=== PATIENT | female | born 1980 | race Two or more races ===

== ENCOUNTER 2017-04-23 13:00 | Outpatient (CLI) | payer MEDICAID | END 2017-04-23 13:01 | disposition critical access hospital (66) | LOC: EMS 13:00 | PROVIDERS: ATTEND Surgery | DX: M54.9 Dorsalgia, unspecified (principal); V43.92XA Unspecified car occupant injured in collision with other type car in traffic accident, initial encounter; Y92.413 State road as the place of occurrence of the external cause | CPT/HCPCS: A0425; A0429 ==

== ENCOUNTER 2017-04-23 13:22 | Emergency (ER) | payer MEDICAID ==
[2017-04-23] MEDS ORDERED: KETOROLAC 60 MG/2 ML VIAL IM STA (13:31)
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
[2017-04-23 14:58] VITALS: BP 131/80
--- NOTE | 2017-04-23 14:59 | CT Preliminary Report ---
Exam: CT CERVICAL SPINE W/O IMPRESSION: 1. No acute bony abnormality. 2. Widening of the C3-C4 interspinous distance of indeterminate significance. That is, whether this i s the patient's baseline appearance versus secondary to ligamentous injury is indeterminate. Therefor e, recommend lateral flexion and extension views. [facility] SITE ID: [id number]
[2017-04-23] MEDS ORDERED: traMADol 50 MG TABLET PO STA (15:01)
[2017-04-23] MEDS ORDERED: METHOCARBAMOL 500 MG TABLET PO STA (15:01)
--- NOTE | 2017-04-23 15:06 | CT Preliminary Report ---
Exam: CT THORACIC SPINE W/O IMPRESSION: 1. No acute bony abnormality. 2. Old mild wedging and degenerative changes throughout the mildly kyphoscoliotic spine. 3. Prior granulomatous process. [facility] SITE ID: [id number]
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
== END 2017-04-23 15:33 | disposition home or self-care (01) ==
LOC: ED 13:22
DX: S16.1XXA Strain of muscle, fascia and tendon at neck level, initial encounter (principal); V53.5XXA Driver of pick-up truck or van injured in collision with car, pick-up truck or van in traffic accident, initial encounter; Y92.481 Parking lot as the place of occurrence of the external cause
CPT/HCPCS: 72125; 72128; 96372; 99283; A9270

== ENCOUNTER 2017-09-05 10:24 | Emergency (ER) | payer MEDICAID ==
[2017-09-05 10:54] LABS: BILIRUBIN,URINE NEGATIVE (NEGATIVE); GLUCOSE, URINE (UA) NEGATIVE (NEGATIVE); KETONES,URINE (UA) NEGATIVE (NEGATIVE); LEUKOCYTE ESTERASE, URINE NEGATIVE (NEGATIVE); NITRITE,URINE NEGATIVE (NEGATIVE); OCCULT BLOOD,URINE LARGE (NEGATIVE); PROTEIN,URINE >=300 mg/dL (NEGATIVE); UROBILINOGEN,URINE 0.2 (NORMAL) E.U./dL (NORMAL)
[2017-09-05 11:10] LABS: CLARITY,URINE HAZY (CLEAR); HCG UR QUAL NEGATIVE
[2017-09-05 11:23] LABS: BACTERIA,URINE Few /HPF (None Seen); MUCUS,URINE Marked Strands; RBC,URINE TNTC /HPF (0-5); SQUAMOUS EPITHELIAL CELL,UR FEW Squamous (<= Few)
--- NOTE | 2017-09-05 12:29 | ED Physician Documentation ---
PD HPI ABD PAIN - Stated complaint Stated Complaint: LOWER BACK PX - Chief complaint Chief Complaint: General - History obtained from History obtained from: Patient - History of Present Illness Timing - onset: How many days ago (several days at this point but has had pain there intermittently for weeks. Hurts with certain ROM. The past few days has been steady pain, not improved even without moving it much.) Timing - duration: Days Timing - details: Gradual onset, Still present, Waxing and waning Quality: Aching, Sharp, Pain Location: RLQ Radiation: Right flank Improved by: No: Eating Worsened by: No: Eating Associated symptoms: No: Fever, Nausea, Vomiting Review of Systems Constitutional: denies: Fever, Chills, Myalgias Nose: denies: Rhinorrhea / runny nose, Congestion Throat: denies: Sore throat Cardiac: denies: Chest pain / pressure, Palpitations, Pedal edema, Calf pain Respiratory: denies: Dyspnea, Cough, Wheezing GI: reports: Nausea. denies: Abdominal Swelling, Vomiting, Constipation, Diarrhea : denies: Dysuria, Frequency, Incontinent, Hematuria, Discharge Skin: denies: Rash, Lesions Musculoskeletal: reports: Back pain. denies: Extremity pain Neurologic: denies: Generalized weakness, Focal weakness, Numbness, Near syncope PD PAST MEDICAL HISTORY - Past Medical History Past Medical History: Yes Cardiovascular: None Respiratory: None Musculoskeletal: None - Past Surgical History Past Surgical History: No - Present Medications Home Medications: Ambulatory Orders Medication Instructions Recorded Confirmed Dexamethasone [Decadron] 4 mg PO DAILY #5 tablet 09/05/17 Methocarbamol [Robaxin] 500 mg PO Q6H PRN #25 tablet 09/05/17 Naproxen 375 mg PO BID #20 tablet 09/05/17 Oxycodone HCl/Acetaminophen 1 each PO Q6H PRN #20 tablet 09/05/17 [Percocet 5-325 mg Tablet] - Allergies Allergies/Adverse Reactions: Allergies Allergy/AdvReac Type Severity Reaction Status Date / Time No Known Drug Allergies Allergy Verified 09/05/17 10:46 - Social History Does the pt smoke?: Yes Smoking Status: Current every day smoker Does the pt drink ETOH?: No Does the pt have substance abuse?: No - Immunizations Immunizations are current?: Yes PD ED PE NORMAL - Vitals Vital signs reviewed: Yes - General General: Alert and oriented X 3, No acute distress, Well developed/nourished - HEENT HEENT: Pharynx benign - Neck Neck: Supple, no meningeal sign, No adenopathy - Cardiac Cardiac: RRR, No murmur - Respiratory Respiratory: Clear bilaterally - Abdomen Abdomen: Normal bowel sounds, Soft, Non tender, Non distended, No organomegaly - Female Female : Deferred - Rectal Rectal: Deferred - Back Back: No spinal TTP, Other (right flank tenderness to palpation and percussion. ) - Derm Derm: Normal color, Warm and dry - Extremities Extremities: No tenderness to palpate, Normal ROM s pain, No edema, No calf tenderness / cord - Neuro Neuro: Alert and oriented X 3, No motor deficit, No sensory deficit, Normal speech Results - Vitals Vitals: Oxygen O2 Source Room air - Labs Labs: Laboratory Tests 09/05/17 10:45 Urine Color YELLOW Urine Clarity HAZY Urine pH 6.0 Ur Specific [place] >=1.030 H Urine Protein >=300 H Urine Glucose (UA) NEGATIVE Urine Ketones NEGATIVE Urine Occult Blood LARGE H Urine Nitrite NEGATIVE Urine Bilirubin NEGATIVE Urine Urobilinogen 0.2 (NORMAL) Ur Leukocyte Esterase NEGATIVE Urine RBC TNTC H Urine WBC 0-3 Ur Squamous Epith Cells FEW Squamous Urine Bacteria Few Urine Casts 0-2 Granular Casts Urine Mucus Marked Strands Ur Microscopic Review INDICATED Urine Culture Comments NOT INDICATED Urine HCG, Qual NEGATIVE - Rads (name of study) kub CT Radiology: Prelim report reviewed (no acute process described. ) PD MEDICAL DECISION MAKING - ED course Complexity details: considered differential (sounded likely kidney stone, but normal CT. Presume musculoskeletal. ), d/w patient - Sepsis Event Vital Signs: Oxygen O2 Source Room air Departure - Departure Disposition: Home, Self Care Clinical Impression: Right flank pain Condition: Stable Record reviewed to determine appropriate education?: Yes Instructions: ED Flank Pain Uncertain Cause Prescriptions: Dexamethasone [Decadron] 4 mg PO DAILY #5 tablet Methocarbamol [Robaxin] 500 mg PO Q6H PRN #25 tablet PRN Reason: Spasms Naproxen 375 mg PO BID #20 tablet Oxycodone HCl/Acetaminophen [Percocet 5-325 mg Tablet] 1 each PO Q6H PRN #20 tablet PRN Reason: Pain Comments: Your urine test appears normal without signs of infection. The CT scan did not show any obvious cause for the pain. There are no kidney stones, tumors, or other notable cause. Presume than this is musculoskeletal pain even though it still had character that sounds different. For now we will try some different anti-inflammatories as well as a muscle relaxant and pain medicine. Recheck if not improved over the next week or so with your primary care. Call to make an appointment with your primary care. Forms: Activity restrictions Discharge Date/Time: 09/05/17 14:09
[2017-09-05] MEDS ORDERED: KETOROLAC 60 MG/2 ML VIAL IM STA (12:49)
[2017-09-05 13:38] VITALS: BP 130/87
--- NOTE | 2017-09-05 13:51 | CT Report ---
Procedure Date: 09/05/2017 Accession Number: [id number] / [id number] Procedure: CT - KUB CPT Code: FULL RESULT: EXAM: CT ABDOMEN AND PELVIS (CT KUB) EXAM DATE: 09/05/2017 01:33 PM. CLINICAL HISTORY: Right flank to low abd pain for a week. COMPARISONS: None. TECHNIQUE: Routine axial helical CT imaging was performed through the abdomen and pelvis without IV contrast. Reconstructions: Coronal and sagittal. In accordance with CT protocol optimization, one or more of the following dose reduction techniques were utilized for this exam: automated exposure control, adjustment of mA and/or KV based on patient size, or use of iterative reconstructive technique. FINDINGS: Lung Bases: Unremarkable. Right Kidney/Ureter: No stones, hydronephrosis, or hydroureter. No perinephric fat stranding. Left Kidney/Ureter: No stones, hydronephrosis, or hydroureter. No perinephric fat stranding. Other Solid Organs: Noncontrast images of the solid organs are grossly unremarkable. Gallbladder/Bile Ducts: Unremarkable. Peritoneal Cavity: No free fluid, free air or wilmer adenopathy. Bowel is grossly unremarkable. Pelvic Organs: No bladder stones or wall thickening. Noncontrast images of the visualized pelvic organs are unremarkable. Vasculature: Unremarkable. Other: Normal appendix is seen. IMPRESSION: 1. No urolithiasis or hydronephrosis. 2. Normal appendix. 3. No other CT finding to explain clinical symptoms. [facility]
[2017-09-05] MEDS ORDERED: oxyCOD/ACETAMIN 5 MG/325 MG TABLET PO STA (14:03)
== END 2017-09-05 14:09 | disposition home or self-care (01) ==
LOC: ED 10:24
DX: R10.9 Unspecified abdominal pain (principal); F17.200 Nicotine dependence, unspecified, uncomplicated
CPT/HCPCS: 74176; 81001; 81003; 81025; 87086; 96372; 99283

== ENCOUNTER 2018-01-16 14:05 | Emergency (ER) | payer MEDICAID ==
[2018-01-16 14:23] VITALS: BP 122/73
--- NOTE | 2018-01-16 15:33 | XRAY Report ---
Reason: left wrist pain Procedure Date: 01/16/2018 Accession Number: [id number] / [id number] Procedure: XR - Wrist 3 View LT CPT Code: FULL RESULT: EXAM: LEFT WRIST RADIOGRAPHY EXAM DATE: 01/16/2018 03:25 PM. CLINICAL HISTORY: Left wrist pain. COMPARISON: None. TECHNIQUE: 3 views. FINDINGS: Bones: Normal. No fractures or bone lesions. Joints: Normal. No subluxations. Soft Tissues: Normal. No soft tissue swelling. IMPRESSION: Normal wrist radiography. [facility]
--- NOTE | 2018-01-16 15:40 | ED Physician Documentation ---
PD HPI UPPER EXT INJURY - Stated complaint Stated Complaint: LT WRIST PX - Chief complaint Chief Complaint: Ext Problem - History obtained from History obtained from: Patient - History of Present Illness Location: Left, Wrist Type of injury: Other (No known injury.) Timing - onset: Yesterday Timing - details: Still present Worsened by: Moving, Palpating Associated symptoms: Tingling Similar symptoms before: Has not had sx before - Additonal information Additional information: Patient is a 37-year-old right-hand dominant female who presents with pain in her left wrist. The pain started yesterday and continues today. She denies any traumatic injury. She has noticed tingling in her fingers. She reports intermittent numbness in her hand; denies weakness. She has no history of similar symptoms in the past. Review of Systems Constitutional: denies: Fever Nose: denies: Congestion Respiratory: denies: Cough GI: denies: Nausea, Vomiting Skin: denies: Rash Musculoskeletal: reports: Joint pain (Left wrist.). denies: Neck pain, Back pain Neurologic: reports: Numbness. denies: Focal weakness PD PAST MEDICAL HISTORY - Past Medical History Cardiovascular: None Respiratory: None Musculoskeletal: None - Past Surgical History Past Surgical History: No - Present Medications Home Medications: Ambulatory Orders Medication Instructions Recorded Confirmed Dexamethasone [Decadron] 4 mg PO DAILY #5 tablet 09/05/17 Methocarbamol [Robaxin] 500 mg PO Q6H PRN #25 tablet 09/05/17 Naproxen 375 mg PO BID #20 tablet 09/05/17 Oxycodone HCl/Acetaminophen 1 each PO Q6H PRN #20 tablet 09/05/17 [Percocet 5-325 mg Tablet] Naproxen [Naprosyn] 500 mg PO BID PRN #30 tablet 01/16/18 - Allergies Allergies/Adverse Reactions: Allergies Allergy/AdvReac Type Severity Reaction Status Date / Time No Known Drug Allergies Allergy Verified 09/05/17 10:46 - Social History Does the pt smoke?: Yes Smoking Status: Current every day smoker Does the pt drink ETOH?: No Does the pt have substance abuse?: No - Immunizations Immunizations are current?: Yes PD ED PE NORMAL - Vitals Vital signs reviewed: Yes (normal) - General General: Alert and oriented X 3, Well developed/nourished - HEENT HEENT: Atraumatic - Respiratory Respiratory: No respiratory distress - Derm Derm: No rash - Extremities Extremities: No deformity, Other (There is tenderness to palpation along the extensor aspect of the left wrist, without bony tenderness to palpation. There is slight tenderness to percussion at the volar aspect as well, over the median nerve. Distal neurovascular is intact. Her symptoms are exacerbated with extension and flexion of the wrist.) - Neuro Neuro: Alert and oriented X 3, No motor deficit, No sensory deficit Results - Vitals Vitals: Oxygen O2 Source Room air - Labs Labs: Laboratory Tests 01/16/18 15:35 TSH 2.34 - Rads (name of study) left wrist Radiology: Prelim report reviewed, EMP read contemporaneously, See rad report (Normal wrist radiography.) PD MEDICAL DECISION MAKING - ED course Complexity details: reviewed results, re-evaluated patient, considered differential, d/w patient ED course: The patient's presentation is most consistent with extensor tendinitis of the left wrist. There is no evidence of bony abnormality on x-ray examination. Her presentation does not suggest carpal tunnel syndrome, and her TSH is normal. Treatment in the emergency department included administration of a Velcro wrist splint. Naprosyn 500 mg is administered orally. I discussed with her the expected course of injury, symptomatic treatment and outpatient follow-up, as well as potentially worrisome signs or symptoms that should prompt reevaluation in the emergency department. She is being discharged with a prescription for Naprosyn. Departure - Departure Disposition: 01 Home, Self Care Clinical Impression: Tendonitis Condition: Stable Instructions: ED Sprain Wrist Follow-Up: [facility] [Provider Group] Prescriptions: Naproxen [Naprosyn] 500 mg PO BID PRN #30 tablet PRN Reason: Pain Comments: Wear the wrist splint if it provides comfort. You can use Naprosyn as prescribed if needed for pain. Let pain be your guide to activity level. Follow-up with your primary physician within 2 weeks. Call to schedule an appointment. Return to the emergency department if you develop increasing pain or swelling of your wrist, or otherwise worsening symptoms. Discharge Date/Time: 01/16/18 16:32
[2018-01-16] MEDS ORDERED: NAPROXEN 250 MG TABLET PO STA (15:41)
== END 2018-01-16 16:32 | disposition home or self-care (01) ==
LOC: ED 14:05
DX: M77.9 Enthesopathy, unspecified (principal); F17.200 Nicotine dependence, unspecified, uncomplicated
CPT/HCPCS: 36415; 73110; 84443; 99283; A9270

== ENCOUNTER 2018-04-18 11:43 | Emergency (ER) | payer MEDICAID ==
[2018-04-18 11:58] VITALS: BP 123/73
[2018-04-18] MEDS ORDERED: NAPROXEN 250 MG TABLET PO STA (12:34)
--- NOTE | 2018-04-18 12:37 | ED Physician Documentation ---
PD HPI BACK PAIN - Stated complaint Stated Complaint: BACK PX - Chief complaint Chief Complaint: Back Pain - History obtained from History obtained from: Patient - History of Present Illness Timing - onset: How many days ago (4) Timing - details: Gradual onset Location: Upper Quality: Pain, Spasm, Sharp. No: Tearing Associated symptoms: No: Fever, Weakness, Numbness, Incontinent of urine, Unable to urinate, Hematuria, Incontinent of stool Improves with: Rest Worsened by: Movement, Lifting, Twisting, Palpation Contributing factors: Lifting, Twisting. No: Trauma, Anticoagulated, Cancer, IVDA, Out of meds Similar symptoms before: Diagnosis Recently seen: Other (The patient has a history of similar pain in the past, in the past the patient seen a chiropractor which is helped with her symptoms. This is similar to prior episodes) Review of Systems Constitutional: denies: Fever, Chills Eyes: denies: Discharge Ears: denies: Ear pain Nose: denies: Congestion Throat: denies: Sore throat Cardiac: denies: Chest pain / pressure Respiratory: denies: Cough GI: denies: Abdominal Pain : denies: Dysuria, Unable to Void Musculoskeletal: reports: Back pain. denies: Neck pain, Joint pain, Extremity swelling Neurologic: denies: Generalized weakness, Focal weakness, Numbness, Difficulty speaking PD PAST MEDICAL HISTORY - Past Medical History Cardiovascular: None Respiratory: None Musculoskeletal: None - Past Surgical History Past Surgical History: No - Present Medications Home Medications: Ambulatory Orders Medication Instructions Recorded Confirmed Dexamethasone [Decadron] 4 mg PO DAILY #5 tablet 09/05/17 Methocarbamol [Robaxin] 500 mg PO Q6H PRN #25 tablet 09/05/17 Naproxen 375 mg PO BID #20 tablet 09/05/17 Oxycodone HCl/Acetaminophen 1 each PO Q6H PRN #20 tablet 09/05/17 [Percocet 5-325 mg Tablet] Naproxen [Naprosyn] 500 mg PO BID PRN #30 tablet 01/16/18 Naproxen 500 mg PO BID PRN #60 tablet 04/18/18 diazePAM [Valium] 5 mg PO TID PRN #15 tablet 04/18/18 - Allergies Allergies/Adverse Reactions: Allergies Allergy/AdvReac Type Severity Reaction Status Date / Time No Known Drug Allergies Allergy Verified 04/18/18 11:58 - Social History Does the pt smoke?: Yes Smoking Status: Current every day smoker Does the pt drink ETOH?: No Does the pt have substance abuse?: No - Immunizations Immunizations are current?: Yes PD ED PE NORMAL - General General: Alert and oriented X 3, No acute distress - HEENT HEENT: Atraumatic, PERRL, EOMI, Ears normal - Cardiac Cardiac: RRR, Strong equal pulses - Respiratory Respiratory: No respiratory distress, Clear bilaterally - Back Back: Other (The patient has paraspinal tenderness in the thoracic back, there is no crepitus, no swelling, no subcutaneous emphysema, no erythema or skin changes) - Derm Derm: Normal color - Extremities Extremities: No deformity - Neuro Neuro: Alert and oriented X 3, No motor deficit, Normal speech - Psych Psych: Normal mood Results - Vitals Vitals: Vital Signs - 24 hr 04/18/18 11:55 Temperature 36.1 C L Heart Rate 104 H Respiratory 14 Rate Blood Pressure 123/73 O2 Saturation 100 Oxygen O2 Source Room air PD MEDICAL DECISION MAKING - ED course ED course: The patient's pain is consistent with a musculoskeletal etiology, presently there is no findings on her physical exam or history to Suggest acute cauda equina or epidural abscess necessitating emergent MRI. There is no findings on her physical or history to suggest PE or aortic dissection. Presently the patient will be treated for muscular skeletal back pain as an outpatient and currently I do not think any further workup is needed in the emergency department. The patient appears appropriate for discharge and ongoing outpatient management. I discussed warning signs and recommended returning for any worsening or any concerns. Departure - Departure Disposition: 01 Home, Self Care Clinical Impression: Back pain Qualifiers: Back pain location: thoracic back pain Chronicity: acute Back pain laterality: unspecified Qualified Code(s): M54.6 - Pain in thoracic spine Condition: Good Instructions: Back Pain Relieve, Back Safety Lifting Follow-Up: [facility] [Provider Group] Prescriptions: diazePAM [Valium] 5 mg PO TID PRN #15 tablet PRN Reason: Spasms Naproxen 500 mg PO BID PRN #60 tablet PRN Reason: Pain Comments: Please follow-up with primary care. Please asked for them to arrange for outpatient physical therapy Please return to the emergency department for any worsening or any concerns
== END 2018-04-18 12:55 | disposition home or self-care (01) ==
LOC: ED 11:43
DX: M54.6 Pain in thoracic spine (principal)
CPT/HCPCS: 99283; A9270

== ENCOUNTER 2018-06-03 20:29 | Emergency (ER) | payer MEDICAID ==
[2018-06-03] MEDS ORDERED: ACETAMINOPHEN 500 MG TABLET PO STA (21:45)
[2018-06-03] MEDS ORDERED: IBUPROFEN 600 MG TABLET PO STA (21:45)
[2018-06-03] MEDS ORDERED: BENZONATATE 100 MG CAPSULE PO STA (21:59)
[2018-06-03] MEDS ORDERED: DEXAMETHASONE 10 MG/ML VIAL PO STA (21:59)
--- NOTE | 2018-06-03 22:00 | ED Physician Documentation ---
History of Present Illness - Stated complaint Stated Complaint: FLU LIKE SYMPTOMS - Chief complaint Chief Complaint: General - Additonal information Additional information: 37-year-old female presents the emergency department with 4 days of body aches, chills, sore throat, cough and general fatigue. The patient gets symptomatic relief with antipyretics. The patient does continue to smoke. No other associated symptoms. Symptoms are described as moderate. Review of Systems Constitutional: reports: Fever, Chills, Myalgias, Fatigue Eyes: denies: Discharge Ears: denies: Ear pain Nose: reports: Rhinorrhea / runny nose, Congestion Throat: reports: Sore throat Respiratory: reports: Cough. denies: Dyspnea, Wheezing GI: denies: Vomiting : denies: Dysuria Skin: denies: Lesions Musculoskeletal: denies: Neck pain Neurologic: denies: Generalized weakness PD PAST MEDICAL HISTORY - Past Medical History Cardiovascular: None Respiratory: None Musculoskeletal: None - Past Surgical History Past Surgical History: No - Present Medications Home Medications: Ambulatory Orders Medication Instructions Recorded Confirmed Dexamethasone [Decadron] 4 mg PO DAILY #5 tablet 09/05/17 Methocarbamol [Robaxin] 500 mg PO Q6H PRN #25 tablet 09/05/17 Naproxen 375 mg PO BID #20 tablet 09/05/17 Oxycodone HCl/Acetaminophen 1 each PO Q6H PRN #20 tablet 09/05/17 [Percocet 5-325 mg Tablet] Naproxen [Naprosyn] 500 mg PO BID PRN #30 tablet 01/16/18 Naproxen 500 mg PO BID PRN #60 tablet 04/18/18 diazePAM [Valium] 5 mg PO TID PRN #15 tablet 04/18/18 Benzonatate [Tessalon Perle] 100 - 200 mg PO TID PRN #30 capsule 06/03/18 - Allergies Allergies/Adverse Reactions: Allergies Allergy/AdvReac Type Severity Reaction Status Date / Time No Known Drug Allergies Allergy Verified 04/18/18 11:58 - Social History Does the pt smoke?: Yes Smoking Status: Current every day smoker Does the pt drink ETOH?: No Does the pt have substance abuse?: No - Immunizations Immunizations are current?: Yes PD ED PE NORMAL - General General: Alert and oriented X 3, No acute distress - HEENT HEENT: Atraumatic, PERRL, EOMI, Ears normal, Pharynx benign - Neck Neck: Supple, no meningeal sign - Cardiac Cardiac: RRR, Strong equal pulses - Respiratory Respiratory: No respiratory distress - Abdomen Abdomen: Soft, Non tender - Derm Derm: Normal color - Extremities Extremities: No deformity - Neuro Neuro: Alert and oriented X 3, Normal speech - Psych Psych: Normal mood Results - Vitals Vitals: Vital Signs - 24 hr 06/03/18 20:59 Temperature 37.7 C H Heart Rate 120 H Respiratory 18 Rate Blood Pressure 117/78 O2 Saturation 99 Oxygen O2 Source Room air - Labs Labs: Laboratory Tests 06/03/18 21:05 Influenza A (Rapid) POSITIVE H Influenza B (Rapid) Negative PD MEDICAL DECISION MAKING - ED course ED course: The patient is tested positive for influenza A, the patient falls outside the treatment time frame for treatment with Tamiflu. The patient has no other secondary signs of a bacterial etiology and has no evidence of clinical respiratory distress or clinical pneumonia. Presently the patient appears appropriate for ongoing outpatient management. I discussed warning signs and recommended returning for any worsening or any concerns Departure - Departure Disposition: 01 Home, Self Care Clinical Impression: Influenza Condition: Good Instructions: ED Flu Prescriptions: Benzonatate [Tessalon Perle] 100 - 200 mg PO TID PRN #30 capsule PRN Reason: Cough Comments: Please follow-up with primary care for recheck and reevaluation You fall outside the treatment timeframe for Tamiflu Please return to the emergency department for any worsening or any concerns
[2018-06-03 22:14] VITALS: BP 117/80
== END 2018-06-03 22:25 | disposition home or self-care (01) ==
LOC: ED 20:29
DX: J10.1 Influenza due to other identified influenza virus with other respiratory manifestations (principal); F17.200 Nicotine dependence, unspecified, uncomplicated
CPT/HCPCS: 87275; 87276; 99283; A9270

== ENCOUNTER 2018-06-09 15:34 | Emergency (ER) | payer MEDICAID ==
--- NOTE | 2018-06-09 18:16 | XRAY Report ---
Reason: cough Procedure Date: 06/09/2018 Accession Number: [id number] / [id number] Procedure: XR - Chest 2 View X-Ray CPT Code: 46255 FULL RESULT: EXAM: CHEST RADIOGRAPHY EXAM DATE: 06/09/2018 06:01 PM. CLINICAL HISTORY: Cough. COMPARISON: None. TECHNIQUE: 2 views. FINDINGS: Lungs/Pleura: No focal opacities evident. No pleural effusion. No pneumothorax. Normal volumes. Mediastinum: Heart and mediastinal contours are unremarkable. Other: None. IMPRESSION: Normal 2-view chest radiography. RADIA
--- NOTE | 2018-06-09 18:35 | ED Physician Documentation ---
PD HPI URI - Stated complaint Stated Complaint: COUGHING - Chief complaint Chief Complaint: Resp - History obtained from History obtained from: Patient - History of Present Illness Timing - onset: Other (37-year-old woman who smokes has had 2 weeks of nonproductive cough after having influenza. There is no fever. No phlegm production. No persistent URI symptoms. She is short of breath but only when she is coughing severely. She tried a friend's inhaler today which was helpful.) Review of Systems Constitutional: denies: Fever, Chills Throat: denies: Dental pain / toothache, Sore throat Cardiac: denies: Chest pain / pressure, Palpitations PD PAST MEDICAL HISTORY - Past Medical History Past Medical History: No Cardiovascular: None Respiratory: None Musculoskeletal: None - Past Surgical History Past Surgical History: No - Present Medications Home Medications: Ambulatory Orders Medication Instructions Recorded Confirmed Dexamethasone [Decadron] 4 mg PO DAILY #5 tablet 09/05/17 Methocarbamol [Robaxin] 500 mg PO Q6H PRN #25 tablet 09/05/17 Naproxen 375 mg PO BID #20 tablet 09/05/17 Oxycodone HCl/Acetaminophen 1 each PO Q6H PRN #20 tablet 09/05/17 [Percocet 5-325 mg Tablet] Naproxen [Naprosyn] 500 mg PO BID PRN #30 tablet 01/16/18 Naproxen 500 mg PO BID PRN #60 tablet 04/18/18 diazePAM [Valium] 5 mg PO TID PRN #15 tablet 04/18/18 Benzonatate [Tessalon Perle] 100 - 200 mg PO TID PRN #30 capsule 06/03/18 Albuterol Sulf [Ventolin Hfa 1 - 2 puffs INH Q4HR PRN #1 inhaler 06/09/18 Inhaler] Benzonatate [Tessalon Perle] 100 - 200 mg PO TID PRN #30 capsule 06/09/18 guaiFENesin/CODEINE [Robitussin AC] 5 - 10 ml PO Q6H PRN #120 ml 06/09/18 predniSONE [Deltasone] 60 mg PO DAILY 5 Days tablet 06/09/18 - Allergies Allergies/Adverse Reactions: Allergies Allergy/AdvReac Type Severity Reaction Status Date / Time No Known Drug Allergies Allergy Verified 06/09/18 15:53 - Social History Does the pt smoke?: Yes Smoking Status: Current every day smoker Does the pt drink ETOH?: No Does the pt have substance abuse?: No - Immunizations Immunizations are current?: Yes - POLST Patient has POLST: No PD ED PE NORMAL - Vitals Vital signs reviewed: Yes - General General: Alert and oriented X 3 (Frequent coughing) - HEENT HEENT: Pharynx benign - Cardiac Cardiac: RRR, No murmur - Respiratory Respiratory: No respiratory distress, Clear bilaterally - Abdomen Abdomen: Non tender, Non distended - Neuro Neuro: Alert and oriented X 3, Normal speech Results - Vitals Vitals: Vital Signs - 24 hr 06/09/18 06/09/18 15:51 17:49 Temperature 36.6 C 36.9 C Heart Rate 111 H 94 Respiratory 20 18 Rate Blood Pressure 126/46 L 129/69 O2 Saturation 99 99 Oxygen O2 Source Room air - Rads (name of study) 2 view chest Radiology: EMP read contemporaneously (normal) PD MEDICAL DECISION MAKING - ED course ED course: This is a 37-year-old woman with viral bronchitis which is treated symptomatically. I reassured her that there is no role for antibiotics and that she should quit smoking. Departure - Departure Disposition: 01 Home, Self Care Clinical Impression: Viral bronchitis Condition: Good Record reviewed to determine appropriate education?: Yes Instructions: ED Bronchitis Asthmatic, ED Smoking Cessation Prescriptions: Albuterol Sulf [Ventolin Hfa Inhaler] 1 - 2 puffs INH Q4HR PRN #1 inhaler PRN Reason: Shortness Of Air/Wheezing Benzonatate [Tessalon Perle] 100 - 200 mg PO TID PRN #30 capsule PRN Reason: Cough guaiFENesin/CODEINE [Robitussin AC] 5 - 10 ml PO Q6H PRN #120 ml PRN Reason: Cough predniSONE [Deltasone] 60 mg PO DAILY 5 Days tablet Comments: Call your doctor to arrange a follow-up appointment, make the next available appointment. In the interim, return anytime if worse or if new symptoms develop.
[2018-06-09 18:48] VITALS: BP 120/68
== END 2018-06-09 18:46 | disposition home or self-care (01) ==
LOC: ED 15:34
DX: J40 Bronchitis, not specified as acute or chronic (principal); B97.89 Other viral agents as the cause of diseases classified elsewhere; F17.200 Nicotine dependence, unspecified, uncomplicated
CPT/HCPCS: 71046; 99283

== ENCOUNTER 2019-02-23 10:29 | Outpatient (CLI) | payer MEDICAID ==
[2019-02-23 12:54] LABS: BASOPHILS # (AUTO) 0.1 10^3/uL (0.0-0.1); BASOPHILS % (AUTO) 0.7 %; EOSINOPHILS # (AUTO) 0.2 10^3/uL (0.0-0.7); HGB - HEMOGLOBIN 13.1 g/dL (12.0-16.0); LYMPHOCYTES # (AUTO) 2.7 10^3/uL (1.5-3.5); LYMPHOCYTES % (AUTO) 30.5 %; MEAN CORPUSCULAR HEMOGLOBIN 26.7 pg (27.0-31.0); MEAN CORPUSCULAR HGB CONC 30.9 g/dL (32.0-36.0); MEAN CORPUSCULAR VOLUME 86.5 fL (81.0-99.0); MEAN PLATELET VOLUME 11.4 fL (7.9-10.8); MONOCYTES # (AUTO) 0.9 10^3/uL (0.0-1.0); MONOCYTES % (AUTO) 9.9 %; NEUTROPHILS % (AUTO) 56.6 %; PLT - PLATELET COUNT 291 10^3/uL (130-450); RED CELL DISTRIBUTION WIDTH 14.6 % (12.0-15.0); WHITE BLOOD COUNT 8.8 x10^3/uL (4.8-10.8)
[2019-02-23 13:14] LABS: ALBUMIN 3.8 g/dL (3.2-5.5); ALBUMIN/GLOBULIN RATIO 1.1 (1.0-2.2); BILIRUBIN,TOTAL 0.6 mg/dL (0.2-1.0); CALCIUM 8.9 mg/dL (8.5-10.3); CREATININE 0.6 mg/dL (0.4-1.0); TOTAL PROTEIN 7.4 g/dL (6.7-8.2)
== END 2019-02-23 23:59 | disposition home or self-care (01) ==
LOC: LAB.N 10:29
PROVIDERS: ATTEND Physician Assistant Medical
DX: Z72.0 Tobacco use (principal); R03.0 Elevated blood-pressure reading, without diagnosis of hypertension
CPT/HCPCS: 36415; 80053; 84443; 85025

== ENCOUNTER 2019-09-08 08:38 | Emergency (ER) | payer MEDICAID ==
--- NOTE | 2019-09-08 08:56 | ED Physician Documentation ---
PD HPI BACK PAIN - Stated complaint Stated Complaint: LOWER BACK PX - Chief complaint Chief Complaint: Back Pain - History obtained from History obtained from: Patient - History of Present Illness Timing - onset: How many months ago (2-3 months of lower back pain with ROM and use. Noted worse the past 1-2 days and is markedly worse today.) Timing - duration: Days (worse in 1-2 days, with some stiffness of back for couple of months. Marked pain right flank to abd today.) Timing - details: Gradual onset, Waxing and waning Location: Mid, Lower, Right Quality: Pain, Spasm, Aching Associated symptoms: No: Fever, Weakness, Numbness, Incontinent of urine Worsened by: Movement Contributing factors: No: Lifting, Twisting, Anticoagulated Similar symptoms before: No diagnosis (low back pain without radicular symptoms, had not had Rx nor workup by PMD as yet.) Recently seen: Not recently seen Review of Systems Constitutional: denies: Fever, Chills Nose: denies: Rhinorrhea / runny nose, Congestion Throat: denies: Sore throat Respiratory: denies: Cough GI: reports: Abdominal Pain (right low back and feeling of it to right lower abd). denies: Nausea, Vomiting, Diarrhea, Bloody / black stool : denies: Dysuria, Frequency, Incontinent Skin: denies: Rash, Lesions Musculoskeletal: reports: Back pain. denies: Neck pain Neurologic: denies: Focal weakness, Numbness, Near syncope PD PAST MEDICAL HISTORY - Past Medical History Cardiovascular: None Respiratory: None Neuro: None : None Musculoskeletal: None - Past Surgical History Past Surgical History: No - Present Medications Home Medications: Ambulatory Orders Medication Instructions Recorded Confirmed Naproxen 375 mg PO BID #20 tablet 09/05/17 Oxycodone HCl/Acetaminophen 1 each PO Q6H PRN #20 tablet 09/05/17 [Percocet 5-325 mg Tablet] dexAMETHasone [Decadron] 4 mg PO DAILY #5 tablet 09/05/17 methocarbamoL [Robaxin] 500 mg PO Q6H PRN #25 tablet 09/05/17 Naproxen [Naprosyn] 500 mg PO BID PRN #30 tablet 01/16/18 Naproxen 500 mg PO BID PRN #60 tablet 04/18/18 diazePAM [Valium] 5 mg PO TID PRN #15 tablet 04/18/18 Benzonatate [Tessalon Perle] 100 - 200 mg PO TID PRN #30 capsule 06/03/18 Albuterol Sulf [Ventolin Hfa 1 - 2 puffs INH Q4HR PRN #1 inhaler 06/09/18 Inhaler] Benzonatate [Tessalon Perle] 100 - 200 mg PO TID PRN #30 capsule 06/09/18 guaiFENesin/CODEINE [Robitussin AC] 5 - 10 ml PO Q6H PRN #120 ml 06/09/18 predniSONE [Deltasone] 60 mg PO DAILY 5 Days tablet 06/09/18 Hydrocodone/Acetaminophen [[place] 1 each PO Q6H PRN #20 tablet 09/08/19 5-325 Tablet] Naproxen 500 mg PO BID #20 tablet 09/08/19 Tizanidine HCl 4 mg PO TID PRN #25 capsule 09/08/19 - Allergies Allergies/Adverse Reactions: Allergies Allergy/AdvReac Type Severity Reaction Status Date / Time No Known Drug Allergies Allergy Verified 09/08/19 08:48 - Social History Does the pt smoke?: Yes Smoking Status: Current every day smoker Does the pt drink ETOH?: No Does the pt have substance abuse?: No - Immunizations Immunizations are current?: Yes - POLST Patient has POLST: No PD ED PE NORMAL - Vitals Vital signs reviewed: Yes - General General: Alert and oriented X 3, Well developed/nourished, Other (appears in pain at flank and to side of abd. ) - HEENT HEENT: Moist mucous membranes, Pharynx benign - Cardiac Cardiac: RRR, No murmur - Respiratory Respiratory: Clear bilaterally - Abdomen Abdomen: Normal bowel sounds, Soft, Non tender - Derm Derm: Normal color, Warm and dry - Extremities Extremities: No deformity, No tenderness to palpate, No edema Results - Vitals Vitals: Vital Signs - 24 hr 09/08/19 09/08/19 08:49 10:21 Temperature 35.8 C L 36.9 C Heart Rate 94 99 Respiratory 18 16 Rate Blood Pressure 129/85 H 128/93 H O2 Saturation 98 98 Oxygen O2 Source Room air - Labs Labs: Laboratory Tests 09/08/19 09/08/19 09:03 09:03 Urine Color DARK YELLOW Urine Clarity CLEAR Urine pH 7.5 Ur Specific [place] 1.025 1.025 Urine Protein >=300 H Urine Glucose (UA) NEGATIVE Urine Ketones NEGATIVE Urine Occult Blood LARGE H Urine Nitrite NEGATIVE Urine Bilirubin NEGATIVE Urine Urobilinogen 0.2 (NORMAL) Ur Leukocyte Esterase NEGATIVE Urine RBC TNTC H Urine WBC 0-3 Ur Squamous Epith Cells FEW Squamous Urine Bacteria Few Urine Culture Comments NOT INDICATED Urine HCG, Qual NEGATIVE - Rads (name of study) KUB CT Radiology: Prelim report reviewed (normal), See rad report PD MEDICAL DECISION MAKING - ED course Complexity details: considered differential (muscular pain with spasm versus kidney pain since abrupt worse. Can get CT. No rash nor sores of skin but could consider early shingles. ), d/w patient Departure - Departure Disposition: 01 Home, Self Care Clinical Impression: Low back strain Qualifiers: Encounter type: initial encounter Qualified Code(s): S39.012A - Strain of muscle, fascia and tendon of lower back, initial encounter Condition: Stable Record reviewed to determine appropriate education?: Yes Instructions: ED Low Back Pain Injury Follow-Up: Marcellus Shore MD [Provider Admit Priv/Credential] - Prescriptions: Naproxen 500 mg PO BID #20 tablet Hydrocodone/Acetaminophen [[place] 5-325 Tablet] 1 each PO Q6H PRN #20 tablet PRN Reason: Pain Tizanidine HCl 4 mg PO TID PRN #25 capsule PRN Reason: Spasms Comments: No kidney stones nor signs of kidney infection. No other acute process is seen on the CT scan. Presume this is muscular low back pain. Likely some element of spasming. Physical treatments such as massage and chiropractic can be useful for the back. Heat and gentle stretching for the back. Off work for a day or 2 to help it relax. Anti-inflammatory such as naproxen 2-3 times daily with food. To that add tizanidine muscle relaxant for spasms and stiffness and then Tylenol or hydrocodone as needed for pains. Recheck if not improved well over the next several days to week or so. Forms: Activity restrictions Discharge Date/Time: 09/08/19 10:21
[2019-09-08 09:12] LABS: BILIRUBIN,URINE NEGATIVE (NEGATIVE); GLUCOSE, URINE (UA) NEGATIVE (NEGATIVE); KETONES,URINE (UA) NEGATIVE (NEGATIVE); LEUKOCYTE ESTERASE, URINE NEGATIVE (NEGATIVE); NITRITE,URINE NEGATIVE (NEGATIVE); OCCULT BLOOD,URINE LARGE (NEGATIVE); PH,URINE 7.5 PH (5.0-7.5); PROTEIN,URINE >=300 mg/dL (NEGATIVE); UROBILINOGEN,URINE 0.2 (NORMAL) E.U./dL (NORMAL)
[2019-09-08 09:16] LABS: CLARITY,URINE CLEAR (CLEAR)
[2019-09-08 09:18] LABS: HCG UR QUAL NEGATIVE
[2019-09-08 09:24] LABS: BACTERIA,URINE Few /HPF (None Seen); RBC,URINE TNTC /HPF (0-5); SQUAMOUS EPITHELIAL CELL,UR FEW Squamous (<= Few)
[2019-09-08] MEDS ORDERED: ACETAMINOPHEN 325 MG TABLET PO STA (09:26)
[2019-09-08] MEDS ORDERED: KETOROLAC 60 MG/2 ML VIAL IM STA (09:26)
--- NOTE | 2019-09-08 10:07 | CT Report ---
PROCEDURE: Abdomen/Pelvis WO INDICATIONS: right flank pain TECHNIQUE: Noncontrast 5 mm thick sections acquired from the diaphragms to the symphysis. 5 mm coronal and sagi ttal reformats were then performed. For radiation dose reduction, the following was used: automated exposure control, adjustment of mA and/or kV according to patient size. COMPARISON: 09/05/2017. FINDINGS: Image quality: Excellent. ABDOMEN: Lung bases: Lung bases are clear. Heart size is normal. Solid organs: Liver and spleen are normal in size. Gallbladder is within normal limits Pancreas is normal in contours. No adrenal nodules. Kidneys are normal in size, without hydronephrosis or neph rolithiasis. 7 mm cyst is seen in posterior lateral cortex of mid pole left kidney. Peritoneum and bowel: Unenhanced bowel loops demonstrate normal wall thickness and caliber. No free fluid or air. Appendix is visualized and is within normal limits. Nodes and vessels: No retroperitoneal or mesenteric adenopathy by size criteria. Aorta and inferior vena cava are normal in caliber. Miscellaneous: No ventral hernias. PELVIS: Genitourinary: Bladder wall thickness is normal. Uterus and bilateral ovaries are visualized and ar e within normal limits. Miscellaneous: No inguinal lymphadenopathy. Small left inguinal hernia containing fat is seen. Bones: No suspicious bony lesions. No vertebral body compression fractures. IMPRESSION: 1. No renal stone or hydronephrosis. Tiny left renal cyst. Normal-appearing visualized bilateral uret ers and urinary bladder. 2. Normal appendix. No bowel obstruction. No abnormal bowel wall thickening. No free fluid or free ai r. Reviewed by: Lion Kramer MD on 09/08/2019 10:06 AM PDT Approved by: Lion Kramer MD on 09/08/2019 10:06 AM PDT Station ID: [id number]
[2019-09-08 10:21] VITALS: BP 128/93
== END 2019-09-08 10:21 | disposition home or self-care (01) ==
LOC: ED 08:38
DX: S39.012A Strain of muscle, fascia and tendon of lower back, initial encounter (principal); X58.XXXA Exposure to other specified factors, initial encounter; F17.200 Nicotine dependence, unspecified, uncomplicated
CPT/HCPCS: 74176; 81001; 81025; 96372; 99284; A9270; 87086

== ENCOUNTER 2020-05-24 14:57 | Emergency (ER) | payer MEDICAID ==
[2020-05-24] MEDS ORDERED: KETOROLAC 60 MG/2 ML VIAL IM STA (15:15)
--- NOTE | 2020-05-24 15:18 | ED Physician Documentation ---
History of Present Illness - Stated complaint Stated Complaint: BACK PX - Additonal information Additional information: 39-year-old female presents the emergency department for evaluation of lower lumbar back pain. She reports that intermittently for about 1 year she has felt 3 discrete lumps/bumps in her lower lumbar spine. She has presented for similar in the past. She reports that she is always told that is musculoskeletal but she feels it is different this time. She has had no recent falls or trauma. No saddle anesthesia. No urinary symptoms or bowel or bladder incontinence. She has a normal gait. Reports taking Motrin without relief of pain. She reports that she has these bumps that she can always feel but sometimes they are more painful than other times. Patient reports having [place] and Percocet at home for pain but does not take it. She would like to know what the lumps that she feels in her lower back are. Review of Systems Constitutional: reports: Reviewed and negative Ears: reports: Reviewed and negative Nose: reports: Reviewed and negative Throat: reports: Reviewed and negative Cardiac: reports: Reviewed and negative Respiratory: reports: Reviewed and negative GI: reports: Reviewed and negative. denies: Abdominal Swelling, Nausea, Vomiting : denies: Dysuria, Frequency Skin: reports: Reviewed and negative Musculoskeletal: reports: Back pain Neurologic: reports: Reviewed and negative Psychiatric: reports: Reviewed and negative PD PAST MEDICAL HISTORY - Past Medical History Cardiovascular: None Respiratory: None Neuro: None : None Musculoskeletal: None - Past Surgical History Past Surgical History: No - Present Medications Home Medications: Ambulatory Orders Medication Instructions Recorded Confirmed predniSONE [Deltasone] 40 mg PO DAILY #10 tab 05/24/20 - Allergies Allergies/Adverse Reactions: Allergies Allergy/AdvReac Type Severity Reaction Status Date / Time No Known Drug Allergies Allergy Verified 05/24/20 15:17 - Social History Does the pt smoke?: Yes Smoking Status: Current every day smoker Does the pt drink ETOH?: No Does the pt have substance abuse?: No - Immunizations Immunizations are current?: Yes - POLST Patient has POLST: No PD ED PE EXPANDED - General General: Alert, No acute distress - Back Back: Soft tissue tenderness (tenderness lower lumbar/sacral spine without crepitus, swelling or erythema. Lower lumbar area assessed with ultrasound to feel over the area of lumps that poise patient elicits. No fluid collection was identified.). No: Normal ROM (normal gait; ), Vertebral tenderness, CVA TTP right, CVA TTP left - Derm Derm: Normal color, Warm and dry Results - Vitals Vitals: Oxygen O2 Source Room air - Rads (name of study) Lumbar XR Radiology: Final report received (L5-S1 pars interarticularis defect. Could be further assessed with MRI. No acute fracture no osseous lesion.) PD MEDICAL DECISION MAKING - ED course Complexity details: reviewed results, re-evaluated patient, considered differential, d/w patient ED course: 39-year-old female presents emergency department for evaluation of acute on chronic lower lumbar back pain. She is had this pain for more than a year with intermittent flares. When she has a flare of the pain she reports that there are 3 lumps or balls that she feels that she can move around with her hand and finger. On exam I did use ultrasound but did not identify any fluid collec tions. X-ray of the lumbar spine shows no acute fracture. She has no red flags and has a normal gait. The etiology of the lumps or bumps that she refers to are not clear on exam though I suspect she may have some component of spasm. I will write her for a 5-day course of steroids. Will defer any opiate narcotics given that she reports she has this at home. She will follow up with her primary care provider. I have advised that she should obtain referral for physical therapy and/or MRI imaging. Emergent return precautions discussed for worsening symptoms/red flags Departure - Departure Disposition: 01 Home, Self Care Clinical Impression: Low back pain Qualifiers: Chronicity: unspecified Back pain laterality: unspecified Sciatica presence: without sciatica Qualified Code(s): M54.5 - Low back pain Condition: Stable Record reviewed to determine appropriate education?: Yes Prescriptions: predniSONE [Deltasone] 40 mg PO DAILY #10 tab Comments: Hallie is important that you schedule an appointment with your primary care provider for long-term follow-up with your low back pain. They may want to consider referral for you to physical therapy and or an MRI of your lower lumbar spine. To help manage the pain over the next few days I have prescribed a short course of prednisone. While taking this medication do not take other NSAID medication such as Aleve, naproxen or ibuprofen. You may also benefit from using a warm compress on your lower back. I suspect that the balls that you feel may be tissue and spasm. If at any point you develop numbness or tingling between your legs, cannot control the flow of your bowel or bladder, have weakness then please return immediately to the ER for a second look.
[2020-05-24] MEDS ORDERED: oxyCODONE 5 MG TABLET PO STA (15:34)
--- NOTE | 2020-05-24 15:42 | XRAY Report ---
PROCEDURE: Lumbar Spine 2 View INDICATIONS: LOWER LUMBAR TECHNIQUE: 2 views of the lumbar spine were acquired. COMPARISON: None. FINDINGS: Bones: 5 [id number] vertebrae are present. There is normal bony alignment. No vertebral body compression fractures. No suspicious bony lesions. Possible L5-S1 pars interarticularis defects johnny aterally. Soft tissues: Overlying bowel gas pattern is normal. No suspicious soft tissue calcifications. IMPRESSION: 1. Possible L5-S1 pars interarticularis defects. This could be further assessed with MRI, if clinical ly indicated. 2. No acute fracture. No osseous lesion. If symptoms and/or clinical suspicion for pathology continue , further assessment with repeat plain films, or advanced imaging (e.g., CT, MRI, or bone scan) is re commended for further assessment. Reviewed by: Melina Live MD on 05/24/2020 3:[address] [facility] Approved by: Melina Live MD on 05/24/2020 3:[address] [facility] Station ID: [id number]
[2020-05-24 16:06] VITALS: BP 130/76
== END 2020-05-24 16:09 | disposition home or self-care (01) ==
LOC: ED 14:57
DX: M54.5 Low back pain (principal); G89.29 Other chronic pain; F17.200 Nicotine dependence, unspecified, uncomplicated
CPT/HCPCS: 96372; 99283

== ENCOUNTER 2020-10-07 08:00 | Outpatient (CLI) | payer MEDICAID ==
[2020-10-07 12:38] LABS: BASOPHILS # (AUTO) 0.1 10^3/uL (0.0-0.1); BASOPHILS % (AUTO) 0.9 %; EOSINOPHILS # (AUTO) 0.2 10^3/uL (0.0-0.7); EOSINOPHILS % (AUTO) 1.7 %; HCT - HEMATOCRIT 36.6 % (37.0-47.0); HGB - HEMOGLOBIN 11.4 g/dL (12.0-16.0); LYMPHOCYTES # (AUTO) 2.3 10^3/uL (1.5-3.5); LYMPHOCYTES % (AUTO) 26.6 %; MEAN CORPUSCULAR HGB CONC 31.1 g/dL (32.0-36.0); MEAN CORPUSCULAR VOLUME 83.6 fL (81.0-99.0); MEAN PLATELET VOLUME 11.4 fL (7.9-10.8); MONOCYTES # (AUTO) 0.7 10^3/uL (0.0-1.0); MONOCYTES % (AUTO) 7.8 %; NEUTROPHILS # (AUTO) 5.5 10^3/uL (1.5-6.6); NEUTROPHILS % (AUTO) 62.5 %; PLT - PLATELET COUNT 246 10^3/uL (130-450); RED BLOOD COUNT 4.38 10^6/uL (4.20-5.40); RED CELL DISTRIBUTION WIDTH 16.5 % (12.0-15.0); WHITE BLOOD COUNT 8.8 x10^3/uL (4.8-10.8)
[2020-10-07 12:45] LABS: ALBUMIN 3.5 g/dL (3.2-5.5); BILIRUBIN,TOTAL 1.1 mg/dL (0.2-1.0); CALCIUM 8.7 mg/dL (8.5-10.3); CREATININE 0.7 mg/dL (0.4-1.0); POTASSIUM 3.7 mmol/L (3.5-5.0)
[2020-10-07 12:58] LABS: ESTIMATED AVERAGE GLUCOSE 177 mg/dL (70-100); HEMOGLOBIN A1c% 7.8 % (4.27-6.07)
[2020-10-07 13:02] LABS: THYROID STIMULATING HORMONE 7.47 uIU/mL (0.34-5.60)
[2020-10-07 13:04] LABS: FREE T3 3.28 pg/mL (2.5-3.9)
[2020-10-07 13:07] LABS: FREE T4 (FREE THYROXINE) 0.73 ng/dL (0.58-1.64)
[2020-10-07 13:30] LABS: FOLLICLE STIMULATING HORMONE 10.22 mIU/mL
[2020-10-07 13:31] LABS: LUTEINIZING HORMONE 20.47 mIU/mL
== END 2020-10-07 23:59 | disposition home or self-care (01) ==
LOC: LAB.WCP 08:00
PROVIDERS: ATTEND Nurse Practitioner
DX: R53.83 Other fatigue (principal); N92.0 Excessive and frequent menstruation with regular cycle; R25.1 Tremor, unspecified
CPT/HCPCS: 36415; 80053; 83001; 83002; 83036; 84439; 84443; 84481; 85025

== ENCOUNTER 2020-10-28 10:05 | Outpatient (CLI) | payer MEDICAID ==
[2020-10-28 19:12] LABS: ALBUMIN 3.4 g/dL (3.2-5.5); ALBUMIN/GLOBULIN RATIO 1.1 (1.0-2.2); BILIRUBIN,TOTAL 0.9 mg/dL (0.2-1.0); CREATININE 0.6 mg/dL (0.4-1.0); POTASSIUM 3.8 mmol/L (3.5-5.0); TOTAL PROTEIN 6.5 g/dL (6.7-8.2)
[2020-10-28 20:39] LABS: ESTIMATED AVERAGE GLUCOSE 163 mg/dL (70-100); HEMOGLOBIN A1c% 7.3 % (4.27-6.07)
[2020-10-29 12:06] LABS: HEPATITIS B SURFACE ANTIGEN NON-REACTIVE (NON-REACTIVE); HEPATITIS C ANTIBODY NON-REACTIVE (NON-REACTIVE)
[2020-10-29 12:10] LABS: HEPATITIS A AB TOTAL(IMMUNITY) NON-REACTIVE (NON-REACTIVE); HEPATITIS B CORE AB TOTAL NON-REACTIVE (NON-REACTIVE)
== END 2020-10-28 23:59 | disposition home or self-care (01) ==
LOC: LAB.WCP 10:05
PROVIDERS: ATTEND Nurse Practitioner
DX: R53.83 Other fatigue (principal); R00.2 Palpitations
CPT/HCPCS: 36415; 80053; 83036; 86317; 86704; 86708; 86803; 87340

== ENCOUNTER 2020-12-16 19:29 | Emergency (ER) | payer MEDICAID ==
[2020-12-16 19:36] VITALS: BP 137/85
--- NOTE | 2020-12-16 20:17 | ED Physician Documentation ---
History of Present Illness - Stated complaint Stated Complaint: RIGHT HAND PX - Chief complaint Chief Complaint: Ext Problem - Additonal information Additional information: 32-year-old female presents emergency department for evaluation of 3 weeks right hand and middle finger pain. No associated trauma. No fevers no swelling. She states that the right finger sometimes feels numb and she feels that her hand is getting weak. No history of similar in the past. Review of Systems Constitutional: reports: Reviewed and negative Nose: reports: Reviewed and negative Throat: reports: Reviewed and negative Respiratory: reports: Reviewed and negative GI: reports: Reviewed and negative Musculoskeletal: reports: Extremity pain (Right hand) PD PAST MEDICAL HISTORY - Past Medical History Past Medical History: No Cardiovascular: None Respiratory: None Neuro: None Endocrine/Autoimmune: None GI: None EMERGENCY SERVICES PROFESSIONAL: None : None HEENT: None Psych: None Musculoskeletal: None Derm: None - Past Surgical History Past Surgical History: No - Present Medications Home Medications: Ambulatory Orders Medication Instructions Recorded Confirmed predniSONE [Deltasone] 40 mg PO DAILY #10 tab 05/24/20 - Allergies Allergies/Adverse Reactions: Allergies Allergy/AdvReac Type Severity Reaction Status Date / Time No Known Drug Allergies Allergy Verified 05/24/20 15:17 - Social History Does the pt smoke?: Yes Smoking Status: Current every day smoker Does the pt drink ETOH?: No Does the pt have substance abuse?: No - Immunizations Immunizations are current?: Yes - POLST Patient has POLST: No PD ED PE EXPANDED - General General: Alert, No acute distress - Extremities Extremities: Right hand (Tenderness with palpation of the right middle finger between MCP and PIP joint. No swelling or erythema. No deformity noted. 2+ radial pulse. Brisk cap refill. Positive Phalen's exam right hand.) Results - Vitals Vitals: Vital Signs - 24 hr 12/16/20 19:34 Temperature 36.2 C L Heart Rate 65 Respiratory 16 Rate Blood Pressure 137/85 H O2 Saturation 98 Oxygen O2 Source Room air - Rads (name of study) right hand xr Radiology: Final report received (No acute fracture or dislocation.) PD MEDICAL DECISION MAKING - ED course Complexity details: reviewed results, d/w patient ED course: 40-year-old female presents emergency department for evaluation of 3 weeks right middle finger pain with some associated numbness and tingling. X-ray is unremarkable. No findings suggest infection. She did have a positive Phalen's exam. I suspect she has mild early carpal tunnel. Patient was given a wrist splint. Encourage Motrin and Tylenol. Follow-up with PCP may benefit from referral to a hand therapist. Departure - Departure Disposition: 01 Home, Self Care Clinical Impression: Pain of right middle finger Condition: Stable Record reviewed to determine appropriate education?: Yes Instructions: ED Carpal Tunnel Comments: Hallie the x-ray of your hand is fairly normal. However one of the test that we did at the bedside is called the Phalen's test and it is a test to determine if the nerves that run through your wrist are inflamed. This can be very painful. I suspect that you may be developing early carpal tunnel syndrome. I would like you to wear the wrist splint provided at all times with the exception of showering. Please follow-up with your primary care provider. You may benefit from referral to a hand therapist. It is okay to take ibuprofen or Tylenol for discomfort.
--- NOTE | 2020-12-16 20:30 | XRAY Report ---
PROCEDURE: Hand 2 View RT INDICATIONS: middle finger pain TECHNIQUE: 2 views of the hand(s) acquired. COMPARISON: None FINDINGS: Bones: No fractures or dislocations. No suspicious bony lesions. Soft tissues: No suspicious soft tissue calcifications. IMPRESSION: No fracture. No osseous lesion. If there are persistent symptoms or continued clinical concern for pa thology, then repeat plain film radiographs (7-10 days) or advanced imaging (CT, MR, bone scan) shoul d be considered for further evaluation. Reviewed by: Lorrie Serna MD, PhD on 12/16/2020 8:28 PM PDT Approved by: Lorrie Serna MD, PhD on 12/16/2020 8:28 PM PDT Station ID: [id number]
== END 2020-12-16 20:30 | disposition home or self-care (01) ==
LOC: ED 19:29
DX: M79.644 Pain in right finger(s) (principal); M79.641 Pain in right hand; R20.0 Anesthesia of skin; F17.200 Nicotine dependence, unspecified, uncomplicated
CPT/HCPCS: 99283

== ENCOUNTER 2021-02-01 08:00 | Outpatient (CLI) | payer MEDICAID ==
[2021-02-01 18:27] LABS: BASOPHILS # (AUTO) 0.1 10^3/uL (0.0-0.1); BASOPHILS % (AUTO) 0.7 %; EOSINOPHILS # (AUTO) 0.1 10^3/uL (0.0-0.7); EOSINOPHILS % (AUTO) 1.3 %; HCT - HEMATOCRIT 34.9 % (37.0-47.0); HGB - HEMOGLOBIN 10.5 g/dL (12.0-16.0); LYMPHOCYTES % (AUTO) 36.8 %; MEAN CORPUSCULAR HEMOGLOBIN 24.8 pg (27.0-31.0); MEAN CORPUSCULAR HGB CONC 30.1 g/dL (32.0-36.0); MEAN CORPUSCULAR VOLUME 82.3 fL (81.0-99.0); MEAN PLATELET VOLUME 11.6 fL (7.9-10.8); MONOCYTES # (AUTO) 0.7 10^3/uL (0.0-1.0); MONOCYTES % (AUTO) 8.4 %; NEUTROPHILS # (AUTO) 4.3 10^3/uL (1.5-6.6); NEUTROPHILS % (AUTO) 52.4 %; PLT - PLATELET COUNT 311 10^3/uL (130-450); RED BLOOD COUNT 4.24 10^6/uL (4.20-5.40); RED CELL DISTRIBUTION WIDTH 16.2 % (12.0-15.0); WHITE BLOOD COUNT 8.3 x10^3/uL (4.8-10.8)
[2021-02-01 18:47] LABS: ALBUMIN 3.7 g/dL (3.2-5.5); ALBUMIN/GLOBULIN RATIO 1.1 (1.0-2.2); BILIRUBIN,TOTAL 0.6 mg/dL (0.2-1.0); CALCIUM 9.2 mg/dL (8.5-10.3); CREATININE 0.9 mg/dL (0.4-1.0); POTASSIUM 3.3 mmol/L (3.5-5.0); TOTAL PROTEIN 7.1 g/dL (6.7-8.2)
[2021-02-01 18:58] LABS: THYROID STIMULATING HORMONE 4.73 uIU/mL (0.34-5.60)
[2021-02-01 19:00] LABS: FREE T4 (FREE THYROXINE) 0.93 ng/dL (0.58-1.64)
[2021-02-01 21:17] LABS: ESTIMATED AVERAGE GLUCOSE 114 mg/dL (70-100); HEMOGLOBIN A1c% 5.6 % (4.27-6.07)
== END 2021-02-01 23:59 | disposition home or self-care (01) ==
LOC: LAB.WCP 08:00
PROVIDERS: ATTEND Nurse Practitioner
DX: E11.8 Type 2 diabetes mellitus with unspecified complications (principal); R74.8 Abnormal levels of other serum enzymes; E07.9 Disorder of thyroid, unspecified
CPT/HCPCS: 36415; 80053; 83036; 84439; 84443; 85025

== ENCOUNTER 2021-02-16 11:25 | Outpatient (CLI) | payer MEDICAID | END 2021-02-16 11:26 | disposition EMS.NT | LOC: EMS 11:25 | DX: R45.89 Other symptoms and signs involving emotional state (principal); M54.2 Cervicalgia; Y04.8XXA Assault by other bodily force, initial encounter; Y92.512 Supermarket, store or market as the place of occurrence of the external cause; Y99.0 Civilian activity done for income or pay ==

== ENCOUNTER 2021-02-16 13:18 | Emergency (ER) | payer OTHER, MEDICAID ==
[2021-02-16 13:31] VITALS: BP 141/76
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
[2021-02-16] MEDS ORDERED: KETOROLAC 60 MG/2 ML VIAL IM STA (13:48)
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
== END 2021-02-16 15:18 | disposition home or self-care (01) ==
LOC: ED 13:18
DX: M25.512 Pain in left shoulder (principal); M25.562 Pain in left knee; Y09 Assault by unspecified means; Y99.0 Civilian activity done for income or pay; E11.9 Type 2 diabetes mellitus without complications; I10 Essential (primary) hypertension; F17.200 Nicotine dependence, unspecified, uncomplicated
CPT/HCPCS: 96372; 99282; 99283

== ENCOUNTER 2021-03-26 15:16 | Emergency (ER) | payer MEDICAID ==
[2021-03-26 15:23] VITALS: BP 149/108
[2021-03-26] MEDS ORDERED: IBUPROFEN 600 MG TABLET PO STA (15:39)
[2021-03-26] MEDS ORDERED: HYDROcod/ACETAM 5/325 MG TABLET PO STA (15:39)
--- NOTE | 2021-03-26 15:41 | ED Physician Documentation ---
History of Present Illness - Stated complaint Stated Complaint: FEVER/BODY ACHES - Chief complaint Chief Complaint: General - History obtained from History obtained from: Patient - Additonal information Additional information: 40-year-old woman with type 2 diabetes was vaccinated against COVID with [employer] early after release of that vaccine, no booster. She saw her sister last Saturday, 4 days ago. Her sister subsequently tested positive for COVID. She has been sick now for 2 days with headache, body aches, cough, fevers. Also lost of taste and smell. Review of Systems Constitutional: reports: Fever, Chills, Myalgias Ears: denies: Ear pain Nose: reports: Rhinorrhea / runny nose Throat: denies: Sore throat Respiratory: denies: Dyspnea PD PAST MEDICAL HISTORY - Past Medical History Cardiovascular: None Respiratory: None Neuro: None Endocrine/Autoimmune: None GI: None HOT MAN: None : None HEENT: None Psych: None Musculoskeletal: None Derm: None - Past Surgical History Past Surgical History: No - Present Medications Home Medications: Ambulatory Orders Medication Instructions Recorded Confirmed Guaifenesin/Pseudoephedrne HCl 1 each PO BID PRN #20 ea 03/26/21 [Mucinex D ER 600-60 mg Tablet] HYDROcod/ACETAM 5/325 [Eccles 5/325] 1 - 2 tab PO Q6H PRN #15 tablet 03/26/21 Ibuprofen [Motrin] 800 mg PO Q8H PRN #20 tablet 03/26/21 metFORMIN [Glucophage] 1,000 mg PO DAILY 03/26/21 03/26/21 - Allergies Allergies/Adverse Reactions: Allergies Allergy/AdvReac Type Severity Reaction Status Date / Time No Known Drug Allergies Allergy Verified 03/26/21 15:20 - Social History Does the pt smoke?: Yes Smoking Status: Current every day smoker Does the pt drink ETOH?: No Does the pt have substance abuse?: No - Immunizations Immunizations are current?: Yes - POLST Patient has POLST: No PD ED PE NORMAL - Vitals Vital signs reviewed: Yes - General General: Alert and oriented X 3, No acute distress - HEENT HEENT: Pharynx benign - Cardiac Cardiac: RRR, No murmur - Respiratory Respiratory: No respiratory distress, Clear bilaterally - Abdomen Abdomen: Non tender - Back Back: No CVA TTP, No spinal TTP - Derm Derm: Normal color, Warm and dry - Extremities Extremities: No edema, No calf tenderness / cord - Neuro Neuro: Alert and oriented X 3, Normal speech Results - Vitals Vitals: Vital Signs - 24 hr 03/26/21 15:20 Temperature 37.8 C Heart Rate 126 H Respiratory 22 Rate Blood Pressure 149/108 H O2 Saturation 100 Oxygen O2 Source Room air PD MEDICAL DECISION MAKING - ED course ED course: Symptoms consistent with viral syndrome, likely COVID given her exposure and current pandemic. No effective antibody therapy at this point and paxlovid not available yet so conservative management advised. Departure - Departure Disposition: Home, Self Care Clinical Impression: Viral syndrome Condition: Good Record reviewed to determine appropriate education?: Yes Instructions: ED Viral Syndrome Prescriptions: Ibuprofen [Motrin] 800 mg PO Q8H PRN #20 tablet PRN Reason: PAIN &/OR FEVER Guaifenesin/Pseudoephedrne HCl [Mucinex D ER 600-60 mg Tablet] 1 each PO BID PRN #20 ea PRN Reason: congestion HYDROcod/ACETAM 5/325 [Eccles 5/325] 1 - 2 tab PO Q6H PRN #15 tablet PRN Reason: Pain Comments: Prescription sent electronically to [facility] in [place] You have a Covid test pending. You need to self quarantine until the result is done and negative. Do not leave your house. Do not get near anybody. The results should be done in 48 to 72 hours. We will call with a positive result, the fastest way to get a negative result for confirmation though is to go to the hospital website at [email or web address], click on the my [facility] tab and sign up for the patient portal. If any friends or family get sick and would like to have a Covid test done, but do not have signs or symptoms that would necessitate being hospitalized, there are multiple local options for Covid testing. [facility] keeps an updated list of testing and vaccination options at: [email or web address]. I am prescribing a short course of narcotic pain medication for you. These are potentially dangerous and addictive medications that should be used carefully. These medications may constipate you. Take an [id number]-akhyjin stool softener (docusate) twice daily with plenty of water while taking these medications. If you go 24 hours without a bowel movement, take [id number] miralax, per package instructions. Do not drink or drive while taking these medications. If you received narcotic or sedating medications while in the emergency department, do not drive for 24 hours. Store this medication in a safe, secure place and out of reach of children. It is a violation of federal law to give or sell this medication to another person or to use in a manner other than prescribed. The ED will not refill narcotic prescriptions, including prescriptions lost or stolen. To dispose of unwanted medications: 1. [facility] at [address] in [place] has a medication drop box. They accept prescription medications (in pill form) Saturday through Saturday 9:00 a.m. to 5:00 p.m. 2. The [facility] accepts prescription medications (in pill form only) for disposal year round. Call for more information. 3. Contact the [facility] for the next [facility] sponsored prescription drug collection event. , [phone], or [phone]; Note that many narcotic pain relievers also contain Tylenol/acetaminophen. Please ensure that your total dose of acetaminophen from all sources does not exceed 3 g (3000 mg) per day. Forms: Activity restrictions
== END 2021-03-26 16:14 | disposition home or self-care (01) ==
LOC: ED 15:16
DX: U07.1 COVID-19 (principal); F17.200 Nicotine dependence, unspecified, uncomplicated
CPT/HCPCS: 87635; 99283; A9270

== ENCOUNTER 2021-03-28 08:00 | Outpatient (CLI) | payer MEDICAID ==
--- NOTE | 2021-03-29 08:46 | XRAY Report ---
PROCEDURE: Chest 2 View X-Ray INDICATIONS: ACUTE COVID-19 TECHNIQUE: 2 view(s) of the chest. COMPARISON: June 09, 2018 FINDINGS: SUPPORT DEVICES: None. LUNGS/PLEURA: No focal consolidation, pleural effusion or space-occupying pneumothorax. MEDIASTINUM: The cardiomediastinal silhouette is within normal limits. BONES/SOFT TISSUES: No acute abnormality. IMPRESSION: 1.No acute cardiopulmonary abnormality. Reviewed by: Carroll Zamora MD on 03/29/2021 8:45 AM [facility] Approved by: Carroll Zamora MD on 03/29/2021 8:45 AM [facility] Station ID: [id number]
== END 2021-03-28 23:59 ==
LOC: DI.N 08:00
PROVIDERS: ATTEND Nurse Practitioner
DX: U07.1 COVID-19 (principal)

== ENCOUNTER 2021-06-29 10:31 | Outpatient (CLI) | payer MEDICAID ==
[2021-06-29 11:49] LABS: BASOPHILS # (AUTO) 0.1 10^3/uL (0.0-0.1); BASOPHILS % (AUTO) 0.8 %; EOSINOPHILS # (AUTO) 0.1 10^3/uL (0.0-0.7); EOSINOPHILS % (AUTO) 1.5 %; HGB - HEMOGLOBIN 9.6 g/dL (12.0-16.0); LYMPHOCYTES # (AUTO) 1.9 10^3/uL (1.5-3.5); LYMPHOCYTES % (AUTO) 26.4 %; MEAN CORPUSCULAR HEMOGLOBIN 21.7 pg (27.0-31.0); MEAN CORPUSCULAR HGB CONC 29.1 g/dL (32.0-36.0); MEAN CORPUSCULAR VOLUME 74.5 fL (81.0-99.0); MEAN PLATELET VOLUME 10.9 fL (7.9-10.8); MONOCYTES # (AUTO) 0.6 10^3/uL (0.0-1.0); MONOCYTES % (AUTO) 8.1 %; NEUTROPHILS # (AUTO) 4.5 10^3/uL (1.5-6.6); NEUTROPHILS % (AUTO) 62.9 %; PLT - PLATELET COUNT 307 10^3/uL (130-450); RED BLOOD COUNT 4.43 10^6/uL (4.20-5.40); RED CELL DISTRIBUTION WIDTH 16.5 % (12.0-15.0); WHITE BLOOD COUNT 7.2 x10^3/uL (4.8-10.8)
[2021-06-29 12:02] LABS: BILIRUBIN,URINE NEGATIVE (NEGATIVE); GLUCOSE, URINE (UA) NEGATIVE (NEGATIVE); KETONES,URINE (UA) NEGATIVE (NEGATIVE); LEUKOCYTE ESTERASE, URINE NEGATIVE (NEGATIVE); NITRITE,URINE NEGATIVE (NEGATIVE); OCCULT BLOOD,URINE MODERATE (NEGATIVE); PROTEIN,URINE 100 mg/dL (NEGATIVE); UROBILINOGEN,URINE 0.2 (NORMAL) E.U./dL (NORMAL)
[2021-06-29 12:10] LABS: ALBUMIN 3.6 g/dL (3.2-5.5); BILIRUBIN,TOTAL 0.7 mg/dL (0.2-1.0); CALCIUM 8.9 mg/dL (8.5-10.3); CREATININE 0.5 mg/dL (0.4-1.0); POTASSIUM 3.8 mmol/L (3.5-5.0); TOTAL PROTEIN 7.1 g/dL (6.7-8.2)
[2021-06-29 12:12] LABS: BACTERIA,URINE Few /HPF (None Seen); CLARITY,URINE CLEAR (CLEAR); SQUAMOUS EPITHELIAL CELL,UR FEW Squamous (<= Few); WBC,URINE 0-3 /HPF (0-5)
== END 2021-06-29 10:32 | disposition home or self-care (01) ==
LOC: LAB.N 10:31
PROVIDERS: ATTEND Nurse Practitioner
DX: N94.6 Dysmenorrhea, unspecified (principal); E11.8 Type 2 diabetes mellitus with unspecified complications; N92.0 Excessive and frequent menstruation with regular cycle; R35.89 Other polyuria
CPT/HCPCS: 36415; 80053; 81001; 81599; 82728; 83036; 83540; 84466; 85025; 87086

== ENCOUNTER 2021-07-14 15:50 | Outpatient (CLI) | payer MEDICAID ==
--- NOTE | 2021-07-14 21:00 | Ultrasound Report ---
PROCEDURE: Retroperitoneal INDICATIONS: POLYURIA, FLANK PAIN TECHNIQUE: Real-time scanning was performed of the retroperitoneal organs, with image documentation. COMPARISON: None. FINDINGS: Kidneys: Kidneys are normal in size. Right kidney measures 10.4 cm long; left kidney measures 11.9 cm long. Right renal cortical thickness is 1.8 cm; left renal cortical thickness is 1.9 cm. There is mild right hydronephrosis. No renal calcifications are identified. Simple left renal cyst is present measuring 14 x 13 x 12 mm. Pancreas: Visualized portions of the pancreas are sonographically normal . Bladder: Pre-void bladder volume is 316 mL. Post-void residual is 11 mL. Pre-void images demonstra te no intraluminal masses or stones. On pre-void images, bilateral ureteral jets are noted with colo r Doppler interrogation. (Of note, ureteral jets may not be detectable in up to 25% of cases due to insufficient differences in specific gravity between ureteral and bladder urine). Miscellaneous: No free abdominal fluid. IMPRESSION: Mild right hydronephrosis. No visualized stone. However, if concern persists, CT is recommended. Reviewed by: Maggie Mclain MD on 07/14/2021 8:59 PM PDT Approved by: Maggie Mclain MD on 07/14/2021 8:59 PM PDT Station ID: [id number]
== END 2021-07-14 15:51 | disposition home or self-care (01) ==
LOC: DI 15:50
PROVIDERS: ATTEND Nurse Practitioner
DX: N13.30 Unspecified hydronephrosis (principal)

== ENCOUNTER 2021-10-08 09:45 | Outpatient (CLI) | payer MEDICAID ==
--- NOTE | 2021-10-08 12:49 | CT Report ---
PROCEDURE: Abdomen/Pelvis WO INDICATIONS: HYDRONEPHROSIS TECHNIQUE: Noncontrast 5 mm thick sections acquired from the diaphragms to the symphysis. 5 mm coronal and sagi ttal reformats were then performed. For radiation dose reduction, the following was used: automated exposure control, adjustment of mA and/or kV according to patient size. COMPARISON: 09/08/2019 Correlation is made with prior retroperitoneal ultrasound, 07/14/2021. FINDINGS: Image quality: Excellent. ABDOMEN: Lung bases: Lung bases are clear. Heart size is normal. Solid organs: Liver and spleen are normal in size. Gallbladder wall does not appear thickened. P ancreas is normal in contours. No adrenal nodules. Kidneys are normal in size, without hydronephros is or nephrolithiasis. There is an 11 mm water density cyst exophytic from the posterior lateral asp ect of the left kidney. Peritoneum and bowel: Unenhanced bowel loops demonstrate normal wall thickness and caliber. No free fluid or air. A normal appendix is incidentally noted. Nodes and vessels: No retroperitoneal or mesenteric adenopathy by size criteria. Aorta and inferior vena cava are normal in caliber. Miscellaneous: No ventral hernias. PELVIS: Genitourinary: Bladder wall thickness is normal. The uterus demonstrates an unremarkable appearance for age. No adnexal masses are seen. Miscellaneous: No inguinal hernias or adenopathy. Bones: No suspicious bony lesions. No vertebral body compression fractures. IMPRESSION: No hydronephrosis is now seen. No stones are seen. Incidental note is made of: Simple appearing exophytic left renal cyst Normal appendix Reviewed by: Artie Song MD on 10/08/2021 11:47 AM [facility] Approved by: Artie Song MD on 10/08/2021 11:47 AM [facility] Station ID: [id number]
== END 2021-10-08 09:46 | disposition home or self-care (01) ==
LOC: DI 09:45
PROVIDERS: ATTEND Nurse Practitioner
DX: N13.30 Unspecified hydronephrosis (principal)

== ENCOUNTER 2021-10-10 08:00 | Outpatient (CLI) | payer MEDICAID ==
[2021-10-10 20:43] LABS: BASOPHILS # (AUTO) 0.1 10^3/uL (0.0-0.1); BASOPHILS % (AUTO) 0.8 %; EOSINOPHILS # (AUTO) 0.1 10^3/uL (0.0-0.7); EOSINOPHILS % (AUTO) 1.5 %; HCT - HEMATOCRIT 27.1 % (37.0-47.0); HGB - HEMOGLOBIN 7.7 g/dL (12.0-16.0); LYMPHOCYTES # (AUTO) 2.7 10^3/uL (1.5-3.5); LYMPHOCYTES % (AUTO) 36.2 %; MEAN CORPUSCULAR HEMOGLOBIN 19.6 pg (27.0-31.0); MEAN CORPUSCULAR HGB CONC 28.4 g/dL (32.0-36.0); MEAN CORPUSCULAR VOLUME 69.1 fL (81.0-99.0); MEAN PLATELET VOLUME 10.8 fL (7.9-10.8); MONOCYTES # (AUTO) 0.7 10^3/uL (0.0-1.0); NEUTROPHILS # (AUTO) 3.9 10^3/uL (1.5-6.6); NEUTROPHILS % (AUTO) 52.4 %; PLT - PLATELET COUNT 319 10^3/uL (130-450); RED BLOOD COUNT 3.92 10^6/uL (4.20-5.40); RED CELL DISTRIBUTION WIDTH 18.5 % (12.0-15.0); WHITE BLOOD COUNT 7.4 x10^3/uL (4.8-10.8)
[2021-10-10 20:56] LABS: ALBUMIN 3.6 g/dL (3.2-5.5); ALBUMIN/GLOBULIN RATIO 1.1 (1.0-2.2); BILIRUBIN,TOTAL 0.4 mg/dL (0.2-1.0); CALCIUM 9.1 mg/dL (8.5-10.3); CREATININE 0.6 mg/dL (0.4-1.0); POTASSIUM 3.7 mmol/L (3.5-5.0); TOTAL PROTEIN 6.9 g/dL (6.7-8.2)
[2021-10-10 21:08] LABS: PLATELET ESTIMATE, MANUAL NORMAL (130-450,000) (NORMAL); PLATELET MORPHOLOGY NORMAL APPEARANCE (NORMAL); SLIDE REVIEW? Indicated
== END 2021-10-10 23:59 | disposition home or self-care (01) ==
LOC: LAB.N 08:00
PROVIDERS: ATTEND Nurse Practitioner
DX: D64.9 Anemia, unspecified (principal)
CPT/HCPCS: 36415; 80053; 85025

== ENCOUNTER 2021-10-11 18:51 | Emergency (ER) | payer MEDICAID ==
[2021-10-11 19:05] VITALS: BP 134/97
[2021-10-11 19:18] LABS: BASOPHILS # (AUTO) 0.1 10^3/uL (0.0-0.1); BASOPHILS % (AUTO) 0.7 %; EOSINOPHILS # (AUTO) 0.2 10^3/uL (0.0-0.7); EOSINOPHILS % (AUTO) 1.6 %; HCT - HEMATOCRIT 27.4 % (37.0-47.0); LYMPHOCYTES # (AUTO) 2.7 10^3/uL (1.5-3.5); LYMPHOCYTES % (AUTO) 29.1 %; MEAN CORPUSCULAR HEMOGLOBIN 20.2 pg (27.0-31.0); MEAN CORPUSCULAR HGB CONC 29.2 g/dL (32.0-36.0); MEAN CORPUSCULAR VOLUME 69.2 fL (81.0-99.0); MEAN PLATELET VOLUME 9.8 fL (7.9-10.8); MONOCYTES # (AUTO) 0.8 10^3/uL (0.0-1.0); MONOCYTES % (AUTO) 9.1 %; NEUTROPHILS # (AUTO) 5.4 10^3/uL (1.5-6.6); NEUTROPHILS % (AUTO) 59.2 %; PLT - PLATELET COUNT 313 10^3/uL (130-450); RED BLOOD COUNT 3.96 10^6/uL (4.20-5.40); RED CELL DISTRIBUTION WIDTH 18.1 % (12.0-15.0); WHITE BLOOD COUNT 9.1 x10^3/uL (4.8-10.8)
[2021-10-11 19:33] LABS: ALBUMIN 3.6 g/dL (3.2-5.5); ALBUMIN/GLOBULIN RATIO 1.1 (1.0-2.2); BILIRUBIN,TOTAL 0.4 mg/dL (0.2-1.0); CALCIUM 9.1 mg/dL (8.5-10.3); CREATININE 0.7 mg/dL (0.4-1.0); POTASSIUM 3.2 mmol/L (3.5-5.0); TOTAL PROTEIN 6.8 g/dL (6.7-8.2)
[2021-10-11 20:10] LABS: SLIDE REVIEW? Indicated
[2021-10-11 20:11] LABS: PLATELET ESTIMATE, MANUAL NORMAL (130-450,000) (NORMAL); PLATELET MORPHOLOGY NORMAL APPEARANCE (NORMAL); WBC MORPHOLOGY (MULTIPLE) NORMAL APPEARANCE (NORMAL)
== END 2021-10-11 21:19 | disposition left against medical advice (07) ==
LOC: ED 18:51
DX: Z53.21 Procedure and treatment not carried out due to patient leaving prior to being seen by health care provider (principal)
CPT/HCPCS: 36415; 80053; 83690; 85025; 86850; 86900; 86901

== ENCOUNTER 2021-11-14 08:00 | Outpatient (CLI) | payer MEDICAID ==
[2021-11-14 18:07] LABS: BILIRUBIN,URINE NEGATIVE (NEGATIVE); GLUCOSE, URINE (UA) NEGATIVE (NEGATIVE); KETONES,URINE (UA) NEGATIVE (NEGATIVE); LEUKOCYTE ESTERASE, URINE TRACE (NEGATIVE); NITRITE,URINE NEGATIVE (NEGATIVE); OCCULT BLOOD,URINE LARGE (NEGATIVE); PROTEIN,URINE 30 mg/dL (NEGATIVE); UROBILINOGEN,URINE 0.2 (NORMAL) E.U./dL (NORMAL)
[2021-11-14 18:23] LABS: CLARITY,URINE HAZY (CLEAR); SQUAMOUS EPITHELIAL CELL,UR FEW Squamous (<= Few)
[2021-11-14 18:24] LABS: BACTERIA,URINE Moderate /HPF (None Seen)
== END 2021-11-14 23:59 | disposition home or self-care (01) ==
LOC: LAB.N 08:00
PROVIDERS: ATTEND Nurse Practitioner
DX: R35.89 Other polyuria (principal)
CPT/HCPCS: 81001; 87086; 87181

== ENCOUNTER 2021-11-15 14:26 | Outpatient (CLI) | payer MEDICAID | END 2021-11-15 14:27 | disposition home or self-care (01) | LOC: MAC.MOP 14:26 | PROVIDERS: ATTEND Nurse Practitioner | DX: R00.2 Palpitations (principal) | CPT/HCPCS: 93246 ==

== ENCOUNTER 2021-11-15 14:53 | Emergency (ER) | payer MEDICAID ==
--- NOTE | 2021-11-15 15:06 | ED Physician Documentation ---
PD HPI FEMALE - Stated complaint Stated Complaint: FEMALE /BLEEDING - Chief complaint Chief Complaint: Abd Pain - History obtained from History obtained from: Patient - History of Present Illness Timing - onset: How many days ago (5) Timing - duration: Days (5) Timing - details: Gradual onset (Initially so mild vaginal bleeding and clots and cramping. This increased significantly in the last 2 to 3 days and now has large clots about handful sized with lightheadedness and frequent need to change pads every couple of hours.), Still present Associated symptoms: Vaginal bleeding, Dysuria, Urinary frequency. No: Fever, Vaginal discharge, Genital sore/lesion Contributing factors: Other (had intercourse 6 days ago, the day prior to onset of vaginal bleeding.). No: , Exposed to STD Similar symptoms before: Has not had sx before Recently seen: Clinic (Seen 2 weeks ago with uterine biopsies due to heavy periods and regular frequent periods. Results are pending. Was doing okay after the biopsy for the ensuing week. Cramps bleeding and increase bleeding as noted above in the last 5 days.) Review of Systems Constitutional: denies: Fever, Chills Nose: denies: Rhinorrhea / runny nose, Congestion Throat: denies: Sore throat Respiratory: denies: Cough GI: reports: Abdominal Pain (lower abd cramping severe intermittent.), Nausea : reports: Dysuria (for 2 days), Frequency, Vaginal bleeding. denies: Discharge Neurologic: reports: Generalized weakness. 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 Menses type bleeding heavy and about every 2-3 weeks. ) : None HEENT: None Psych: None Musculoskeletal: None Derm: None (iron deficiency anemia) - Past Surgical History Past Surgical History: No - Present Medications Home Medications: Ambulatory Orders Medication Instructions Recorded Confirmed metFORMIN [Glucophage] 1,000 mg PO DAILY 03/26/21 11/15/21 Ferrous Sulfate 325 mg PO DAILY 10/24/21 11/15/21 Ibuprofen [Motrin] 1 tablet PO Q8H PRN #30 tablet 11/15/21 Tranexamic Acid 650 mg PO TID 7 Days #20 tablet 11/15/21 cephALEXin [Keflex] 500 mg PO TID #20 cap 11/15/21 - Allergies Allergies/Adverse Reactions: Allergies Allergy/AdvReac Type Severity Reaction Status Date / Time No Known Drug Allergies Allergy Verified 11/15/21 15:02 - Social History Does the pt smoke?: Yes Smoking Status: Unknown if ever smoked Does the pt drink ETOH?: Yes Does the pt have substance abuse?: No - Immunizations Immunizations are current?: Yes - POLST Patient has POLST: No PD ED PE NORMAL - Vitals Vital signs reviewed: Yes - General General: Alert and oriented X 3, No acute distress, Well developed/nourished - Cardiac Cardiac: RRR - Respiratory Respiratory: Clear bilaterally - Abdomen Abdomen: Normal bowel sounds, Soft, Non tender, Non distended - Female Female : Vision Mixer present, Other (The introitus appears normal. The vaginal rowan are without any redness irritation or signs of injury or bleeding. The cervical os appears swollen at the opening with a somewhat enlarged opening. There is some rawness with speckled bleeding near the cervical os. Endocervical bleeding is noted.) - Rectal Rectal: Deferred - Back Back: No CVA TTP - Derm Derm: Normal color, Warm and dry - Neuro Neuro: Alert and oriented X 3, No motor deficit, Normal speech Results - Vitals Vitals: Vital Signs - 24 hr 11/15/21 11/15/21 14:57 19:30 Temperature 36.1 C L Heart Rate 97 98 Respiratory 16 14 Rate Blood Pressure 118/81 H 118/84 H O2 Saturation 100 100 Oxygen O2 Source Room air - Labs Labs: Microbiology 11/15/21 16:57 Urine Culture - Preliminary Urine,Random Escherichia Coli Laboratory Tests 11/15/21 11/15/21 11/15/21 15:57 15:57 15:57 WBC 6.2 RBC 4.00 L Hgb 9.7 L Hct 32.3 L MCV 80.8 L MCH 24.3 L MCHC 30.0 L RDW 27.8 H Plt Count 289 MPV 10.3 Neut # (Auto) 3.6 Lymph # (Auto) 2.0 [place] # (Auto) 0.5 Eos # (Auto) 0.1 Baso # (Auto) 0.0 Absolute Nucleated RBC 0.00 Nucleated RBC % 0.0 Manual Slide Review Indicated WBC Morphology NORMAL APPEARANCE Platelet Estimate NORMAL (130-450,000) Platelet Morphology NORMAL APPEARANCE RBC Morph Micro Appear 1+ HYPOCHROMASIA Sodium 138 Potassium 3.8 Chloride 106 Carbon Dioxide 26 Anion Gap 6.0 BUN 12 Creatinine 0.6 Estimated GFR (MDRD) 111 Glucose 99 Calcium 9.2 Total Bilirubin < 0.2 L AST 17 ALT 13 Alkaline Phosphatase 48 Total Protein 6.5 L Albumin 3.6 Globulin 2.9 Albumin/Globulin Ratio 1.2 Lipase 36 Urine Color Urine Clarity Urine pH Ur Specific [place] Urine Protein Urine Glucose (UA) Urine Ketones Urine Occult Blood Urine Nitrite Urine Bilirubin Urine Urobilinogen Ur Leukocyte Esterase Urine RBC Urine WBC Ur Squamous Epith Cells Urine Bacteria Ur Microscopic Review Urine Culture Comments Blood Type O POSITIVE Antibody Screen NEGATIVE 11/15/21 16:57 WBC RBC Hgb Hct MCV MCH MCHC RDW Plt Count MPV Neut # (Auto) Lymph # (Auto) [place] # (Auto) Eos # (Auto) Baso # (Auto) Absolute Nucleated RBC Nucleated RBC % Manual Slide Review WBC Morphology Platelet Estimate Platelet Morphology RBC Morph Micro Appear Sodium Potassium Chloride Carbon Dioxide Anion Gap BUN Creatinine Estimated GFR (MDRD) Glucose Calcium Total Bilirubin AST ALT Alkaline Phosphatase Total Protein Albumin Globulin Albumin/Globulin Ratio Lipase Urine Color YELLOW Urine Clarity HAZY Urine pH 6.5 Ur Specific [place] >=1.030 H Urine Protein 100 H Urine Glucose (UA) NEGATIVE Urine Ketones NEGATIVE Urine Occult Blood LARGE H Urine Nitrite POSITIVE H Urine Bilirubin NEGATIVE Urine Urobilinogen 0.2 (NORMAL) Ur Leukocyte Esterase NEGATIVE Urine RBC 6-10 H Urine WBC 6-10 H Ur Squamous Epith Cells RARE Squamous Urine Bacteria Many H Ur Microscopic Review INDICATED Urine Culture Comments INDICATED Blood Type Antibody Screen - Rads (name of study) pelvic U/S Radiology: Prelim report reviewed (some nabothian cysts. Normal uterine wall. Ovaries appear normal. ), See rad report PD MEDICAL DECISION MAKING - ED course Complexity details: reviewed results (Hgb is similar to recent one with apparent iron def anemia. Had gotten iron infusion recently, so this is likely helping her compensate for blood loss. Will want to check CBC again in couple days though, given rate of vag bleeding. Dr. Lugo will be seeing pt in office in couple days. ), considered differential, d/w patient, d/w freight traffic consultant (Dr. Lugo - asked him to come see patient.) Departure - Departure Disposition: 01 Home, Self Care Clinical Impression: Uterine bleeding, dysfunctional, Status post biopsy of uterine cervix UTI (urinary tract infection) Qualifiers: Urinary tract infection type: acute cystitis Hematuria presence: without hematuria Qualified Code(s): N30.00 - Acute cystitis without hematuria Condition: Stable Record reviewed to determine appropriate education?: Yes Instructions: ED Bleed Irregular Vaginal, ED UTI Cystitis Female Prescriptions: cephALEXin [Keflex] 500 mg PO TID #20 cap Ibuprofen [Motrin] 1 tablet PO Q8H PRN #30 tablet PRN Reason: PAIN &/OR FEVER Tranexamic Acid 650 mg PO TID 7 Days #20 tablet Comments: Stay well-hydrated. You can use ibuprofen 800 mg 3 times daily for cramps and pains. Dr. Lugo did have administered for you dose of a hormone called Depo-Provera which will try to decrease the bleeding over the next several days to week or so. In the meantime we will try to decrease the bleeding usually well with a clot promoting medicine called tranexamic acid. This is in tablet version and is taken 3 times daily. I wrote a week supply. You do have a bladder infection as well. I wrote a prescription for cephalexin 3 times daily for a week for that. I transmitted your prescriptions to [facility] pharmacy. Return to the ER if continued significant bleeding that is worrisome to you and associated any lightheadedness general weakness etc. Your blood count today is actually similar to your last blood count so it has not really dropped in relation to the current bleeding. Discharge Date/Time: 11/15/21 19:30
[2021-11-15 16:04] LABS: BASOPHILS % (AUTO) 0.6 %; EOSINOPHILS # (AUTO) 0.1 10^3/uL (0.0-0.7); EOSINOPHILS % (AUTO) 1.6 %; HCT - HEMATOCRIT 32.3 % (37.0-47.0); HGB - HEMOGLOBIN 9.7 g/dL (12.0-16.0); LYMPHOCYTES % (AUTO) 31.8 %; MEAN CORPUSCULAR HEMOGLOBIN 24.3 pg (27.0-31.0); MEAN CORPUSCULAR VOLUME 80.8 fL (81.0-99.0); MEAN PLATELET VOLUME 10.3 fL (7.9-10.8); MONOCYTES # (AUTO) 0.5 10^3/uL (0.0-1.0); MONOCYTES % (AUTO) 7.7 %; NEUTROPHILS # (AUTO) 3.6 10^3/uL (1.5-6.6); PLT - PLATELET COUNT 289 10^3/uL (130-450); RED CELL DISTRIBUTION WIDTH 27.8 % (12.0-15.0); WHITE BLOOD COUNT 6.2 x10^3/uL (4.8-10.8)
[2021-11-15 16:18] LABS: ALBUMIN 3.6 g/dL (3.2-5.5); ALBUMIN/GLOBULIN RATIO 1.2 (1.0-2.2); ALKALINE PHOSPHATASE 48 IU/L (42-121); ALT ALANINE AMINOTRANSFERASE 13 IU/L (10-60); AST ASPARTATE AMINOTRANSFERASE 17 IU/L (10-42); BILIRUBIN,TOTAL < 0.2 mg/dL (0.2-1.0); BUN - BLOOD UREA NITROGEN 12 mg/dL (6-20); CALCIUM 9.2 mg/dL (8.5-10.3); CARBON DIOXIDE - CO2 26 mmol/L (21-32); CHLORIDE 106 mmol/L (101-111); CREATININE 0.6 mg/dL (0.4-1.0); GFR - MDRD 111 (>89); GLUCOSE 99 mg/dL (70-100); LIPASE 36 U/L (22-51); POTASSIUM 3.8 mmol/L (3.5-5.0); SODIUM 138 mmol/L (135-145); TOTAL PROTEIN 6.5 g/dL (6.7-8.2)
[2021-11-15 16:29] LABS: PLATELET ESTIMATE, MANUAL NORMAL (130-450,000) (NORMAL); PLATELET MORPHOLOGY NORMAL APPEARANCE (NORMAL); SLIDE REVIEW? Indicated; WBC MORPHOLOGY (MULTIPLE) NORMAL APPEARANCE (NORMAL)
[2021-11-15 17:05] LABS: BILIRUBIN,URINE NEGATIVE (NEGATIVE); GLUCOSE, URINE (UA) NEGATIVE (NEGATIVE); KETONES,URINE (UA) NEGATIVE (NEGATIVE); LEUKOCYTE ESTERASE, URINE NEGATIVE (NEGATIVE); NITRITE,URINE POSITIVE (NEGATIVE); OCCULT BLOOD,URINE LARGE (NEGATIVE); PH,URINE 6.5 PH (5.0-7.5); PROTEIN,URINE 100 mg/dL (NEGATIVE); UROBILINOGEN,URINE 0.2 (NORMAL) E.U./dL (NORMAL)
[2021-11-15 17:14] LABS: CLARITY,URINE HAZY (CLEAR)
[2021-11-15 17:15] LABS: BACTERIA,URINE Many /HPF (None Seen); SQUAMOUS EPITHELIAL CELL,UR RARE Squamous (<= Few)
--- NOTE | 2021-11-15 17:58 | Ultrasound Report ---
PROCEDURE: Pelvic w/Transvaginal INDICATIONS: excess vag bleeding post uterine biopsy TECHNIQUE: Real-time scanning was performed of the pelvic organs, with image documentation. Additional endovagi nal scanning was necessary due to incomplete visualization of the adnexal and endometrial structures by transabdominal scanning. COMPARISON: None. FINDINGS: Uterus: Uterus is anteverted and normal in size at 8.0 x 4.6 x 4.8 cm. The myometrium is heterogene ous. The endometrium measures 10 mm in combined thickness, and is heterogeneous with increased vascu larity. No focal uterine mass. Multiple nabothian cysts. Ovaries: The right ovary measures 2.2 x 1.9 x 2.5 cm, with a calculated ovarian volume of 5.3 cc. T he left ovary measures 2.4 x 2.2 x 2.4 cm, with a calculated ovarian volume of 6.5 cc. The ovaries h ave a normal sonographic appearance. Less than 12 follicles can be seen in each ovary. No adnexal m asses are seen. Other: No pathologic free abdominal or pelvic fluid. IMPRESSION: 1. Heterogeneous endometrium with increased vascularity, consistent with postsurgical sequelae. Super imposed infection or inflammation cannot be excluded. Reviewed by: Melina Live MD on 11/15/2021 5:57 PM PDT Approved by: Melina Live MD on 11/15/2021 5:57 PM PDT Station ID: [id number]
[2021-11-15] MEDS ORDERED: cefTRIAXone 1 GM VIAL IVP STA (18:09)
[2021-11-15] MEDS ORDERED: cefTRIAXone 1 GM VIAL IM STA (18:15)
[2021-11-15] MEDS ORDERED: LIDOCAINE 1% 2 ML VIAL MC ONE (18:15)
--- NOTE | 2021-11-15 18:30 | CONSULTATION NOTE ---
Surgery Consult - Consult Date Consult Date: 11/15/21 Requesting Provider: Cj Barrett MD - Chief Complaint Chief Complaint: Heavy vaginal bleeding - Home Meds/Allergies Home Medications: Patient History Medication Instructions Recorded Confirmed metFORMIN [Glucophage] 1,000 mg PO DAILY 03/26/21 11/15/21 Ferrous Sulfate 325 mg PO DAILY 10/24/21 11/15/21 Allergies/Adverse Reactions: Allergies Allergy/AdvReac Type Severity Reaction Status Date / Time No Known Drug Allergies Allergy Verified 11/15/21 15:02 - Vital Signs Vital Signs: Last Vital Signs Temp 97.0 F L 11/15/21 14:57 Pulse 97 11/15/21 14:57 Resp 16 11/15/21 14:57 BP 118/81 H 11/15/21 14:57 Pulse Ox 100 11/15/21 14:57 - Lab Results Result Diagrams: 11/15/21 15:57 11/15/21 15:57 - Consultation Note Consultation Note: Patient is a 41-year-old G 10 P7036 presenting to the ED for heavy vaginal bleeding. She was seen as an outpatient approximately 2 weeks ago for heavy bleeding. At that time her most recent hemoglobin of 9.6. She has been worked up by her PCP and is getting iron transfusions and referral to heme-onc. She had endometrial biopsy at her most recent visit which showed disordered proliferative endometrium without hyperplasia or atypia. Pap smear was normal at that time. Last Saturday, she had intercourse for the first time in a long time, and subsequently developed new episode of heavy bleeding as well as vaginal itching. She was unsure if this itching was normal as she often gets vaginal itching around time of her cycle, but she was confused as she has been bleeding for approximately 1 week. She does say she had increased clots and shows a picture of a large clot that she took. She was noted to have an E. coli UTI on recent UA, and received ceftriaxone in the ED. Past medical history Palpitations Type 2 diabetes mellitus Fatigue Chronic blood loss anemia Past surgical history Denies Family history Denies significant family history Social history Denies tobacco, alcohol, drugs. Former smoker Physical Constitutional: alert, no acute distress, well hydrated, well developed, well nourished, appropriate dress. Cardiovascular: Regular rate and rhythm. Respiratory: no respiratory distress. Abdomen: nondistended, nontender, no guarding. Psych: affect and mood appropriate, normal interaction, good eye contact. : Declines Assessment and plan 41-year-old G 10 P7036 with heavy vaginal bleeding. 1. Heavy vaginal bleeding -Declined second exam today. Dr. Barrett was concerned about a cervical laceration, while this is possible, her prolonged history of bleeding makes it less worrisome. She will follow-up as an outpatient, and if she has persistent bleeding despite treatment will reevaluate -Plan for Depo medroxyprogesterone acetate 150 mg IM. Discussed some patients have prolonged bleeding, but as she is already having this issue, will hopefully help her. Will need to follow-up in clinic every 3 months. Condoms for control in addition to this. -Plan to also try ibuprofen 600 mg 3 times daily for 5 days. -Can also use tranexamic acid 1.3 g 3 times daily for 5 days
[2021-11-15] MEDS ORDERED: IBUPROFEN 800 MG TABLET PO STA (19:00)
[2021-11-15 19:30] VITALS: BP 118/84
== END 2021-11-15 19:30 | disposition home or self-care (01) ==
LOC: ED 14:53
DX: N93.8 Other specified abnormal uterine and vaginal bleeding (principal); N30.00 Acute cystitis without hematuria; Z98.890 Other specified postprocedural states
CPT/HCPCS: 36415; 76830; 76856; 80053; 81001; 83690; 85025; 86850; 86900; 86901; 87086; 87181; 96372; 99284; A9270; J1050; 81003

== ENCOUNTER 2021-11-19 00:48 | Emergency (ER) | payer MEDICAID ==
--- NOTE | 2021-11-19 01:19 | ED Physician Documentation ---
PD HPI FEMALE - Stated complaint Stated Complaint: BLEEDING; CHRONIC ANEMIA - Chief complaint Chief Complaint: Abd Pain - History obtained from History obtained from: Patient - History of Present Illness Timing - onset: How many days ago (9) Timing - details: Abrupt onset, Intermittant Pain level max: 8 Associated symptoms: Pelvic pain (cramping), Vaginal bleeding. 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 She was evaluated in this ED 11/15 for same and w/u included blood tests and pelvic US. She says she was given a depot shot as well as rx for txa; she says she has been taking the txa without improvement. Review of Systems Constitutional: reports: Fatigue. denies: Fever, Chills, Sweats Cardiac: reports: Reviewed and negative Respiratory: reports: Reviewed and negative GI: reports: Reviewed and negative : reports: Vaginal bleeding. 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 Menses type bleeding heavy and about every 2-3 weeks. ) : None HEENT: None Psych: None Musculoskeletal: None Derm: None (iron deficiency anemia) - Past Surgical History Past Surgical History: No - Present Medications Home Medications: Ambulatory Orders Medication Instructions Recorded Confirmed metFORMIN [Glucophage] 1,000 mg PO DAILY 03/26/21 11/15/21 Ferrous Sulfate 325 mg PO DAILY 10/24/21 11/15/21 Ibuprofen [Motrin] 1 tablet PO Q8H PRN #30 tablet 11/15/21 Tranexamic Acid 650 mg PO TID 7 Days #20 tablet 11/15/21 cephALEXin [Keflex] 500 mg PO TID #20 cap 11/15/21 HYDROcod/ACETAM 5/325 [[place] 5/325] 1 - 2 tablet PO Q6H PRN #14 tablet 11/19/21 Norethindrone Acetate 5 mg PO DAILY #5 tablet 11/19/21 - Allergies Allergies/Adverse Reactions: Allergies Allergy/AdvReac Type Severity Reaction Status Date / Time No Known Drug Allergies Allergy Verified 11/19/21 00:57 - Social History Does the pt smoke?: Yes Smoking Status: Unknown if ever smoked Does the pt drink ETOH?: Yes Does the pt have substance abuse?: No - Immunizations Immunizations are current?: Yes - POLST Patient has POLST: No PD ED PE NORMAL - Vitals Vital signs reviewed: Yes - General General: Alert and oriented X 3, No acute distress, Well developed/nourished - Cardiac Cardiac: RRR, No murmur - Respiratory Respiratory: No respiratory distress, Clear bilaterally - Abdomen Abdomen: Normal bowel sounds, Soft, Non tender, Non distended - Back Back: No CVA TTP - Derm Derm: Normal color, Warm and dry Results - Vitals Vitals: Oxygen O2 Source Room air - Labs Labs: Laboratory Tests 11/19/21 01:27 WBC 7.4 RBC 3.66 L Hgb 8.8 L Hct 29.6 L MCV 80.9 L MCH 24.0 L MCHC 29.7 L Plt Count 259 MPV 9.7 Neut # (Auto) 3.6 Lymph # (Auto) 3.0 [place] # (Auto) 0.6 Eos # (Auto) 0.1 Baso # (Auto) 0.1 Absolute Nucleated RBC 0.00 Nucleated RBC % 0.0 Manual Slide Review Indicated Platelet Estimate NORMAL (130-450,000) RBC Morph Micro Appear 1+ TEARDROP CELLS PD MEDICAL DECISION MAKING - ED course Complexity details: reviewed old records, reviewed results, re-evaluated patient, considered differential, d/w patient ED course: today's hgb is 8.8. Recent hemoglobin results were 9.7 (11/15), 8.6 (10/24), 8.2 (10/20), 8.0 (09/16), and 7.7 (10/05). She is in NAD and has unremarkable exam. She repeatedly tells me she "just wants it to stop". Given the testing performed on recent [facility] ED visit (11/15) that included pelvic US, no testing beyond blood tests performed at this time. I contacted quantitative consultant tungsten refiner (Dr. Mathis), recommends 5 days of 5mg aygestin PO QD and will f/u this coming Saturday (patient told to expect a call from the office to discuss follow up). Departure - Departure Disposition: 01 Home, Self Care Clinical Impression: Vaginal bleeding Condition: Good Instructions: ED Bleed Irregular Vaginal, ED Pelvic Pain [facility] Follow-Up: Hilda Mathis DO [Provider Admit Priv/Credential] - Prescriptions: HYDROcod/ACETAM 5/325 [[place] 5/325] 1 - 2 tablet PO Q6H PRN #14 tablet PRN Reason: Pain Norethindrone Acetate 5 mg PO DAILY #5 tablet Comments: Prescriptions for vicodin (opiate pain medication) and norethindrone have been electronically submitted to [facility] pharmacy in [place]. The norethindrone is to help slow/stop the vaginal bleeding and cramping. You should receive a call from the tungsten refiner office of Dr. Lugo / Dr. Mathis on Saturday (morning) to discuss follow up. Discharge Date/Time: 11/19/21 03:11
[2021-11-19 01:33] LABS: BASOPHILS # (AUTO) 0.1 10^3/uL (0.0-0.1); BASOPHILS % (AUTO) 0.8 %; EOSINOPHILS # (AUTO) 0.1 10^3/uL (0.0-0.7); EOSINOPHILS % (AUTO) 1.9 %; HCT - HEMATOCRIT 29.6 % (37.0-47.0); HGB - HEMOGLOBIN 8.8 g/dL (12.0-16.0); LYMPHOCYTES % (AUTO) 41.1 %; MEAN CORPUSCULAR HGB CONC 29.7 g/dL (32.0-36.0); MEAN CORPUSCULAR VOLUME 80.9 fL (81.0-99.0); MEAN PLATELET VOLUME 9.7 fL (7.9-10.8); MONOCYTES # (AUTO) 0.6 10^3/uL (0.0-1.0); MONOCYTES % (AUTO) 7.5 %; NEUTROPHILS # (AUTO) 3.6 10^3/uL (1.5-6.6); NEUTROPHILS % (AUTO) 48.6 %; PLT - PLATELET COUNT 259 10^3/uL (130-450); RED BLOOD COUNT 3.66 10^6/uL (4.20-5.40); WHITE BLOOD COUNT 7.4 x10^3/uL (4.8-10.8)
[2021-11-19 01:59] LABS: SLIDE REVIEW? Indicated
[2021-11-19 02:07] LABS: PLATELET ESTIMATE, MANUAL NORMAL (130-450,000) (NORMAL)
[2021-11-19] MEDS ORDERED: HYDROcod/ACET 5/325 Prepack 4 PO STA (03:00)
[2021-11-19 03:02] VITALS: BP 129/82
== END 2021-11-19 03:11 | disposition home or self-care (01) ==
LOC: ED 00:48
DX: N93.9 Abnormal uterine and vaginal bleeding, unspecified (principal); E11.9 Type 2 diabetes mellitus without complications; Z79.84 Long term (current) use of oral hypoglycemic drugs
CPT/HCPCS: 36415; 85025; 99283; 99284

== ENCOUNTER 2021-11-28 16:15 | Outpatient (CLI) | payer MEDICAID | END 2021-11-28 16:16 | disposition home or self-care (01) | LOC: LAB 16:15 | PROVIDERS: ATTEND Nurse Practitioner | DX: Z53.9 Procedure and treatment not carried out, unspecified reason (principal) ==

== ENCOUNTER 2022-01-23 20:31 | Outpatient (CLI) | payer MEDICAID ==
--- NOTE | 2022-01-24 20:09 | Ultrasound Report ---
PROCEDURE: Pelvic w/Transvaginal INDICATIONS: ABN UTERINE BLEEDING TECHNIQUE: Real-time scanning was performed of the pelvic organs, with image documentation. Additional endovagi nal scanning was necessary due to incomplete visualization of the adnexal and endometrial structures by transabdominal scanning. COMPARISON: 11/15/2021. FINDINGS: Uterus: Uterus is anteverted and normal in size at 8.5 x 4.5 x 4.6 cm. The myometrium is heterogene ous. No discrete uterine fibroid is seen. The endometrium measures 12.6 mm in combined thickness. A gain noted is heterogeneous and endometrial echotexture with increased vascularity, no discrete solid mass or fluid is seen. Multiple large nabothian cysts are again seen along the endocervical canal un changed from prior study. Ovaries: The right ovary measures 4.5 x 2.8 x 3.3 cm, with a calculated ovarian volume of 21.6 cc. The left ovary measures 2.4 x 2.2 x 1.9 cm, with a calculated ovarian volume of 5.2 cc. The ovaries have a normal sonographic appearance. Less than 12 follicles can be seen in each ovary. Dominant fol licle is seen in right ovary measures. 1.5 cm in size and containing internal septation. No adnexal m asses are seen. Other: No pathologic free abdominal or pelvic fluid. IMPRESSION: 1. Heterogeneous endometrial echotexture with increased vascularity not significantly changed from pr ior study. Underlying endometrial mass/infection/inflammation cannot be excluded. No discrete endomet rial mass or fluid is seen. 2. Bilateral ovarian follicles as above. No gross solid-appearing ovarian lesion. No evidence of ovar mi torsion. Reviewed by: Lion Smith MD on 01/24/2022 8:07 PM PST Approved by: Lion Smith MD on 01/24/2022 8:07 PM PST Station ID: [id number]
== END 2022-01-23 20:32 | disposition home or self-care (01) ==
LOC: DI 20:31
PROVIDERS: ATTEND Obstetrics & Gynecology
DX: N93.9 Abnormal uterine and vaginal bleeding, unspecified (principal)

== ENCOUNTER 2022-02-26 12:19 | Emergency (ER) | payer MEDICAID ==
[2022-02-26 12:59] LABS: BASOPHILS # (AUTO) 0.1 10^3/uL (0.0-0.1); BASOPHILS % (AUTO) 0.7 %; EOSINOPHILS # (AUTO) 0.1 10^3/uL (0.0-0.7); EOSINOPHILS % (AUTO) 0.7 %; HCT - HEMATOCRIT 42.5 % (37.0-47.0); HGB - HEMOGLOBIN 13.3 g/dL (12.0-16.0); LYMPHOCYTES # (AUTO) 2.1 10^3/uL (1.5-3.5); LYMPHOCYTES % (AUTO) 24.5 %; MEAN CORPUSCULAR HEMOGLOBIN 27.5 pg (27.0-31.0); MEAN CORPUSCULAR HGB CONC 31.3 g/dL (32.0-36.0); MEAN PLATELET VOLUME 10.1 fL (7.9-10.8); MONOCYTES # (AUTO) 0.6 10^3/uL (0.0-1.0); MONOCYTES % (AUTO) 7.4 %; NEUTROPHILS # (AUTO) 5.7 10^3/uL (1.5-6.6); NEUTROPHILS % (AUTO) 66.5 %; PLT - PLATELET COUNT 304 10^3/uL (130-450); RED BLOOD COUNT 4.83 10^6/uL (4.20-5.40); RED CELL DISTRIBUTION WIDTH 15.2 % (12.0-15.0); WHITE BLOOD COUNT 8.5 x10^3/uL (4.8-10.8)
[2022-02-26 13:21] LABS: ALBUMIN 3.9 g/dL (3.2-5.5); ALBUMIN/GLOBULIN RATIO 1.1 (1.0-2.2); BILIRUBIN,TOTAL 0.9 mg/dL (0.2-1.0); CALCIUM 9.3 mg/dL (8.5-10.3); CREATININE 0.7 mg/dL (0.4-1.0); POTASSIUM 3.2 mmol/L (3.5-5.0); TOTAL PROTEIN 7.5 g/dL (6.7-8.2)
--- NOTE | 2022-02-26 14:57 | Ultrasound Report ---
PROCEDURE: Pelvic Complete INDICATIONS: pelvic pain, +preg TECHNIQUE: Real-time transabdominal scanning was performed of the pelvic organs, with image documentation. Julieta ent declined transvaginal examination. COMPARISON: Pelvic ultrasound 01/23/2022. FINDINGS: Uterus: Uterus is anteverted and normal in size at 7.5 x 4.8 x 4.1 cm. Endometrium measures 3 mm in combined thickness. No intrauterine gestational sac is identified. Ovaries: Within normal limits. No mass or suspicious cyst. Right ovary measures 2.3 x 2.1 x 1.2 cm, volume of 3 cc. Left ovary measures 2.3 x 2 x 1.9 cm, volume of 5 cc. Other: No free pelvic fluid. IMPRESSION: Transvaginal examination was not performed. No intrauterine gestational sac demonstrated. No significant ovarian cyst. Consider trending beta hCG and short-term follow-up pelvic ultrasound. Reviewed by: Duc Apple MD on 02/26/2022 2:56 PM PST Approved by: Duc Apple MD on 02/26/2022 2:56 PM PST Station ID: [id number]
[2022-02-26 16:20] VITALS: BP 144/99
[2022-02-26 16:29] LABS: BILIRUBIN,URINE NEGATIVE (NEGATIVE); GLUCOSE, URINE (UA) NEGATIVE (NEGATIVE); KETONES,URINE (UA) NEGATIVE (NEGATIVE); LEUKOCYTE ESTERASE, URINE NEGATIVE (NEGATIVE); NITRITE,URINE NEGATIVE (NEGATIVE); OCCULT BLOOD,URINE LARGE (NEGATIVE); PROTEIN,URINE 100 mg/dL (NEGATIVE); UROBILINOGEN,URINE 0.2 (NORMAL) E.U./dL (NORMAL)
[2022-02-26 16:30] LABS: CLARITY,URINE HAZY (CLEAR); HCG UR QUAL NEGATIVE
[2022-02-26 16:39] LABS: BACTERIA,URINE Few /HPF (None Seen); CRYSTALS,URINE 3-5 Calcium Oxalate /LPF; MUCUS,URINE Marked Strands; RBC,URINE TNTC /HPF (0-5); SQUAMOUS EPITHELIAL CELL,UR FEW Squamous (<= Few)
== END 2022-02-26 17:20 | disposition left against medical advice (07) ==
LOC: ED 12:19
DX: R10.2 Pelvic and perineal pain (principal); Z53.21 Procedure and treatment not carried out due to patient leaving prior to being seen by health care provider
CPT/HCPCS: 36415; 80053; 81001; 81003; 81025; 83690; 84702; 85025; 87086

== ENCOUNTER 2022-04-30 10:40 | Emergency (ER) | payer MEDICAID ==
--- NOTE | 2022-04-30 11:13 | XRAY Report ---
PROCEDURE: Chest 1 View X-Ray INDICATIONS: Chest pain TECHNIQUE: One view of the chest was acquired. COMPARISON: None. FINDINGS: Surgical changes and devices: None. Lungs and pleura: No pleural effusions or pneumothorax. Lungs are clear. Mediastinum: Mediastinal contours appear normal. Heart size is normal. Bones and chest wall: No suspicious bony lesions. Overlying soft tissues appear unremarkable. IMPRESSION: No acute cardiopulmonary process demonstrated radiographically. Reviewed by: Santiago Coleman MD on 04/30/2022 11:11 AM [facility] Approved by: Santiago Coleman MD on 04/30/2022 11:11 AM [facility] Station ID: [id number]
[2022-04-30 11:23] LABS: BASOPHILS % (AUTO) 0.5 %; EOSINOPHILS # (AUTO) 0.1 10^3/uL (0.0-0.7); HCT - HEMATOCRIT 44.2 % (37.0-47.0); HGB - HEMOGLOBIN 13.7 g/dL (12.0-16.0); LYMPHOCYTES # (AUTO) 2.2 10^3/uL (1.5-3.5); LYMPHOCYTES % (AUTO) 27.1 %; MEAN CORPUSCULAR HEMOGLOBIN 27.6 pg (27.0-31.0); MEAN CORPUSCULAR VOLUME 89.1 fL (81.0-99.0); MEAN PLATELET VOLUME 10.5 fL (7.9-10.8); MONOCYTES # (AUTO) 0.6 10^3/uL (0.0-1.0); MONOCYTES % (AUTO) 6.9 %; NEUTROPHILS # (AUTO) 5.1 10^3/uL (1.5-6.6); NEUTROPHILS % (AUTO) 64.1 %; PLT - PLATELET COUNT 281 10^3/uL (130-450); RED BLOOD COUNT 4.96 10^6/uL (4.20-5.40); RED CELL DISTRIBUTION WIDTH 13.4 % (12.0-15.0); WHITE BLOOD COUNT 7.9 x10^3/uL (4.8-10.8)
[2022-04-30 11:36] LABS: ALBUMIN 3.9 g/dL (3.2-5.5); ALBUMIN/GLOBULIN RATIO 1.1 (1.0-2.2); BILIRUBIN,TOTAL 0.8 mg/dL (0.2-1.0); CALCIUM 9.4 mg/dL (8.5-10.3); CREATININE 0.7 mg/dL (0.4-1.0); POTASSIUM 3.3 mmol/L (3.5-5.0); TOTAL PROTEIN 7.4 g/dL (6.7-8.2)
[2022-04-30] MEDS ORDERED: diltiaZEM CD 120 MG CAPSULE PO STA (11:46)
[2022-04-30] MEDS ORDERED: MELOXICAM 7.5 MG TABLET PO STA (11:46)
[2022-04-30] MEDS ORDERED: FAMOTIDINE 20 MG TABLET PO STA (11:49)
[2022-04-30] MEDS ORDERED: MAG HYDROX/AL HYDROX/SIMETH 30 ML UDC PO STA (11:49)
[2022-04-30] MEDS ORDERED: SUCRALFATE 1 GM/10 ML UDC PO STA (11:49)
[2022-04-30] MEDS ORDERED: LIDOCAINE VISCOUS 2% 15 ML ORAL SYRINGE MM STA (11:49)
[2022-04-30] MEDS ORDERED: LIDOCAINE VISCOUS 2% 15 ML UDC MM STA (11:53)
[2022-04-30 12:34] VITALS: BP 159/106
--- NOTE | 2022-04-30 12:54 | ED Physician Documentation ---
History of Present Illness - Stated complaint Stated Complaint: CHEST PX - Chief complaint Chief Complaint: Cardiac - History obtained from History obtained from: Patient - History of Present Illness Timing: Today Pain level max: 0 Pain level now: 0 - Additonal information Additional information: 41-year-old female presents to the emergency department with chest pain. She states that this is in the center of her chest, nonradiating. She states that it lasts for a few seconds to a few minutes at a time. Nothing really seems to make it better or worse. Currently is not having any symptoms. No fevers. No chills. No rhinorrhea. No congestion. No history of cardiac issues. No change with eating or drinking. No recent travel. No difficulty breathing. No wheezing. Patient does state that she is on diltiazem at home but has not been taking it. She is supposed to take it to control her "tachycardia". 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: Other : None HEENT: None Psych: None Musculoskeletal: None Derm: None (iron deficiency anemia) - Past Surgical History Past Surgical History: No - Present Medications Home Medications: Ambulatory Orders Medication Instructions Recorded Confirmed metFORMIN [Glucophage] 1,000 mg PO DAILY 03/26/21 01/29/22 Ferrous Sulfate 325 mg PO DAILY 10/24/21 01/29/22 Ibuprofen [Motrin] 1 tablet PO Q8H PRN #30 tablet 11/15/21 01/29/22 Tranexamic Acid 650 mg PO TID 7 Days #20 tablet 11/15/21 01/29/22 cephALEXin [Keflex] 500 mg PO TID #20 cap 11/15/21 01/29/22 HYDROcod/ACETAM 5/325 [[place] 5/325] 1 - 2 tablet PO Q6H PRN #14 tablet 11/19/21 01/29/22 Norethindrone Acetate 5 mg PO DAILY #5 tablet 11/19/21 01/29/22 - Allergies Allergies/Adverse Reactions: Allergies Allergy/AdvReac Type Severity Reaction Status Date / Time No Known Drug Allergies Allergy Verified 04/30/22 10:53 - Social History Does the pt smoke?: Yes Smoking Status: Unknown if ever smoked Does the pt drink ETOH?: Yes Does the pt have substance abuse?: No - Immunizations Immunizations are current?: Yes - POLST Patient has POLST: No PD ED PE NORMAL - Vitals Vital signs reviewed: Yes - General General: Alert and oriented X 3, No acute distress - HEENT HEENT: PERRL, Moist mucous membranes - Neck Neck: Supple, no meningeal sign - Cardiac Cardiac: RRR, Strong equal pulses - Respiratory Respiratory: No respiratory distress, Clear bilaterally - Abdomen Abdomen: Normal bowel sounds, Soft, Non tender, Non distended - Derm Derm: Warm and dry - Extremities Extremities: No deformity - Neuro Neuro: Alert and oriented X 3 - Psych Psych: Normal mood, Normal affect Results - Vitals Vitals: Vital Signs - 24 hr 04/30/22 04/30/22 04/30/22 10:45 11:30 12:00 Temperature 36.9 C Heart Rate 101 H 97 89 Respiratory 18 18 18 Rate Blood Pressure 142/103 H 133/100 H 139/106 H O2 Saturation 100 99 100 04/30/22 12:33 Temperature Heart Rate 87 Respiratory 18 Rate Blood Pressure 159/106 H O2 Saturation 98 Oxygen O2 Source Room air - EKG (time done) 1049 Rate: Rate (enter#) (103) Rhythm: Other (PVC) [place]: Normal Intervals: Normal [place] QRS: Normal Ischemia: Normal ST segments - Labs Labs: Laboratory Tests 04/30/22 04/30/22 04/30/22 11:16 11:16 11:16 WBC 7.9 RBC 4.96 Hgb 13.7 Hct 44.2 MCV 89.1 MCH 27.6 MCHC 31.0 L RDW 13.4 Plt Count 281 MPV 10.5 Neut # (Auto) 5.1 Lymph # (Auto) 2.2 [place] # (Auto) 0.6 Eos # (Auto) 0.1 Baso # (Auto) 0.0 Absolute Nucleated RBC 0.00 Nucleated RBC % 0.0 Sodium 141 Potassium 3.3 L Chloride 108 Carbon Dioxide 25 Anion Gap 8.0 BUN 13 Creatinine 0.7 Estimated GFR (MDRD) 93 Glucose 96 Calcium 9.4 Total Bilirubin 0.8 AST 21 ALT 16 Alkaline Phosphatase 53 Troponin I High Sens < 2.3 L Total Protein 7.4 Albumin 3.9 Globulin 3.5 Albumin/Globulin Ratio 1.1 Lipase 45 - Rads (name of study) Chest x-ray Radiology: Final report received, See rad report PD Medical Decision Making - ED course Complexity details: reviewed results, re-evaluated patient, considered differential (No ST elevation [place], no aortic dissection, no PE, no tension pneumothorax, no aortic aneurysm), d/w patient ED course: 41-year-old female presents to the emergency department with atypical chest pain. She has not been taking her diltiazem for tachycardia. She was given her usual dosage here, heart rate decreased and symptoms resolved. No difficulty breathing. No calf tenderness or cord. No recent long travel. No history of blood clots. No hypoxia. No respiratory distress. Patient refuses GI cocktail. She states that her pain has nearly resolved with the diltiazem. We will have her follow-up with her doctor for further care. Negative high- sensitivity troponin. Patient counseled regarding signs and symptoms for which I believe and urgent re-evaluation would be necessary. Patient with good understanding of and agreement to plan and is comfortable going home at this time This document was made in part using voice recognition software. While efforts are made to proofread this document, sound alike and grammatical errors may occur. Departure - Departure Disposition: 01 Home, Self Care Clinical Impression: Chest pain Qualifiers: Chest pain type: unspecified Qualified Code(s): R07.9 - Chest pain, unspecified Condition: Good Instructions: ED Chest Pain Atypical Unkn Cause Follow-Up: Rea Garcia ARNP [Primary Care Provider] - Within 1 week Comments: The cause of your symptoms is unclear today. Your chest x-ray, EKG and laboratory testing did not show any acute abnormalities. I would continue Mot rin and Tylenol as needed for pain and follow-up with your doctor for further care. Please return if you worsen. Discharge Date/Time: 04/30/22 12:59
== END 2022-04-30 12:59 | disposition home or self-care (01) ==
LOC: ED 10:40
DX: R07.9 Chest pain, unspecified (principal); T46.1X6A Underdosing of calcium-channel blockers, initial encounter
CPT/HCPCS: 36415; 71045; 80053; 83690; 84484; 85025; 93005; 99283; 99284; A9270

== ENCOUNTER 2022-05-21 16:24 | Outpatient (CLI) | payer MEDICAID ==
[2022-05-21 21:02] LABS: BASOPHILS # (AUTO) 0.1 10^3/uL (0.0-0.1); BASOPHILS % (AUTO) 0.6 %; EOSINOPHILS # (AUTO) 0.1 10^3/uL (0.0-0.7); EOSINOPHILS % (AUTO) 1.8 %; HCT - HEMATOCRIT 42.9 % (37.0-47.0); HGB - HEMOGLOBIN 13.6 g/dL (12.0-16.0); LYMPHOCYTES # (AUTO) 2.7 10^3/uL (1.5-3.5); LYMPHOCYTES % (AUTO) 34.7 %; MEAN CORPUSCULAR HEMOGLOBIN 27.9 pg (27.0-31.0); MEAN CORPUSCULAR HGB CONC 31.7 g/dL (32.0-36.0); MEAN CORPUSCULAR VOLUME 88.1 fL (81.0-99.0); MEAN PLATELET VOLUME 11.3 fL (7.9-10.8); MONOCYTES # (AUTO) 0.7 10^3/uL (0.0-1.0); MONOCYTES % (AUTO) 9.2 %; NEUTROPHILS # (AUTO) 4.2 10^3/uL (1.5-6.6); NEUTROPHILS % (AUTO) 53.6 %; PLT - PLATELET COUNT 307 10^3/uL (130-450); RED BLOOD COUNT 4.87 10^6/uL (4.20-5.40); RED CELL DISTRIBUTION WIDTH 14.1 % (12.0-15.0); WHITE BLOOD COUNT 7.8 x10^3/uL (4.8-10.8)
[2022-05-21 21:17] LABS: % IRON SATURATION 16 % (20-50); IRON 57 ug/dL (28-170); TOTAL IRON BINDING CAPACITY 350 ug/dL (250-450); TRANSFERRIN 250 mg/dL (192-382)
[2022-05-21 21:59] LABS: ESTIMATED AVERAGE GLUCOSE 114 mg/dL (70-100); HEMOGLOBIN A1c% 5.6 % (4.27-6.07)
== END 2022-05-21 16:25 | disposition home or self-care (01) ==
LOC: LAB.N 16:24
PROVIDERS: ATTEND Nurse Practitioner
DX: D64.9 Anemia, unspecified (principal); E11.8 Type 2 diabetes mellitus with unspecified complications
CPT/HCPCS: 36415; 82728; 83036; 83540; 84466; 85025

== ENCOUNTER 2022-07-03 06:49 | Day surgery (SDC) | payer MEDICAID ==
[2022-07-03] MEDS ORDERED: LACTATED RINGERS 1,000 ML IV ONE ×2 (07:03→09:57)
[2022-07-03 07:10] LABS: HCG UR QUAL NEGATIVE
[2022-07-03] MEDS ORDERED: GABAPENTIN 400 MG CAPSULE ONE (07:20)
[2022-07-03] MEDS ORDERED: CELECOXIB 100 MG CAPSULE PO ONE (07:21)
[2022-07-03] MEDS ORDERED: ACETAMINOPHEN 500 MG TABLET PO ONE (07:21)
[2022-07-03] MEDS ORDERED: SILVER NITRATE APPLICATOR TOP ONE (07:57)
[2022-07-03] MEDS ORDERED: LIDOCAINE MPF 2%-EPI 1:200000 20 ML VIAL ONE (07:57)
[2022-07-03] MEDS ORDERED: BUPIVACAINE 0.25% PF 10 ML VIAL ONE (08:02)
[2022-07-03] MEDS ORDERED: LIDOCAINE-MPF 1% 30 ML VIAL ONE (08:02)
--- NOTE | 2022-07-03 08:03 | ANESTHESIA ---
Pre-Anesthesia VS, & Labs - Diagnosis dysfunctional uterine bleeding, desires sterilization - Procedure lap johnny. salpingectomy, hysterscopy, endometrial ablation Vital Signs: Temp Pulse Resp BP Pulse Ox O2 Flow Rate 36.2 C L 99 16 121/89 H 98 0 07/03/22 07:14 07/03/22 07:14 07/03/22 07:14 07/03/22 07:14 07/03/22 07:14 07/03/22 07:14 Height: 4 ft 11 in Weight (kg): 72 kg Body Mass Index: 32.0 BMI Classification: Obese - NPO >8 hours - Is Patient ?: No - Lab Results Current Lab Results: Laboratory Tests 07/03/22 07:46: POC Whole Bld Glucose 84 Lab results reviewed: Yes Home Medications and Allergies Home Medications: Ambulatory Orders Diltiazem HCl [Cardizem LA] 120 mg PO DAILY 06/29/22 Liraglutide [Victoza 2-Bebeto] 1.2 mg SQ DAILY 06/29/22 Medroxyprogesterone Acetate [Provera] 10 mg PO DAILY 06/29/22 lisinopriL [Zestril] 5 mg PO DAILY 06/29/22 methocarbamoL [Methocarbamol] 750 mg PO Q6HR PRN 06/29/22 metFORMIN [Glucophage] 500 mg PO BID 03/26/21 Ferrous Sulfate 325 mg PO DAILY 10/24/21 Diltiazem HCl [Cardizem LA] 120 mg PO DAILY 06/29/22 Liraglutide [Victoza 2-Bebeto] 1.2 mg SQ DAILY 06/29/22 Medroxyprogesterone Acetate [Provera] 10 mg PO DAILY 06/29/22 lisinopriL [Zestril] 5 mg PO DAILY 06/29/22 methocarbamoL [Methocarbamol] 750 mg PO Q6HR PRN 06/29/22 Allergies/Adverse Reactions: Allergies Allergy/AdvReac Type Severity Reaction Status Date / Time No Known Drug Allergies Allergy Verified 04/30/22 10:53 Anes History & Medical History - Anesthetic History Anesthesia Complications: reports: No previous complications - Medical History Cardiovascular: reports: Arrhythmia Pulmonary: reports: None Gastrointestinal: reports: None Urinary: reports: None Neuro: reports: None Musculoskeletal: reports: None Endocrine/Autoimmune: reports: Type 2 diabetes Blood Disorders: reports: Anemia Skin: reports: None Smoking Status: Former smoker (quit 2 years ago) Psychosocial: reports: No issues indicated History of Cancer?: No - Surgical History Gynecologic: reports: Other (post hemmorhage) Exam General: Alert, Oriented x3, Cooperative, No acute distress Dental: WNL Mouth Openin Fingerbreadth Neck Mobility: Normal Mallampati classification: I Thyromental Distance: 4-6 cm Mental/Cognitive Status: Alert/Oriented X3, Normal for patient Plan Anesthesia Type: General Consent for Procedure(s) Verified and Reviewed: Yes Code Status: Attempt Resuscitation ASA classification: 2-Mild systemic disease Is this case an emergency?: No
[2022-07-03] MEDS ORDERED: ROCURONIUM 50 MG/5 ML VIAL ONE (08:15)
[2022-07-03] MEDS ORDERED: fentaNYL 100 MCG/2 ML VIAL ONE ×2 (08:15→10:08)
[2022-07-03] MEDS ORDERED: MIDAZOLAM 2 MG/2 ML VIAL ONE (08:15)
[2022-07-03] MEDS ORDERED: PROPOFOL 200 MG/20 ML VIAL IVP ONE (08:15)
[2022-07-03] MEDS ORDERED: PHENYLEPHRINE 10 MG/ML VIAL ONE (09:04)
[2022-07-03] MEDS ORDERED: BUPIVACAINE 0.25% PF 30 ML VIAL SUBQ ONE ×2 (09:16)
[2022-07-03] MEDS ORDERED: SUGAMMADEX 200 MG/2 ML VIAL IVP ONE (09:41)
[2022-07-03] MEDS ORDERED: ONDANSETRON 4 MG/2 ML VIAL ONE (09:41)
[2022-07-03] MEDS ORDERED: oxyCODONE 5 MG TABLET PO PRN (09:50)
--- NOTE | 2022-07-03 10:02 | OPERATIVE REPORT ---
Operative Report - General Procedure Date: 07/03/22 Planned Procedure: Laparoscopic bilateral salpingectomy Hysteroscopy Dilation and curettage Endometrial ablation Possible peritoneal biopsy Pre-Op Diagnosis: Abnormal uterine bleeding, undesired fertility Procedure Performed: Laparoscopic bilateral salpingectomy Hysteroscopy Dilation and curettage Endometrial ablation Post Op Diagnosis: Same - Procedure Note Primary Surgeon: Ministerio Lugo MD Secondary Surgeon: MICHELLE Alvares Anesthesia Provider: Francesca Wood CRNA Anesthesia Technique: General ET tube Pathology: Endometrial curettings Bilateral fallopian tubes IV Fluids (mL): 1,100 Estimated Blood Loss (mL): 10 Urine Output (mL): 150 Complications: None - Other Other Information/Narrative: Prior to surgery, we discussed the risks, alternatives, benefits to tubal ligation. We discussed long-acting control such as IUDs and implants. We had discussion about partner vasectomy and the pros and cons to this including a smaller surgery, and easier recovery. We discussed the general risk of surgery including infection, bleeding, damage to other organs, needing a larger incision. Specific to tubal ligation, we discussed the risk of regret, and discussed that regret is greater in those under 30, without children, and not in stable relationships. Patient says she is confident in her decision to not have any more children. We also discussed the risk of failure, and that less than 1/100 tubal ligation fail, but if it did, she would be at increased risk of ectopic . Patient desires to proceed with bilateral tubal ligation. Patient was taken to the OR and placed in the dorsal lithotomy position using great white stirrups after adequate anesthesia was obtained. Patient was prepped and draped in the usual fashion. A sponge stick was placed in the vagina for manipulation. 2 mL of 0.25% Marcaine was used below the umbilicus. An 11 blade scalpel was used to incise the skin. Direct visual entry was used to place the infraumbilical trocar. Upon entering the peritoneal cavity, low flow was used to ensure appropriate positioning. Upon visualization of the abdominal cavity, high flow was then initiated. 2 additional trocars was placed under visualization in a similar fashion in the right and left lower quadrants. After visualization of the left fallopian tube, it was grasped with an atraumatic grasper. The mesosalpinx was cauterized and cut with a Ligasure device. Attention was then turned to the right fallopian tube which was then removed in a similar fashion. The abdomen was reviewed for hemostasis, and a healthy-appearing liver was noted. The trocars were then removed, and abdomen was evacuated of gas. The trocar sites were then closed with a 4-0 Monocryl in a sub-cuticular fashion and covered with Dermabond. Attention was then turned to the vaginal portion of the procedure. [place] speculum was used to visualize the cervix. A large, multiparous cervix was noted. The anterior lip of the cervix was grasped with a single-tooth tenaculum. Four mL of 0.25% Marcaine was used for a cervical block. The cervical was easily dilated with Hegar dilators. The hysteroscope was turned on and using hydrodistention, the hysteroscope passed easily into the uterine cavity. Proliferative endometrium was noted. No polyps or fibroids were visualized. Bilateral ostia were noted. Hysteroscope was then removed. A sharp D&C was then performed with a moderate amount of tissue which was sent to pathology. The uterus was then dilated to 8 cm with Hegar dilators. Was then sounded to a length of 8 cm with a cervical length of 3 cm. The NovaSure device was then opened and tested. The instrument deployed normally. The instrument was set to the correct cavity length was introduced in the uterine cavity. The fan was deployed with gentle movements measuring 4.2 within the cavity. The cavity depth was 5 cm. The cone device was then slid down to the cervix and the device was activated. Total burn time was 67 seconds. The NOVA SURE was then retracted and was removed. The fan was examined and revealed charred tissue. Hysteroscope was used to examine a sufficient burn. Tenaculum was removed cervix examined for hemostasis which was achieved using a sponge stick. The bivalve speculum was then removed. The patient tolerated procedure well and was brought to recovery room in good condition. Sponge and instruments were counted and correct. Blood loss was minimal and there were no complications. Patient was taken to the PACU in stable condition. I appreciate the assistance of MICHELLE Alvares during this procedure, and the assistance in retraction, visualization, dissection, and overall assistance during the case were instrumental to the patient's wellbeing.
[2022-07-03] MEDS ORDERED: NALOXONE 0.4 MG/ML VIAL IVP PRN (10:07)
[2022-07-03] MEDS ORDERED: MORPHINE 2 MG/ML CARPUJECT IVP PRN (10:07)
[2022-07-03] MEDS ORDERED: HYDROmorphone 0.5 MG/0.5 ML SYRINGE IVP PRN (10:07)
[2022-07-03] MEDS ORDERED: ATROPINE ABBOJECT 1 MG/10 ML SYRINGE IVP PRN (10:07)
[2022-07-03] MEDS ORDERED: ONDANSETRON 4 MG/2 ML VIAL IVP PRN ×2 (10:07→13:02)
[2022-07-03] MEDS: fentaNYL 100 MCG/2 ML VIAL IVP PRN ×2 (10:08→10:28)
[2022-07-03] MEDS ORDERED: HYDROmorphone 0.5 MG/0.5 ML SYRINGE ONE (10:59)
[2022-07-03] MEDS ORDERED: LACTATED RINGERS 1,000 ML IV SCH (11:00)
[2022-07-03 12:44] VITALS: BP 133/84
--- NOTE | 2022-07-03 13:05 | ANESTHESIA POST OP EVALUATION ---
Anesthesia Post Eval - Post Anesthesia Eval Vitals: Last Vital Signs Temp 36.6 C 07/03/22 12:40 Pulse 86 07/03/22 12:40 Resp 16 07/03/22 12:40 BP 133/84 H 07/03/22 12:40 Pulse Ox 99 07/03/22 12:40 O2 Flow Rate 0 07/03/22 07:14 CV Function Including HR & BP: Stable Pain Control: Satisfactory Nausea & Vomiting: Negative Mental Status: Baseline Respiratory Status: Airway Patent Hydration Status: Satisfactory Anesthesia Complications: None
[2022-07-03] MEDS ORDERED: oxyCODONE 5 MG TABLET ONE (13:14)
== END 2022-07-03 06:50 | disposition home or self-care (01) ==
LOC: SDS 06:49
PROVIDERS: ATTEND Obstetrics & Gynecology
PROC: 0UT74ZZ Resection of Bilateral Fallopian Tubes, Percutaneous Endoscopic Approach (ICD-10-PCS; principal; 2022-07-03 08:30)
PROC: 0U5B7ZZ Destruction of Endometrium, Via Natural or Artificial Opening (ICD-10-PCS; 2022-07-03 08:30)
DX: N93.8 Other specified abnormal uterine and vaginal bleeding (principal); R10.2 Pelvic and perineal pain; Z30.2 Encounter for sterilization; E66.9 Obesity, unspecified; Z68.32 Body mass index [BMI] 32.0-32.9, adult; E11.9 Type 2 diabetes mellitus without complications; Z79.84 Long term (current) use of oral hypoglycemic drugs; Z87.891 Personal history of nicotine dependence
CPT/HCPCS: 36415; 58563; 58661; 81025; 86850; 86900; 86901; A9270; J1170; J7120

== ENCOUNTER 2022-07-11 13:32 | Emergency (ER) | payer MEDICAID ==
--- NOTE | 2022-07-11 13:57 | ED Physician Documentation ---
History of Present Illness - Stated complaint Stated Complaint: SHARP ABD PX - Chief complaint Chief Complaint: Abd Pain - Additonal information Additional information: 41-year-old female presents to the emergency department for evaluation of sharp lower pelvic/abdominal pain. She underwent a laparoscopic bilateral salpingectomy, D&C and endometrial ablation with Dr. Lugo on 03 July. Patient reported that she returned to work yesterday. 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 Today at work she developed this sharp unrelenting pain that lasted more than an hour. Reported some associated nausea. Since surgery she denies any fevers. She has had persistent clear watery vaginal discharge which she was told to expect. She does have some urinary urgency and frequency as well. Review of Systems Constitutional: denies: Fever, Chills Cardiac: reports: Reviewed and negative GI: reports: Other (lower pelvic pain) : reports: Dysuria Skin: reports: Reviewed and negative Musculoskeletal: reports: Reviewed and negative PD PAST MEDICAL HISTORY - Past Medical History Cardiovascular: Arrhythmia Respiratory: None Neuro: None Endocrine/Autoimmune: Type 2 diabetes GI: None AURICULOTHERAPIST: Other : None HEENT: None Psych: None Musculoskeletal: None Derm: None - Past Surgical History Past Surgical History: No /AURICULOTHERAPIST: Other (post hemmorhage) - Present Medications Home Medications: Ambulatory Orders Medication Instructions Recorded Confirmed metFORMIN [Glucophage] 500 mg PO BID 03/26/21 07/03/22 Ferrous Sulfate 325 mg PO DAILY 10/24/21 07/03/22 Ibuprofen [Motrin] 1 tablet PO Q8H PRN #30 tablet 11/15/21 07/03/22 Diltiazem HCl [Cardizem LA] 120 mg PO DAILY 06/29/22 07/03/22 Liraglutide [Victoza 2-Bebeto] 1.2 mg SQ DAILY 06/29/22 07/03/22 Medroxyprogesterone Acetate 10 mg PO DAILY 06/29/22 07/03/22 [Provera] lisinopriL [Zestril] 5 mg PO DAILY 06/29/22 07/03/22 methocarbamoL [Methocarbamol] 750 mg PO Q6HR PRN 06/29/22 07/03/22 oxyCODONE [Roxicodone] 5 mg PO Q4H PRN #12 tablet 07/03/22 - Allergies Allergies/Adverse Reactions: Allergies Allergy/AdvReac Type Severity Reaction Status Date / Time No Known Drug Allergies Allergy Verified 07/11/22 13:38 - Social History Does the pt smoke?: Yes Smoking Status: Former smoker (quit 2 years ago) Does the pt drink ETOH?: Yes Does the pt have substance abuse?: No - Immunizations Immunizations are current?: Yes - POLST Patient has POLST: No PD ED PE NORMAL - General General: Alert and oriented X 3, No acute distress - HEENT HEENT: PERRL - Neck Neck: Supple, no meningeal sign - Cardiac Cardiac: RRR, No murmur - Respiratory Respiratory: No respiratory distress - Abdomen Abdomen: Normal bowel sounds, Soft. No: Non tender (Focal tenderness in the left lower quadrant of the abdomen. No guarding or rebound. Two mid abdominal laparoscopic incision sites are clean dry and intact without surrounding erythema or drainage.) - Derm Derm: Warm and dry - Neuro Neuro: Alert and oriented X 3 Eye Opening: Spontaneous Motor: Obeys Commands Verbal: Oriented GCS Score: 15 Results - Vitals Vitals: Vital Signs - 24 hr 07/11/22 07/11/22 13:38 14:07 Temperature 36.9 C Heart Rate 108 H 99 Respiratory 16 24 Rate Blood Pressure 140/93 H 146/103 H O2 Saturation 100 98 Oxygen O2 Source Room air - Labs Labs: Laboratory Tests 07/11/22 07/11/22 07/11/22 13:53 14:00 14:00 WBC 8.1 RBC 4.87 Hgb 13.9 Hct 42.7 MCV 87.7 MCH 28.5 MCHC 32.6 RDW 14.0 Plt Count 280 MPV 10.4 Neut # (Auto) 4.9 Lymph # (Auto) 2.3 [place] # (Auto) 0.7 Eos # (Auto) 0.1 Baso # (Auto) 0.0 Absolute Nucleated RBC 0.00 Nucleated RBC % 0.0 Sodium 139 Potassium 3.4 L Chloride 106 Carbon Dioxide 23 Anion Gap 10.0 BUN 11 Creatinine 0.7 Estimated GFR (MDRD) 93 Glucose 90 Calcium 9.1 Total Bilirubin 0.8 AST 27 ALT 18 Alkaline Phosphatase 60 Total Protein 7.3 Albumin 4.1 Globulin 3.2 Albumin/Globulin Ratio 1.3 Lipase 40 Urine Color DARK YELLOW Urine Clarity CLEAR Urine pH 6.0 Ur Specific [place] >=1.030 H Urine Protein >=300 H Urine Glucose (UA) NEGATIVE Urine Ketones NEGATIVE Urine Occult Blood LARGE H Urine Nitrite NEGATIVE Urine Bilirubin NEGATIVE Urine Urobilinogen 0.2 (NORMAL) Ur Leukocyte Esterase NEGATIVE Urine RBC TNTC H Urine WBC 4-5 Ur Squamous Epith Cells FEW Squamous Urine Bacteria Moderate H Urine Casts 0-2 Hyaline Casts Ur Microscopic Review INDICATED Urine Culture Comments NOT INDICATED - Rads (name of study) CT abd Relevant Findings:: Final report received (No pelvic free fluid. Nonspecific appearance of prominent endometrium.) PD Medical Decision Making - ED course Complexity details: reviewed results, re-evaluated patient, d/w patient, d/w immigration consultant (Mark) ED course: 41-year-old female presents emergency department for evaluation of sudden lower pelvic pain that occurred while she was standing at work. She did undergo an endometrial ablation and partial hysterectomy with Dr. Lugo on the 18th of this month. Unfortunately due to social circumstances she had to return to work sooner than she would have liked. She is continued to have a large amount of mostly watery vaginal discharge. No purulence or foul smell to it. No fevers. On exam she had focal tenderness in the left lower quadrant. Given the recent partial transcervical endometrial ablation as well as hysterectomy I deferred doing a pelvic or speculum exam. In addition to this I also deferred to doing a transvaginal ultrasound without clearance from OB. Subsequently I did obtain a CBC and electrolytes and urinalysis. Per my interpretation no acute worrisome findings with the serum lab work. Her urine does have a fair amount of hematuria but no other clinical findings to suggest infection. As such antibiotics will be deferred. A CT of the abdomen shows some general endometrial inflammation but no free pelvic fluid. CT was done with contrast and there were no findings to suggest a bladder neck or uterer Dysfunction. I briefly discussed this ED visit with on- call OB Dr. Flores. Given the otherwise benign exam, unremarkable vitals negative for fever as well as labs and CT imaging she is stable for discharge home. Patient does have a pending appointment tomorrow with OB in which they will continue to follow-up the symptoms. Patient does have some oxycodone left over from the initial surgery which I have encouraged her to take tonight. The usual emergent return precautions were discussed for worsening symptoms. Departure - Departure Disposition: Home, Self Care Clinical Impression: Lower abdominal pain, S/P endometrial ablation Hematuria Qualifiers: Hematuria type: other microscopic Qualified Code(s): R31.29 - Other microscopic hematuria; R31.2 - Other microscopic hematuria Condition: Stable Record reviewed to determine appropriate education?: Yes Follow-Up: Ministerio Lugo MD [Provider Admit Priv/Credential] - Comments: Hallie blanco you came to the emergency department today because you had sudden pain in your lower pelvic region after working. You did recently undergo an endometrial ablation and partial hysterectomy. Here in the ER your labs were normal. The CT of the abdomen did not show any obvious worrisome findings. There was some blood in your urine but no findings to suggest infection. This could be due to inflammation in the pelvic region due to recent surgery. You do have an appointment tomorrow with the OB providers and I recommend that you keep this appointment. It is okay to take the oxycodone you have at home for pain control. Reasons to return to the ER would include fevers, Foul-smelling vaginal discharge, uncontrolled vomiting, severe or different pelvic pain.
[2022-07-11 14:00] LABS: BILIRUBIN,URINE NEGATIVE (NEGATIVE); GLUCOSE, URINE (UA) NEGATIVE (NEGATIVE); KETONES,URINE (UA) NEGATIVE (NEGATIVE); LEUKOCYTE ESTERASE, URINE NEGATIVE (NEGATIVE); NITRITE,URINE NEGATIVE (NEGATIVE); OCCULT BLOOD,URINE LARGE (NEGATIVE); PROTEIN,URINE >=300 mg/dL (NEGATIVE); UROBILINOGEN,URINE 0.2 (NORMAL) E.U./dL (NORMAL)
[2022-07-11 14:02] LABS: CLARITY,URINE CLEAR (CLEAR)
[2022-07-11 14:12] LABS: BASOPHILS % (AUTO) 0.5 %; EOSINOPHILS # (AUTO) 0.1 10^3/uL (0.0-0.7); HCT - HEMATOCRIT 42.7 % (37.0-47.0); HGB - HEMOGLOBIN 13.9 g/dL (12.0-16.0); LYMPHOCYTES # (AUTO) 2.3 10^3/uL (1.5-3.5); LYMPHOCYTES % (AUTO) 28.9 %; MEAN CORPUSCULAR HEMOGLOBIN 28.5 pg (27.0-31.0); MEAN CORPUSCULAR HGB CONC 32.6 g/dL (32.0-36.0); MEAN CORPUSCULAR VOLUME 87.7 fL (81.0-99.0); MEAN PLATELET VOLUME 10.4 fL (7.9-10.8); MONOCYTES # (AUTO) 0.7 10^3/uL (0.0-1.0); MONOCYTES % (AUTO) 8.3 %; NEUTROPHILS # (AUTO) 4.9 10^3/uL (1.5-6.6); NEUTROPHILS % (AUTO) 60.9 %; PLT - PLATELET COUNT 280 10^3/uL (130-450); RED BLOOD COUNT 4.87 10^6/uL (4.20-5.40); WHITE BLOOD COUNT 8.1 x10^3/uL (4.8-10.8)
[2022-07-11] MEDS ORDERED: iohexoL-300 100 ML VIAL ONE (14:15)
[2022-07-11 14:19] LABS: ALBUMIN 4.1 g/dL (3.2-5.5); ALBUMIN/GLOBULIN RATIO 1.3 (1.0-2.2); BILIRUBIN,TOTAL 0.8 mg/dL (0.2-1.0); CALCIUM 9.1 mg/dL (8.5-10.3); CREATININE 0.7 mg/dL (0.4-1.0); POTASSIUM 3.4 mmol/L (3.5-5.0); TOTAL PROTEIN 7.3 g/dL (6.7-8.2)
[2022-07-11 14:27] LABS: BACTERIA,URINE Moderate /HPF (None Seen); RBC,URINE TNTC /HPF (0-5); SQUAMOUS EPITHELIAL CELL,UR FEW Squamous (<= Few)
[2022-07-11 14:28] LABS: CASTS, URINE 0-2 Hyaline Casts /LPF
--- NOTE | 2022-07-11 15:25 | CT Report ---
PROCEDURE: ABDOMEN/PELVIS W INDICATIONS: s/p partial hysterectomy, lower abd pain CONTRAST: 100ml Omnipaque TECHNIQUE: After the administration of IV contrast, 5 mm thick sections acquired from the diaphragms to the symp hysis. 5 mm thick coronal and sagittal reformats were acquired. For radiation dose reduction, the f ollowing was used: automated exposure control, adjustment of mA and/or kV according to patient size. COMPARISON: CT abdomen pelvis 10/08/2021 FINDINGS: Image quality: Excellent. Lung bases and heart: Unremarkable. Liver: Hepatic steatosis is present. Gallbladder and biliary tree: Spleen: Unremarkable. Pancreas: Unremarkable. Adrenals: Unremarkable. Kidneys and ureters: Unremarkable. Bowel and peritoneum: No bowel distension. No pathologic free fluid. Lymph nodes: No central or retroperitoneal adenopathy. Vessels: Unremarkable. PELVIS Reproductive organs: Endometrium is prominent measuring 3.5 cm. Bladder: Unremarkable. Lymph nodes: Unremarkable. Bones: No aggressive osseous abnormality. Other: None. IMPRESSION: Nonspecific appearance of prominent endometrium. No pelvic free fluid. Reviewed by: Maggie Mclain MD on 07/11/2022 3:23 PM PDT Approved by: Maggie Mclain MD on 07/11/2022 3:23 PM PDT Station ID: [id number]
[2022-07-11] MEDS ORDERED: iohexoL-300 100 ML VIAL IVP ONE (15:27)
[2022-07-11 16:17] VITALS: BP 138/99
== END 2022-07-11 16:17 | disposition home or self-care (01) ==
LOC: ED 13:32
DX: R10.30 Lower abdominal pain, unspecified (principal); Z98.890 Other specified postprocedural states; Z87.891 Personal history of nicotine dependence
CPT/HCPCS: 36415; 74177; 80053; 81001; 83690; 85025; 99283; 99284; Q9967; 81003; 87086

== ENCOUNTER 2022-08-21 15:31 | Emergency (ER) | payer MEDICAID ==
[2022-08-21 15:39] VITALS: BP 141/91
--- NOTE | 2022-08-21 17:18 | Ultrasound Report ---
PROCEDURE: Duplex Ext Veins Left INDICATIONS: LLE pain, swelling TECHNIQUE: Real-time imaging, as well as color and pulse Doppler interrogation, were performed of the lower extr emity deep veins from the inguinal ligament to the popliteal fossa. COMPARISON: None. FINDINGS: The deep veins are normally compressible, and free of intraluminal thrombus. Color and pu lse Doppler demonstrate normal phasic intraluminal flow. There is normal augmentation response to di stal compression maneuver. IMPRESSION: No findings of deep venous thrombosis are seen. Note: Concordant preliminary findings given by the record label intern upon the completion of the examination to Dr. Sheets at 4:51 PM on 08/21/2022. Reviewed by: Artie Song MD on 08/21/2022 4:17 PM LALITHA Approved by: Artie Song MD on 08/21/2022 4:17 PM LALITHA Station ID: [id number]
[2022-08-21] MEDS ORDERED: MELOXICAM 7.5 MG TABLET PO STA (17:22)
--- NOTE | 2022-08-21 17:24 | ED Physician Documentation ---
History of Present Illness - Stated complaint Stated Complaint: LT KNEE PX - Chief complaint Chief Complaint: Ext Problem - History obtained from History obtained from: Patient - History of Present Illness Timing: Other (1 month ago) Pain level max: 6 Pain level now: 6 - Additonal information Additional information: Patient is a 41-year-old female who presents to the emergency department with left posterior knee pain. This has been present for the past month. Gradually getting worse. Worse with walking, better with rest. She states she feels like the back of the knee is swollen. Does not recall any specific injury. She states that her uncle of a bone cancer that started in his knee. No recent travel. No immobilization. No surgeries. Patient states that she does a lot of walking at work. She took Motrin without relief. 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 - Present Medications Home Medications: Ambulatory Orders Medication Instructions Recorded Confirmed metFORMIN [Glucophage] 500 mg PO BID 03/26/21 07/03/22 Ferrous Sulfate 325 mg PO DAILY 10/24/21 07/03/22 Ibuprofen [Motrin] 1 tablet PO Q8H PRN #30 tablet 11/15/21 07/03/22 Diltiazem HCl [Cardizem LA] 120 mg PO DAILY 06/29/22 07/03/22 Liraglutide [Victoza 2-Bebeto] 1.2 mg SQ DAILY 06/29/22 07/03/22 Medroxyprogesterone Acetate 10 mg PO DAILY 06/29/22 07/03/22 [Provera] lisinopriL [Zestril] 5 mg PO DAILY 06/29/22 07/03/22 methocarbamoL [Methocarbamol] 750 mg PO Q6HR PRN 06/29/22 07/03/22 oxyCODONE [Roxicodone] 5 mg PO Q4H PRN #12 tablet 07/03/22 Meloxicam [Mobic] 7.5 mg PO BID PRN #20 tablet 08/21/22 - Allergies Allergies/Adverse Reactions: Allergies Allergy/AdvReac Type Severity Reaction Status Date / Time No Known Drug Allergies Allergy Verified 08/21/22 15:36 - Social History Does the pt smoke?: Yes Smoking Status: Former smoker Does the pt drink ETOH?: Yes Does the pt have substance abuse?: No - Immunizations Immunizations are current?: Yes - POLST Patient has POLST: No PD ED PE NORMAL - Vitals Vital signs reviewed: Yes - General General: Alert and oriented X 3, No acute distress, Well developed/nourished - HEENT HEENT: PERRL, Moist mucous membranes - Neck Neck: Supple, no meningeal sign - Derm Derm: Warm and dry - Extremities Extremities: Other (Left knee - ACL, MCL, PCL, LCL are intact. No significant effusion. Mild tenderness in the posterior knee. Neurovascular intact. No significant bony tenderness or tenderness along the joint line.) - Neuro Neuro: Alert and oriented X 3 - Psych Psych: Normal mood, Normal affect Results - Vitals Vitals: Vital Signs - 24 hr 08/21/22 15:33 Temperature 36.0 C L Heart Rate 85 Respiratory 16 Rate Blood Pressure 141/91 H O2 Saturation 100 Oxygen O2 Source Room air - Rads (name of study) Left knee x-ray Relevant Findings:: Final report received, See rad report Left lower extremity duplex ultrasound Relevant Findings:: Final report received, See rad report PD Medical Decision Making - ED course Complexity details: reviewed results, re-evaluated patient, considered differential, d/w patient ED course: Patient with left knee pain of unclear etiology. No acute findings on x-ray or ultrasound. Possible meniscus injury? No significant effusion currently. We will trial on NSAIDs and have her follow-up with her PCP and/or orthopedics for further care. Patient can utilize bracing, ice and elevation. Patient counseled regarding signs and symptoms for which I believe and urgent re- evaluation would be necessary. Patient with good understanding of and agreement to plan and is comfortable going home at this time This document was made in part using voice recognition software. While efforts are made to proofread this document, sound alike and grammatical errors may occur. Departure - Departure Disposition: 01 Home, Self Care Clinical Impression: Knee pain, left Qualifiers: Chronicity: acute Qualified Code(s): M25.562 - Pain in left knee Condition: Good Instructions: ED Meniscal Injury Knee Poss, ED Knee Pain UKO Follow-Up: Orthopedic Care [Provider Group] your,doctor in 1 week [Other] Prescriptions: Meloxicam [Mobic] 7.5 mg PO BID PRN #20 tablet PRN Reason: Pain Comments: Please follow-up with your doctor for further care. Please return if you worsen. Your prescriptions were sent to [facility] in [place]. Your ultrasound and x-ray do not show any acute abnormalities today. Your doctor or the orthopedist may want to order an MRI to look at the cartilage within your knee. A neoprene brace may help as well. Ice the knee at home and elevate when p ossible. Discharge Date/Time: 08/21/22 17:35
--- NOTE | 2022-08-21 17:37 | XRAY Report ---
PROCEDURE: Knee 4 View LT INDICATIONS: knee pain, no injury TECHNIQUE: 3 views of the left knee(s) were acquired. COMPARISON: None. FINDINGS: Bones: No fractures or dislocations. No suspicious bony lesions. Soft tissues: No knee joint effusion. No suspicious soft tissue calcifications or masses. IMPRESSION: No acute bony abnormality. Reviewed by: Meir Jain MD on 08/21/2022 4:36 PM AKDT Approved by: Meir Jain MD on 08/21/2022 4:36 PM AKDT Station ID: [id number]
== END 2022-08-21 17:35 | disposition home or self-care (01) ==
LOC: ED 15:31
DX: M25.562 Pain in left knee (principal); E11.9 Type 2 diabetes mellitus without complications; Z79.84 Long term (current) use of oral hypoglycemic drugs; Z87.891 Personal history of nicotine dependence
CPT/HCPCS: 73564; 93971; 99283; 99284; A9270

== ENCOUNTER 2022-09-29 16:33 | Emergency (ER) | payer MEDICAID ==
--- OUTSIDE RECORDS SUMMARY | 2022-09-29 16:53 | EXTERNAL MEDICAL SUMMARY RPT | Continuity of Care Document ---
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 Role Phone Prasad Hare Unavailable Unavailable Allergies and Intolerances date description facility reaction severity (no date) No Known Drug Allergies [facility] (no ayah ction) (no severity) Problems date description facility 2022-09-02 00:00 Patient left without being seen [facility] Social History date description facility 2022-09-01 00:00 Never smoked tobacco (finding) [facility] Vital Signs date measurement value units 2022-09-01 00:00 BMI 30.7 kg/m2 2022-09-01 00:00 BP_diastolic 90 mmHg 2022-09-01 00:00 BP_systolic 177 mmHg 2022-09-01 00:00 heart_rate 110 /min 2022-09-01 00:00 height_metric 149.86 cm 2022-09-01 00:00 height_standard 59 in 2022-09-01 00:00 o2_saturation 99 % 2022-09-01 00:00 respiration_rate 16 /min 2022-09-01 00:00 temperature_metric 37.06 C 2022-09-01 00:00 temperature_standard 98.7 F 2022-09-01 00:00 weight_metric 68.94 kg 2022-09-01 00:00 weight_standard 151.99 lb
[2022-09-29 16:54] VITALS: BP 140/85; O2SAT 100
[2022-09-29] MEDS ORDERED: lidocaine 1% 20 ML MDV SUBQ ONE (18:14)
--- NOTE | 2022-09-29 18:28 | ED Physician Documentation ---
PD HPI UPPER EXT INJURY - Stated complaint Stated Complaint: LT THUMB LAC - Chief complaint Chief Complaint: Laceration - History obtained from History obtained from: Patient - History of Present Illness Location: Left, Finger (thumb) Type of injury: Laceration Where injury occurred: Work Timing - onset: Today Timing - duration: Minutes Timing - details: Abrupt onset, Still present Improved by: Rest, Immobilization Worsened by: Moving, Palpating Associated symptoms: No: Weakness, Numbness, Tingling Similar symptoms before: Diagnosis (laceration) Recently seen: Not recently seen - Additonal information Additional information: 41-year-old diabetic female 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 She is able to control the bleeding with direct pressure and comes in now for suturing. 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 - Present Medications Home Medications: Ambulatory Orders Medication Instructions Recorded Confirmed metFORMIN [Glucophage] 500 mg PO BID 03/26/21 09/26/22 Ferrous Sulfate 325 mg PO DAILY 10/24/21 09/26/22 Ibuprofen [Motrin] 1 tablet PO Q8H PRN #30 tablet 11/15/21 09/26/22 Diltiazem HCl [Cardizem LA] 120 mg PO DAILY 06/29/22 09/26/22 Liraglutide [Victoza 2-Bebeto] 1.2 mg SQ DAILY 06/29/22 09/26/22 Medroxyprogesterone Acetate 10 mg PO DAILY 06/29/22 09/26/22 [Provera] lisinopriL [Zestril] 5 mg PO DAILY 06/29/22 09/26/22 methocarbamoL [Methocarbamol] 750 mg PO Q6HR PRN 06/29/22 09/26/22 oxyCODONE [Roxicodone] 5 mg PO Q4H PRN #12 tablet 07/03/22 09/26/22 Meloxicam [Mobic] 7.5 mg PO BID PRN #20 tablet 08/21/22 09/26/22 - Allergies Allergies/Adverse Reactions: Allergies Allergy/AdvReac Type Severity Reaction Status Date / Time No Known Drug Allergies Allergy Verified 09/29/22 16:46 - Social History Does the pt smoke?: Yes Smoking Status: Former smoker Does the pt drink ETOH?: Yes Does the pt have substance abuse?: No - Immunizations Immunizations are current?: Yes - POLST Patient has POLST: No PD ED PE NORMAL - Vitals Vital signs reviewed: Yes (hypesrtensive ) - General General: No acute distress, Well developed/nourished - HEENT HEENT: Atraumatic, PERRL, EOMI - Respiratory Respiratory: No respiratory distress - Derm Derm: Normal color, Warm and dry, No rash - Extremities Extremities: No deformity, No edema, Other (Superficial laceration to the left thumb does not involve deeper structures there is no foreign material in the wound. Distal neurovascular components are intact) - Neuro Neuro: Alert and oriented X 3, sheet rock hanger 2-12 intact, No motor deficit, No sensory deficit, Normal speech Eye Opening: Spontaneous Motor: Obeys Commands Verbal: Oriented GCS Score: 15 - Psych Psych: Normal mood, Normal affect Results - Vitals Vitals: Vital Signs - 24 hr 09/29/22 16:46 Temperature 36.5 C Heart Rate 100 Respiratory 16 Rate Blood Pressure 140/85 H O2 Saturation 100 Oxygen O2 Source Room air Procedures - Laceration (location) Left thumb Wound type: Linear, Flap, Superficial Neurovascular status: Sensory intact, Motor intact, Vascular intact Anesthesia: Lidocaine 1% Wound preparation: Hibiclens, Irrigated copiously NS, Wound explored, To the base Skin layer closure: Nylon, Interrupted, Size #-0 - enter number (5-0), Sutures - enter # (3) Other: Patient tolerated well, No complications, Neurovascular intact, Dressing applied, Tetanus UTD PD Medical Decision Making - ED course Complexity details: considered differential, d/w patient ED course: 41-year-old diabetic female presents to the emergency department with a superficial laceration to the left thumb we were able to place sutures after anesthetization. The patient appeared quite anxious regarding all of the issues with her laceration. She developed heartburn and was administered a dose of Mylanta. Finger was sutured and she is up-to-date on her tetanus. Departure - Departure Disposition: 01 Home, Self Care Clinical Impression: Laceration of left thumb Qualifiers: Encounter type: initial encounter Damage to nail status: without damage Foreign body presence: without foreign body Qualified Code(s): S61.012A - Laceration without foreign body of left thumb without damage to nail, initial encounter Condition: Stable Instructions: ED Laceration Hand Follow-Up: Rea Garcia ARNP [Primary Care Provider] - Comments: Sutures will need to be removed in 7 days
[2022-09-29] MEDS ORDERED: MAG HYDROX/AL HYDROX/SIMETH 30 ML UDC PO STA (18:35)
== END 2022-09-29 19:08 | disposition home or self-care (01) ==
LOC: ED 16:33
DX: S61.012A Laceration without foreign body of left thumb without damage to nail, initial encounter (principal); W25.XXXA Contact with sharp glass, initial encounter; Y92.89 Other specified places as the place of occurrence of the external cause; Y99.0 Civilian activity done for income or pay; E11.9 Type 2 diabetes mellitus without complications; Z79.84 Long term (current) use of oral hypoglycemic drugs; Z79.899 Other long term (current) drug therapy; Z87.891 Personal history of nicotine dependence
CPT/HCPCS: 12001; 99282; A9270

== ENCOUNTER 2022-10-23 10:01 | Outpatient (CLI) | payer MEDICAID ==
[2022-10-23 12:32] LABS: BASOPHILS # (AUTO) 0.1 10^3/uL (0.0-0.1); BASOPHILS % (AUTO) 0.7 %; EOSINOPHILS # (AUTO) 0.1 10^3/uL (0.0-0.7); EOSINOPHILS % (AUTO) 1.7 %; HCT - HEMATOCRIT 47.5 % (37.0-47.0); HGB - HEMOGLOBIN 15.3 g/dL (12.0-16.0); LYMPHOCYTES # (AUTO) 2.1 10^3/uL (1.5-3.5); LYMPHOCYTES % (AUTO) 30.3 %; MEAN CORPUSCULAR HEMOGLOBIN 29.4 pg (27.0-31.0); MEAN CORPUSCULAR HGB CONC 32.2 g/dL (32.0-36.0); MEAN CORPUSCULAR VOLUME 91.2 fL (81.0-99.0); MEAN PLATELET VOLUME 11.6 fL (7.9-10.8); MONOCYTES # (AUTO) 0.5 10^3/uL (0.0-1.0); MONOCYTES % (AUTO) 7.5 %; NEUTROPHILS # (AUTO) 4.1 10^3/uL (1.5-6.6); NEUTROPHILS % (AUTO) 59.5 %; PLT - PLATELET COUNT 281 10^3/uL (130-450); RED BLOOD COUNT 5.21 10^6/uL (4.20-5.40); RED CELL DISTRIBUTION WIDTH 13.4 % (12.0-15.0); WHITE BLOOD COUNT 6.9 x10^3/uL (4.8-10.8)
[2022-10-23 13:14] LABS: CREATININE,URINE 221.2 mg/dL; ESTIMATED AVERAGE GLUCOSE 108 mg/dL (70-100); HEMOGLOBIN A1c% 5.4 % (4.27-6.07)
[2022-10-23 13:26] LABS: MICROALBUMIN,URINE > 225.0 mg/dL
== END 2022-10-23 10:02 | disposition home or self-care (01) ==
LOC: LAB.N 10:01
PROVIDERS: ATTEND Nurse Practitioner
DX: I10 Essential (primary) hypertension (principal); E78.5 Hyperlipidemia, unspecified; E11.8 Type 2 diabetes mellitus with unspecified complications; E07.9 Disorder of thyroid, unspecified
CPT/HCPCS: 36415; 80053; 80061; 82043; 82570; 83036; 83721; 84439; 84443; 85025

== ENCOUNTER 2022-10-30 08:54 | Outpatient (CLI) | payer MEDICAID ==
--- NOTE | 2022-10-31 09:51 | Mammography Report ---
BILATERAL DIGITAL SCREENING MAMMOGRAM 3D/2D: 10/30/2022 CLINICAL: Baseline exam. Routine screening. No prior exams were available for comparison. There are scattered areas of fibroglandular density in both breasts (category b / 25%-50% glandular t issue). No significant masses, calcifications, or other findings are seen in either breast. IMPRESSION: NEGATIVE There is no mammographic evidence of malignancy. A 1 year screening mammogram is recommended. Based on the Tyrer Cuzick model (a risk assessment model) the patients lifetime risk is 10.7% and he r 10 year risk is 1.4%. According to the ACR, ACS, and NCCN guidelines, an annual breast MRI exam julio c ng with mammogram is recommended if the patients lifetime risk is 20% or greater. This exam was interpreted at Station ID: [id number]. NOTE: For mammograms, a report in lay terms will be sent to the patient. Approximately 15% of breast malignancies will not be visualized mammographically. In the management of a palpable breast mass, a negative mammogram must not discourage biopsy of a clinically suspicious lesion. Electronically Signed By: Rachel walsh/daphnie:10/30/2022 16:02:34 letter sent: No_Letter ACR BI-RADS Category 1: Negative 3341F PARENCHYMAL PATTERN: (A) - The breast(s) demonstrate(s) scattered fibroglandular densities. BI-RADS CATEGORY: (1) - 1 Mammogram [id number] 1 year screening LATERALITY: (B)
== END 2022-10-30 08:55 | disposition home or self-care (01) ==
LOC: DI.N 08:54
PROVIDERS: ATTEND Nurse Practitioner
DX: Z12.31 Encounter for screening mammogram for malignant neoplasm of breast (principal)

== ENCOUNTER 2023-01-01 13:15 | Emergency (ER) | payer MEDICAID ==
[2023-01-01 13:28] VITALS: O2SAT 98
--- NOTE | 2023-01-01 17:00 | ED Physician Documentation ---
History of Present Illness - Stated complaint Stated Complaint: BILAT WRIST PX/SWELLING,NUMBNESS - Chief complaint Chief Complaint: Ext Problem - History obtained from History obtained from: Patient - Additonal information Additional information: 42-year-old female presents for bilateral wrist pain. Patient states that she has had issues with her hands and her wrist in the past and used to see a hand doctor in [place], however it has been several years since she last saw this hand doctor. Patient has been taking ibuprofen without significant relief in her symptoms. She notes swelling at the base of her wrists on the ventral side of her extremities. She states that occasionally her hands will go numb and she will drop things that she is holding. 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 Review of Systems Constitutional: denies: Fever, Chills Cardiac: denies: Chest pain / pressure, Palpitations, Calf pain Respiratory: denies: Dyspnea, Cough, Wheezing GI: denies: Abdominal Pain, Nausea, Vomiting Musculoskeletal: reports: Joint pain, Joint swelling. 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 - Present Medications Home Medications: Ambulatory Orders Medication Instructions Recorded Confirmed metFORMIN [Glucophage] 500 mg PO BID 03/26/21 09/26/22 Ferrous Sulfate 325 mg PO DAILY 10/24/21 09/26/22 Ibuprofen [Motrin] 1 tablet PO Q8H PRN #30 tablet 11/15/21 09/26/22 Diltiazem HCl [Cardizem LA] 120 mg PO DAILY 06/29/22 09/26/22 Liraglutide [Victoza 2-Bebeto] 1.2 mg SQ DAILY 06/29/22 09/26/22 Medroxyprogesterone Acetate 10 mg PO DAILY 06/29/22 09/26/22 [Provera] lisinopriL [Zestril] 5 mg PO DAILY 06/29/22 09/26/22 methocarbamoL [Methocarbamol] 750 mg PO Q6HR PRN 06/29/22 09/26/22 oxyCODONE [Roxicodone] 5 mg PO Q4H PRN #12 tablet 07/03/22 09/26/22 Meloxicam [Mobic] 7.5 mg PO BID PRN #20 tablet 08/21/22 09/26/22 - Allergies Allergies/Adverse Reactions: Allergies Allergy/AdvReac Type Severity Reaction Status Date / Time No Known Drug Allergies Allergy Verified 01/01/23 13:23 - Social History Does the pt smoke?: Yes Smoking Status: Former smoker Does the pt drink ETOH?: Yes Does the pt have substance abuse?: No - Immunizations Immunizations are current?: Yes - POLST Patient has POLST: No PD ED PE NORMAL - Vitals Vital signs reviewed: Yes - General General: Alert and oriented X 3, No acute distress, Well developed/nourished - HEENT HEENT: Atraumatic - Neck Neck: Supple, no meningeal sign - Cardiac Cardiac: RRR, Strong equal pulses - Respiratory Respiratory: No respiratory distress, Clear bilaterally - Abdomen Abdomen: Soft - Derm Derm: Normal color, Warm and dry, No rash - Extremities Extremities: No deformity, Other (using cellphone with both hands at bedside. Full ROM. Applications Manager strength 5/5 bilaterally) - Neuro Neuro: Alert and oriented X 3, hydrologic modeler 2-12 intact, No motor deficit, Normal speech - Psych Psych: Normal mood, Normal affect Results - Vitals Vitals: Vital Signs - 24 hr 01/01/23 13:23 Temperature 37.1 C Heart Rate 94 Respiratory 16 Rate Blood Pressure 140/86 H O2 Saturation 98 Oxygen O2 Source Room air PD Medical Decision Making - ED course Complexity details: reviewed results, re-evaluated patient, considered differential, d/w patient ED course: Well-appearing patient with worsening of chronic bilateral wrist pain. States that she will occasionally drop things that she is holding due to numbness and weakness in her hands, when I go to evaluate the patient she is using both of her hands and watching a video on her cell phone. Neurologically and vascular intact, question if this is carpal tunnel due to patient's endorsed history of repetitive movements at her job. Patient is reporting swelling of her wrist, there is a small amount of swelling on the ventral aspect of her wrist bilaterally. Will obtain x-rays, anticipate that patient will be discharged with referral back to her hand surgeon in [place]. X-rays negative for acute finding. Patient placed in bilateral wrist splints. RICE instructions counseled for pain relief. Patient advised to follow-up with her hand surgeon in [place] if she feels she needs injections. Departure - Departure Disposition: 01 Home, Self Care Clinical Impression: Wrist pain Qualifiers: Laterality: bilateral Qualified Code(s): M25.531 - Pain in right wrist; M25.532 - Pain in left wrist Condition: Stable Instructions: ED Carpal Tunnel Comments: He was seen today for bilateral wrist pain. Your x-rays were normal. I suspect that at least some of your pain is because of repetitive motion from your work and jobs. This may be carpal tunnel, however you will need to follow-up with the hand surgeon that you previously saw in [place]. Today you are placed in wrist splints. Please wear these for comfort and to help protect your wrist against further worsening of repetitive motion injury. Continue to take ibuprofen as needed for pain. You may also add Tylenol. Forms: PCP List
--- NOTE | 2023-01-01 17:21 | XRAY Report ---
PROCEDURE: Wrist 2 View BILAT INDICATIONS: BILAT PAIN, SWELLING TECHNIQUE: 2 views of the bilateral wrist were acquired. COMPARISON: None. FINDINGS: Bones: No fractures or dislocations. No suspicious bony lesions. No suspicious osseous erosions. No significant degenerative changes. Soft tissues: No suspicious soft tissue calcifications or masses. IMPRESSION: No acute bony abnormality. No suspicious osseous lesions or significant degenerative change. If there is continued clinical concern for pathology or occult fracture, consider follow-up imaging w ith repeat radiographs in 10-14 days and possible advanced imaging (CT, MRI, bone scan) if symptoms p ersist. Reviewed by: Duane Falk MD on 01/01/2023 5:19 PM PDT Approved by: Duane Falk MD on 01/01/2023 5:19 PM PDT Station ID: [id number]
[2023-01-01 17:45] VITALS: BP 132/78
== END 2023-01-01 17:38 | disposition home or self-care (01) ==
LOC: ED 13:15
DX: M25.532 Pain in left wrist (principal); M25.531 Pain in right wrist; Z87.891 Personal history of nicotine dependence
CPT/HCPCS: 99283

== ENCOUNTER 2023-02-08 11:01 | Outpatient (CLI) | payer MEDICAID ==
--- NOTE | 2023-02-12 15:31 | Ultrasound Report ---
LIMITED ULTRASOUND OF LEFT BREAST: 02/08/2023 CLINICAL: Palpable left breast lump and focal pain. Comparison is made to exam dated: 10/30/2022 mammogram - [facility]. Color flow ultrasound of the left breast 9 o'clock region was performed. [place] scale images of the re al-time examination were reviewed. There is an oval mass in the left breast at 9 o'clock middle depth 2 cm from the nipple. This oval m ass is hyperechoic with an echogenic boundary. This correlates as palpated and with mammography find ings. IMPRESSION: PROBABLY BENIGN The oval mass in the left breast is consistent with a hematoma and is probably benign. A follow-up u ltrasound in 6 months is recommended. This exam was interpreted at Station ID: [id number]. Electronically Signed By: Stalin Dover M.D. acr/:02/12/2023 15:17:36 Entry: - 02/12/2023 15:17:36 Ultrasound BI-RADS: 3 Probably benign BI-RADS CATEGORY: (3) - 3 Ultrasound [id number] 6 month follow-up LATERALITY: (B)
--- NOTE | 2023-02-12 15:31 | Mammography Report ---
UNILATERAL LEFT DIGITAL DIAGNOSTIC MAMMOGRAM 3D/2D WITH SPOT COMPRESSION: 02/08/2023 CLINICAL: Palpable left breast lump. Comparison is made to exam dated: 10/30/2022 mammogram - Located within [facility]. There are scattered areas of fibroglandular density in the left breast (category b / 25%-50% glandula r tissue). There is a new irregular high density asymmetry in the left breast at 9 o'clock anterior depth 2 cm f rom the nipple. No other significant masses or calcifications are seen in the breast. IMPRESSION: INCOMPLETE: NEEDS ADDITIONAL IMAGING EVALUATION The new irregular high density asymmetry in the left breast is consistent with a hematoma and is inde terminate. An ultrasound is recommended. Based on the Tyrer Cuzick model (a risk assessment model) the patients lifetime risk is 10.9% and he r 10 year risk is 1.4%. According to the ACR, ACS, and NCCN guidelines, an annual breast MRI exam julio c ng with mammogram is recommended if the patients lifetime risk is 20% or greater. This exam was interpreted at Station ID: [id number]. NOTE: For mammograms, a report in lay terms will be sent to the patient. Approximately 15% of breast malignancies will not be visualized mammographically. In the management of a palpable breast mass, a negative mammogram must not discourage biopsy of a clinically suspicious lesion. Electronically Signed By: Stalin Dover M.D. acr/:02/12/2023 15:18:18 Entry: - 02/12/2023 15:18:18 ACR BI-RADS Category 0: Incomplete 3340F PARENCHYMAL PATTERN: (A) - The breast(s) demonstrate(s) scattered fibroglandular densities. BI-RADS CATEGORY: (0) - 0 Ultrasound [id number] Immediate follow-up LATERALITY: (L)
== END 2023-02-08 11:02 | disposition home or self-care (01) ==
LOC: DI 11:01
PROVIDERS: ATTEND Family Medicine
DX: N63.25 Unspecified lump in the left breast, overlapping quadrants (principal); N64.4 Mastodynia

== ENCOUNTER 2023-04-02 13:05 | Outpatient (CLI) | payer MEDICAID ==
[2023-04-02 18:41] LABS: BASOPHILS % (AUTO) 0.5 %; EOSINOPHILS # (AUTO) 0.1 10^3/uL (0.0-0.7); HCT - HEMATOCRIT 41.5 % (37.0-47.0); HGB - HEMOGLOBIN 13.1 g/dL (12.0-16.0); LYMPHOCYTES # (AUTO) 2.2 10^3/uL (1.5-3.5); LYMPHOCYTES % (AUTO) 26.6 %; MEAN CORPUSCULAR HEMOGLOBIN 28.7 pg (27.0-31.0); MEAN CORPUSCULAR HGB CONC 31.6 g/dL (32.0-36.0); MEAN CORPUSCULAR VOLUME 90.8 fL (81.0-99.0); MONOCYTES # (AUTO) 0.6 10^3/uL (0.0-1.0); MONOCYTES % (AUTO) 7.2 %; NEUTROPHILS # (AUTO) 5.3 10^3/uL (1.5-6.6); NEUTROPHILS % (AUTO) 64.5 %; PLT - PLATELET COUNT 282 10^3/uL (130-450); RED BLOOD COUNT 4.57 10^6/uL (4.20-5.40); RED CELL DISTRIBUTION WIDTH 13.4 % (12.0-15.0); WHITE BLOOD COUNT 8.3 x10^3/uL (4.8-10.8)
[2023-04-02 19:40] LABS: ALBUMIN 4.1 g/dL (3.2-5.5); ALBUMIN/GLOBULIN RATIO 1.5 (1.0-2.2); BILIRUBIN,TOTAL 0.6 mg/dL (0.2-1.0); CALCIUM 9.5 mg/dL (8.5-10.3); CREATININE 0.8 mg/dL (0.6-1.3); POTASSIUM 3.5 mmol/L (3.5-4.5); TOTAL PROTEIN 6.8 g/dL (6.4-8.9)
[2023-04-02 20:38] LABS: FERRITIN 147.7 ng/mL (11.0-306.8); THYROID STIMULATING HORMONE 4.36 uIU/mL (0.34-5.60)
[2023-04-02 22:05] LABS: ESTIMATED AVERAGE GLUCOSE 105 mg/dL (70-100); HEMOGLOBIN A1c% 5.3 % (4.27-6.07)
== END 2023-04-02 13:06 | disposition home or self-care (01) ==
LOC: LAB.N 13:05
PROVIDERS: ATTEND Nurse Practitioner
DX: I10 Essential (primary) hypertension (principal); D64.9 Anemia, unspecified; E11.8 Type 2 diabetes mellitus with unspecified complications; E07.9 Disorder of thyroid, unspecified; R53.83 Other fatigue; R00.2 Palpitations
CPT/HCPCS: 36415; 80053; 82728; 83036; 83540; 84439; 84443; 84466; 85025

== ENCOUNTER 2023-05-09 15:05 | Outpatient (CLI) | payer MEDICAID | END 2023-05-09 23:59 | disposition short-term general hospital (02) | LOC: EMS 15:05 | DX: R51.9 Headache, unspecified (principal); R07.89 Other chest pain; R68.84 Jaw pain; R00.0 Tachycardia, unspecified; H53.8 Other visual disturbances; F41.9 Anxiety disorder, unspecified | CPT/HCPCS: A0425; A0427; A0999 ==

== ENCOUNTER 2023-05-30 08:00 | Outpatient (CLI) | payer MEDICAID ==
[2023-05-30 12:48] LABS: BILIRUBIN,URINE NEGATIVE (NEGATIVE); GLUCOSE, URINE (UA) NEGATIVE (NEGATIVE); KETONES,URINE (UA) NEGATIVE (NEGATIVE); LEUKOCYTE ESTERASE, URINE NEGATIVE (NEGATIVE); NITRITE,URINE NEGATIVE (NEGATIVE); OCCULT BLOOD,URINE LARGE (NEGATIVE); PROTEIN,URINE 30 mg/dL (NEGATIVE); UROBILINOGEN,URINE 0.2 (NORMAL) E.U./dL (NORMAL)
[2023-05-30 13:17] LABS: BACTERIA,URINE Few /HPF (None Seen); CLARITY,URINE CLEAR (CLEAR); SQUAMOUS EPITHELIAL CELL,UR FEW Squamous (<= Few); WBC,URINE 0-3 /HPF (0-5)
== END 2023-05-30 23:59 | disposition home or self-care (01) ==
LOC: LAB.WCP 08:00
PROVIDERS: ATTEND Nurse Practitioner
DX: R31.9 Hematuria, unspecified (principal)
CPT/HCPCS: 81001

== ENCOUNTER 2023-06-27 16:20 | Outpatient (CLI) | payer MEDICAID ==
[2023-06-27 21:41] LABS: BILIRUBIN,URINE NEGATIVE (NEGATIVE); GLUCOSE, URINE (UA) NEGATIVE (NEGATIVE); KETONES,URINE (UA) NEGATIVE (NEGATIVE); LEUKOCYTE ESTERASE, URINE NEGATIVE (NEGATIVE); NITRITE,URINE NEGATIVE (NEGATIVE); OCCULT BLOOD,URINE LARGE (NEGATIVE); PH,URINE 6.5 PH (5.0-7.5); PROTEIN,URINE 100 mg/dL (NEGATIVE); UROBILINOGEN,URINE 0.2 (NORMAL) E.U./dL (NORMAL)
[2023-06-27 22:03] LABS: CLARITY,URINE SL. CLOUDY (CLEAR)
[2023-06-27 22:04] LABS: BACTERIA,URINE None Seen /HPF (None Seen); SQUAMOUS EPITHELIAL CELL,UR MOD Squamous (<= Few); WBC,URINE 0-3 /HPF (0-5)
== END 2023-06-27 16:21 | disposition home or self-care (01) ==
LOC: LAB.N 16:20
PROVIDERS: ATTEND Nurse Practitioner
DX: R31.9 Hematuria, unspecified (principal)
CPT/HCPCS: 81001; 87086

== ENCOUNTER 2023-08-19 08:00 | Outpatient (CLI) | payer MEDICAID ==
[2023-08-19 18:03] LABS: BILIRUBIN,URINE NEGATIVE (NEGATIVE); GLUCOSE, URINE (UA) NEGATIVE (NEGATIVE); KETONES,URINE (UA) NEGATIVE (NEGATIVE); LEUKOCYTE ESTERASE, URINE NEGATIVE (NEGATIVE); NITRITE,URINE NEGATIVE (NEGATIVE); OCCULT BLOOD,URINE LARGE (NEGATIVE); PROTEIN,URINE >=300 mg/dL (NEGATIVE); UROBILINOGEN,URINE 0.2 (NORMAL) E.U./dL (NORMAL)
[2023-08-19 18:14] LABS: AMORPHOUS SEDIMENT,UR Marked /LPF; BACTERIA,URINE Few /HPF (None Seen); CLARITY,URINE CLOUDY (CLEAR); MUCUS,URINE Moderate Strands; SQUAMOUS EPITHELIAL CELL,UR FEW Squamous (<= Few); WBC,URINE 0-3 /HPF (0-5)
[2023-08-20 02:51] LABS: CREATININE,URINE 212.4 mg/dL
[2023-08-20 03:23] LABS: MICROALBUMIN,URINE > 225.0 mg/dL
== END 2023-08-19 23:59 | disposition home or self-care (01) ==
LOC: LAB.N 08:00
PROVIDERS: ATTEND Nurse Practitioner
DX: E11.9 Type 2 diabetes mellitus without complications (principal); R07.9 Chest pain, unspecified; R31.9 Hematuria, unspecified
CPT/HCPCS: 81001; 82043; 82570; 87086

== ENCOUNTER 2023-08-20 08:38 | Outpatient (CLI) | payer MEDICAID ==
[2023-08-20 11:55] LABS: BASOPHILS # (AUTO) 0.1 10^3/uL (0.0-0.1); BASOPHILS % (AUTO) 0.6 %; EOSINOPHILS # (AUTO) 0.1 10^3/uL (0.0-0.7); EOSINOPHILS % (AUTO) 1.7 %; HCT - HEMATOCRIT 44.7 % (37.0-47.0); HGB - HEMOGLOBIN 13.8 g/dL (12.0-16.0); LYMPHOCYTES % (AUTO) 25.1 %; MEAN CORPUSCULAR HEMOGLOBIN 27.7 pg (27.0-31.0); MEAN CORPUSCULAR HGB CONC 30.9 g/dL (32.0-36.0); MEAN CORPUSCULAR VOLUME 89.8 fL (81.0-99.0); MEAN PLATELET VOLUME 10.8 fL (7.9-10.8); MONOCYTES # (AUTO) 0.7 10^3/uL (0.0-1.0); MONOCYTES % (AUTO) 8.4 %; NEUTROPHILS # (AUTO) 5.1 10^3/uL (1.5-6.6); PLT - PLATELET COUNT 281 10^3/uL (130-450); RED BLOOD COUNT 4.98 10^6/uL (4.20-5.40); RED CELL DISTRIBUTION WIDTH 13.5 % (12.0-15.0)
[2023-08-20 12:06] LABS: ALBUMIN 3.9 g/dL (3.2-5.5); ALBUMIN/GLOBULIN RATIO 1.4 (1.0-2.2); BILIRUBIN,TOTAL 0.9 mg/dL (0.2-1.0); CALCIUM 9.5 mg/dL (8.5-10.3); CREATININE 0.7 mg/dL (0.6-1.3); TOTAL PROTEIN 6.6 g/dL (6.4-8.9)
[2023-08-20 12:21] LABS: THYROID STIMULATING HORMONE 4.62 uIU/mL (0.34-5.60)
[2023-08-20 12:26] LABS: FERRITIN 91.7 ng/mL (11.0-306.8)
[2023-08-20 12:27] LABS: CREATININE,URINE 133.6 mg/dL
[2023-08-20 12:41] LABS: MICROALBUM/CREATININE RATIO,UR 1481.3 ug/mg (<30.0); MICROALBUMIN,URINE 197.9 mg/dL
[2023-08-20 12:45] LABS: ESTIMATED AVERAGE GLUCOSE 108 mg/dL (70-100); HEMOGLOBIN A1c% 5.4 % (4.27-6.07)
== END 2023-08-20 08:39 | disposition home or self-care (01) ==
LOC: LAB.N 08:38
PROVIDERS: ATTEND Nurse Practitioner
DX: I10 Essential (primary) hypertension (principal); R07.9 Chest pain, unspecified; E11.9 Type 2 diabetes mellitus without complications; D64.9 Anemia, unspecified; E07.9 Disorder of thyroid, unspecified; R31.9 Hematuria, unspecified
CPT/HCPCS: 36415; 80053; 82043; 82570; 82728; 83036; 83540; 84443; 84466; 85025; 87086

== ENCOUNTER 2023-08-26 08:00 | Outpatient (CLI) | payer MEDICAID ==
[2023-08-26 12:17] LABS: CREATININE,URINE 70.7 mg/dL
== END 2023-08-26 23:59 | disposition home or self-care (01) ==
LOC: LAB.R 08:00
PROVIDERS: ATTEND Nurse Practitioner
DX: R31.9 Hematuria, unspecified (principal); R80.9 Proteinuria, unspecified
CPT/HCPCS: 81599; 82570

== ENCOUNTER 2023-08-28 09:03 | Outpatient (CLI) | payer MEDICAID ==
--- NOTE | 2023-08-29 09:39 | Ultrasound Report ---
LIMITED ULTRASOUND OF LEFT BREAST: 08/28/2023 CLINICAL: Patient returns for a 6 month follow up of the left breast. Comparison is made to exams dated: 02/08/2023 ultrasound, 02/08/2023 mammogram, and 10/30/2022 mammog [facility]. Color flow and real-time ultrasound of the left breast 9 o'clock region were performed. [place] scale images of the real-time examination were reviewed. There is a benign 0.3 cm x 0.4 cm x 0.3 cm oval mass in the left breast at 9 o'clock middle depth 2 c m from the nipple. This oval mass is hyperechoic with an echogenic boundary. This abnormality is de creased in size and correlates as palpated. IMPRESSION: BENIGN There is no sonographic evidence of malignancy. The 0.3 cm x 0.4 cm x 0.3 cm oval mass in the left breast resembles an oil cyst and is benign. This is decreased. Return to annual mammogram screening schedule is recommended. Clinical followup recommended. If thi s becomes larger or more symptomatic, diagnostic mammogram and ultrasound can be repeated. This exam was interpreted at Station ID: [id number]. Electronically Signed By: Garfield Mora M.D. /:08/28/2023 09:32:44 letter sent: No_Letter Ultrasound BI-RADS: 2 Benign BI-RADS CATEGORY: (2) - 2 Mammogram [id number] return to screening LATERALITY: (B)
== END 2023-08-28 09:04 | disposition home or self-care (01) ==
LOC: DI 09:03
PROVIDERS: ATTEND Surgery
DX: R92.8 Other abnormal and inconclusive findings on diagnostic imaging of breast (principal); N63.25 Unspecified lump in the left breast, overlapping quadrants

== ENCOUNTER 2023-10-02 20:22 | Emergency (ER) | payer MEDICAID, OTHER ==
--- NOTE | 2023-10-02 20:30 | ED Physician Documentation ---
PD HPI SKIN - Stated complaint Stated Complaint: RASH - Chief complaint Chief Complaint: Allergic Rx - Additional information Additional information: 42-year-old male with history of arrhythmias, type 2 diabetes presents emergency department for chest rash. Patient says that she has been having a heart monitor on now for about a week, Patient has no known history of anaphylaxis or allergic reactions. Patient says that she is very itchy in her chest the itching mostly happens at night she has erythema to her chest with multiple scratch crespo. She has not taken anything for the itching she has never had a Holter monitor on her chest before has no known history of reaction to adhesives in the past. PD PAST MEDICAL HISTORY - Past Medical History Past Medical History: Yes Cardiovascular: Arrhythmia Respiratory: None Neuro: None Endocrine/Autoimmune: Type 2 diabetes GI: None PROCUREMENT SERVICES MANAGER: Other : None HEENT: None Psych: None Musculoskeletal: None Derm: None - Past Surgical History Past Surgical History: Yes /PROCUREMENT SERVICES MANAGER: Other - Present Medications Home Medications: Ambulatory Orders Medication Instructions Recorded Confirmed metFORMIN [Glucophage] 500 mg PO BID 03/26/21 04/05/23 Ferrous Sulfate 325 mg PO DAILY 10/24/21 04/05/23 Ibuprofen [Motrin] 1 tablet PO Q8H PRN #30 tablet 11/15/21 04/05/23 Liraglutide [Victoza 2-Bebeto] 1.2 mg SQ DAILY 06/29/22 04/05/23 Medroxyprogesterone Acetate 10 mg PO DAILY 06/29/22 04/05/23 [Provera] dilTIAZem HCL [Cardizem LA] 120 mg PO DAILY 06/29/22 04/05/23 lisinopriL [Zestril] 5 mg PO DAILY 06/29/22 04/05/23 methocarbamoL [Methocarbamol] 750 mg PO Q6HR PRN 06/29/22 04/05/23 oxyCODONE [Roxicodone] 5 mg PO Q4H PRN #12 tablet 07/03/22 04/05/23 Meloxicam [Mobic] 7.5 mg PO BID PRN #20 tablet 08/21/22 04/05/23 hydrOXYzine pamoate [Hydroxyzine 25 mg PO TID PRN #15 cap 10/02/23 Pamoate] - Allergies Allergies/Adverse Reactions: Allergies Allergy/AdvReac Type Severity Reaction Status Date / Time No Known Drug Allergies Allergy Verified 10/02/23 20:26 - Social History Does the pt smoke?: Yes Smoking Status: Current every day smoker Does the pt drink ETOH?: Yes Does the pt have substance abuse?: No - Immunizations Immunizations are current?: Yes - POLST Patient has POLST: No PD ED PE NORMAL - Vitals Vital signs reviewed: Yes - General General: Alert and oriented X 3, No acute distress, Well developed/nourished - HEENT HEENT: Pharynx benign - Cardiac Cardiac: RRR - Respiratory Respiratory: No respiratory distress - Derm Derm: Other (Erythema to chest pruritis noted, no vesicular lesions no defined borders. ) Results - Vitals Vitals: Vital Signs - 24 hr 10/02/23 21:11 Heart Rate 98 Respiratory 16 Rate Blood Pressure 147/97 H O2 Saturation 99 Oxygen O2 Source Room air PD Medical Decision Making - ED course ED course: 42-year-old female presents emergency department for rash to upper chest surrounding adhesive where patient has a Holter monitor on. Patient has no known history of reaction to adhesive she is told that the only way to get rid o f this rash is unfortunately to remove the Holter monitor as this is what is currently causing the pruritus and discomfort. She does not appear to be having difficulty breathing no angioedema no nausea or vomiting no hypotension no other signs of anaphylaxis. Patient removed Holter monitor she is told to follow-up with her doctor who ordered the Holter monitor and asked for a different brand of adhesives as they do make sometimes specialty tape for people who have sensitivities to adhesions. She was told to apply hydroxyzine on her chest which is ryfp-cet-gcvnaln and she was given prescription of hydroxyzine to help with the itching she was also given a dose of hydroxyzine and Zyrtec here in the emergency department. Return precautions given all questions answered patient told to follow-up with her primary care provider safer discharge at this time. Departure - Departure Disposition: 01 Home, Self Care Clinical Impression: Contact dermatitis Qualifiers: Contact dermatitis type: allergic Contact dermatitis trigger: adhesive Qualified Code(s): L23.1 - Allergic contact dermatitis due to adhesives Instructions: Contact Dermatitis Prescriptions: hydrOXYzine pamoate [Hydroxyzine Pamoate] 25 mg PO TID PRN #15 cap PRN Reason: Itching Comments: Thank you for trusting us with your care your itching should significantly improve now that you have remove the adhesive. Please let your primary care provider or jewelry bench worker know that you are not able to tolerate this adhesive and sometimes they are able to give you different types of ultra monitors with special adhesive people do better with you have sensitivities. You can buy haji-tfi-zhaupcl hydrocortisone topical cream to apply to the rash to help with itching. I would consider taking a Zyrtec daily until the rash goes away I have also sent a prescription of hydroxyzine to help with itching that you can take up to 3 times a day as needed [facility] Please come back and if you are having any shortness of breath difficulty breathing or any other concerning emergent symptoms. Forms: PCP List Discharge Date/Time: 10/02/23 21:11
[2023-10-02 20:33] VITALS: BP 147/97; O2SAT 99
[2023-10-02] MEDS: CETIRIZINE 10 MG TABLET PO STA (21:06)
[2023-10-02] MEDS: hydrOXYzine PAMOATE 25 MG CAPSULE PO STA (21:06)
== END 2023-10-02 21:11 | disposition home or self-care (01) ==
LOC: ED 20:22
DX: L23.1 Allergic contact dermatitis due to adhesives (principal); F17.200 Nicotine dependence, unspecified, uncomplicated; Z95.811 Presence of heart assist device
CPT/HCPCS: 99283; A9270

== ENCOUNTER 2023-11-20 13:43 | Emergency (ER) | payer MEDICAID ==
[2023-11-20 14:24] LABS: BASOPHILS % (AUTO) 0.4 %; EOSINOPHILS # (AUTO) 0.1 10^3/uL (0.0-0.7); EOSINOPHILS % (AUTO) 0.7 %; HCT - HEMATOCRIT 42.2 % (37.0-47.0); HGB - HEMOGLOBIN 13.7 g/dL (12.0-16.0); LYMPHOCYTES # (AUTO) 2.4 10^3/uL (1.5-3.5); LYMPHOCYTES % (AUTO) 24.5 %; MEAN CORPUSCULAR HEMOGLOBIN 28.4 pg (27.0-31.0); MEAN CORPUSCULAR HGB CONC 32.5 g/dL (32.0-36.0); MEAN CORPUSCULAR VOLUME 87.4 fL (81.0-99.0); MEAN PLATELET VOLUME 10.4 fL (7.9-10.8); MONOCYTES # (AUTO) 0.9 10^3/uL (0.0-1.0); MONOCYTES % (AUTO) 9.2 %; NEUTROPHILS # (AUTO) 6.4 10^3/uL (1.5-6.6); PLT - PLATELET COUNT 294 10^3/uL (130-450); RED BLOOD COUNT 4.83 10^6/uL (4.20-5.40); RED CELL DISTRIBUTION WIDTH 13.4 % (12.0-15.0); WHITE BLOOD COUNT 9.8 x10^3/uL (4.8-10.8)
[2023-11-20 14:32] LABS: BILIRUBIN,URINE NEGATIVE (NEGATIVE); GLUCOSE, URINE (UA) NEGATIVE (NEGATIVE); KETONES,URINE (UA) NEGATIVE (NEGATIVE); LEUKOCYTE ESTERASE, URINE NEGATIVE (NEGATIVE); NITRITE,URINE NEGATIVE (NEGATIVE); OCCULT BLOOD,URINE LARGE (NEGATIVE); PROTEIN,URINE 100 mg/dL (NEGATIVE); UROBILINOGEN,URINE 0.2 (NORMAL) E.U./dL (NORMAL)
[2023-11-20 14:37] LABS: CLARITY,URINE SL. CLOUDY (CLEAR)
[2023-11-20 14:44] LABS: ALBUMIN/GLOBULIN RATIO 1.3 (1.0-2.2); BILIRUBIN,TOTAL 0.7 mg/dL (0.2-1.0); CALCIUM 9.3 mg/dL (8.5-10.3); CREATININE 0.7 mg/dL (0.6-1.3); POTASSIUM 3.7 mmol/L (3.5-4.5)
[2023-11-20 14:44] LABS: BACTERIA,URINE Moderate /HPF (None Seen); SQUAMOUS EPITHELIAL CELL,UR FEW Squamous (<= Few)
[2023-11-20] MEDS ORDERED: iohexoL-300 100 ML VIAL ONE (16:59)
[2023-11-20] MEDS: iohexoL-300 100 ML VIAL IVP ONE (18:10)
--- NOTE | 2023-11-20 18:29 | CT Report ---
PROCEDURE: Abdomen/Pelvis W INDICATIONS: R flank pain CONTRAST: 100ml [id number] TECHNIQUE: After the administration of intravenous contrast, a CT scan of the abdomen and pelvis was performed. Images were recorded and evaluated at appropriate window settings. Reformats: coronal and sagittal. F or radiation dose reduction, the following was used: automated exposure control, adjustment of mA and /or kV according to patient size. COMPARISON: CT abdomen and pelvis without contrast 07/11/2022 FINDINGS: Image quality: Diagnostic. Lower chest: Unremarkable. Liver: No solid mass. Gallbladder: No radiopaque stones or wall thickening. Biliary tree: No intrahepatic or extrahepatic dilation, accounting for age. Spleen: No splenomegaly. Pancreas: No pancreatic ductal dilation. Adrenals: No adrenal nodule. Kidneys and ureters: No hydronephrosis. No renal cystic lesion which requires follow up. No solid mas s. Stomach, bowel and peritoneum: No gastric or small bowel dilation. No abnormal wall thickening. No pa thologic free fluid. Small hiatal hernia Lymph nodes: No central or retroperitoneal adenopathy. Vessels: No infrarenal aortic aneurysm. Patent portal vein. PELVIS Reproductive organs: Unremarkable. Bladder: No abnormal wall thickening, accounting for underdistention. Pelvic lymph nodes: No pelvic adenopathy by size criteria. Bones: No acute fracture or dislocation. Unchanged and mildly scalloped appearance of the inner table of the pubic symphysis (2/135). Mild bilateral sacroiliac joint osteophytes or arthritis. Other: No significant ventral or inguinal hernia. IMPRESSION: 1.No CT evidence of obstructive urolithiasis or hydronephrosis. 2.Nonspecific finding of scalloping along the inner table of the pubic symphysis. This finding may re present sequelae of multiparity, osteitis pubis, or possibly hyperparathyroidism. Reviewed by: Lexx Clemente MD on 11/20/2023 6:27 PM PDT Approved by: Lexx Clemente MD on 11/20/2023 6:27 PM PDT Station ID: [id number]
--- NOTE | 2023-11-20 18:50 | ED Physician Documentation ---
History of Present Illness - Stated complaint Stated Complaint: BACK PX - Chief complaint Chief Complaint: Back Pain - History obtained from History obtained from: Patient - History of Present Illness Timing: Other (5 months) Pain level max: 8 Pain level now: 8 - Additonal information Additional information: Patient is a 43-year-old female who presents to the emergency department complaining of right flank pain for the past 5 months. She states that it is worse with movement, nothing makes it better. States that Motrin and Tylenol do not help. She has not talked to her primary care provider about any pain medication. She states that she was told she has protein in her urine and a swollen kidney. She is awaiting a referral to nephrology. No dysuria or urinary symptoms. No fevers. No chills. Denies any possibility of . No IV drug use. Review of Systems Constitutional: denies: Fever, Chills Respiratory: denies: Cough GI: denies: Nausea, Vomiting, Diarrhea Skin: denies: Rash Musculoskeletal: denies: Neck pain, Back pain Neurologic: denies: Headache PD PAST MEDICAL HISTORY - Past Medical History Past Medical History: Yes Cardiovascular: Arrhythmia Respiratory: None Neuro: None Endocrine/Autoimmune: Type 2 diabetes GI: None DAYCARE PROVIDER: Other : Other HEENT: None Psych: None Musculoskeletal: None Derm: None Other Past Medical History: PROTEINURIA.... - Past Surgical History Past Surgical History: Yes /DAYCARE PROVIDER: Other - Present Medications Home Medications: Ambulatory Orders Medication Instructions Recorded Confirmed metFORMIN [Glucophage] 500 mg PO BID 03/26/21 10/14/23 Liraglutide [Victoza 2-Bebeto] 1.2 mg SQ DAILY 06/29/22 10/14/23 dilTIAZem HCL [Cardizem LA] 120 mg PO DAILY 06/29/22 10/14/23 lisinopriL [Zestril] 5 mg PO DAILY 06/29/22 10/14/23 hydrOXYzine pamoate [Hydroxyzine 25 mg PO TID PRN #15 cap 10/02/23 10/14/23 Pamoate] Cefpodoxime Proxetil [Vantin] 100 mg PO Q12H #10 tablet 11/20/23 HYDROcod/ACETAM 5/325 [[place] 5/325] 1 - 2 ea PO Q6H PRN #14 tablet 11/20/23 - Allergies Allergies/Adverse Reactions: Allergies Allergy/AdvReac Type Severity Reaction Status Date / Time No Known Drug Allergies Allergy Verified 10/02/23 20:26 - Social History Does the pt smoke?: Yes Smoking Status: Current every day smoker Does the pt drink ETOH?: Yes Does the pt have substance abuse?: No - Immunizations Immunizations are current?: Yes - POLST Patient has POLST: No PD ED PE NORMAL - Vitals Vital signs reviewed: Yes - General General: Alert and oriented X 3, No acute distress - HEENT HEENT: Moist mucous membranes - Neck Neck: Supple, no meningeal sign - Cardiac Cardiac: RRR, Strong equal pulses - Respiratory Respiratory: No respiratory distress, Clear bilaterally - Abdomen Abdomen: Soft, Non tender, Non distended - Back Back: No spinal TTP, Other (No midline tenderness to palpation or percussion. No step-off or deformity. There is tenderness along the right paraspinal muscles, mid thoracic to mid lumbar. No CVA tenderness.) - Derm Derm: Warm and dry - Extremities Extremities: No edema, No calf tenderness / cord - Neuro Neuro: Alert and oriented X 3, No motor deficit, No sensory deficit, Other (Normal bilateral lower extremity patellar and ankle jerk reflexes. Normal great toe extension bilaterally. no saddle anesthesia) - Psych Psych: Normal mood, Normal affect Results - Vitals Vitals: Vital Signs - 24 hr 11/20/23 11/20/23 11/20/23 13:53 16:00 18:58 Temperature 36.9 C Heart Rate 105 H 96 88 Respiratory 16 20 Rate Blood Pressure 119/89 H 110/70 146/99 H O2 Saturation 99 98 100 Oxygen O2 Source Room air - Labs Labs: Laboratory Tests 11/20/23 11/20/23 11/20/23 14:00 14:19 14:19 WBC 9.8 RBC 4.83 Hgb 13.7 Hct 42.2 MCV 87.4 MCH 28.4 MCHC 32.5 RDW 13.4 Plt Count 294 MPV 10.4 Neut # (Auto) 6.4 Lymph # (Auto) 2.4 [place] # (Auto) 0.9 Eos # (Auto) 0.1 Baso # (Auto) 0.0 Absolute Nucleated RBC 0.00 Nucleated RBC % 0.0 Sodium 140 Potassium 3.7 Chloride 107 Carbon Dioxide 26 Anion Gap 7.0 BUN 14 Creatinine 0.7 Estimated GFR (MDRD) 92 Glucose 83 Calcium 9.3 Total Bilirubin 0.7 AST 19 ALT 12 Alkaline Phosphatase 58 Total Protein 7.0 Albumin 4.0 Globulin 3.0 Albumin/Globulin Ratio 1.3 Lipase 28 Urine Color YELLOW Urine Clarity SL. CLOUDY Urine pH 6.0 Ur Specific [place] 1.025 Urine Protein 100 H Urine Glucose (UA) NEGATIVE Urine Ketones NEGATIVE Urine Occult Blood LARGE H Urine Nitrite NEGATIVE Urine Bilirubin NEGATIVE Urine Urobilinogen 0.2 (NORMAL) Ur Leukocyte Esterase NEGATIVE Urine RBC 11-25 H Urine WBC 4-5 Ur Squamous Epith Cells FEW Squamous Urine Bacteria Moderate H Ur Microscopic Review INDICATED Urine Culture Comments NOT INDICATED - Rads (name of study) CT abdomen pelvis Relevant Findings:: Final report received, See rad report PD Medical Decision Making - ED course Complexity details: reviewed results, re-evaluated patient, considered differential, d/w patient ED course: Patient complains of back and flank pain for the past 5 months. Possible UTI on urinalysis, will treat with antibiotics. Suspect this is more musculoskeletal than renal in origin. Will place on pain medication for home. No evidence of cauda equina, epidural abscess. Normal neurological exam. Normal gait. Recommend that she follow-up with her doctor for further care. Has mild proteinuria. Patient counseled regarding signs and symptoms for which I believe and urgent re-evaluation would be necessary. Patient with good understanding of and agreement to plan and is comfortable going home at this time This document was made in part using voice recognition software. While efforts are made to proofread this document, sound alike and grammatical errors may occur. Departure - Departure Disposition: 01 Home, Self Care Clinical Impression: Right flank pain Back pain Qualifiers: Back pain location: back pain in unspecified location Chronicity: acute Back pain laterality: bilateral Qualified Code(s): M54.9 - Dorsalgia, unspecified UTI (urinary tract infection) Qualifiers: Urinary tract infection type: acute cystitis Hematuria presence: with hematuria Qualified Code(s): N30.01 - Acute cystitis with hematuria Condition: Good Instructions: ED Neck Back Pain General, ED UTI Cystitis Female Follow-Up: Rea Garcia ARNP [Primary Care Provider] - Within 1 week Prescriptions: HYDROcod/ACETAM 5/325 [[place] 5/325] 1 - 2 ea PO Q6H PRN #14 tablet PRN Reason: Pain Cefpodoxime Proxetil [Vantin] 100 mg PO Q12H #10 tablet Comments: Your CT scan does not show any acute abnormalities. Your laboratory testing does not show any significant kidney abnormalities other than mild proteinuria, 100. Your doctor may want to perform a 24-hour urine collection to see your total protein excreted. We will place you on pain medication for your back pain. Please follow-up with your doctor for further care and return if you worsen. I am prescribing a short course of narcotic pain medication for you. These are potentially dangerous and addictive medications that should be used carefully. These medications may constipate you. Take an pyex-bif-doajtie stool softener (docusate) twice daily with plenty of water while taking these medications. If you go 24 hours without a bowel movement, take xgsx-lns-pacqgcf miralax, per package instructions. Do not drink or drive while taking these medications. If you received narcotic or sedating medications while in the emergency department, do not drive for 24 hours. Store this medication in a safe, secure place and out of reach of children. It is a violation of federal law to give or sell this medication to another person or to use in a manner other than prescribed. The ED will not refill narcotic prescriptions, including prescriptions lost or stolen. To dispose of unwanted medications: 1. [facility] at [address] [place] [address] in [place] has a medication drop box. They accept prescription medications (in pill form) Saturday through Saturday 9:00 a.m. to 5:00 p.m. 2. [facility] accepts prescription medications (in pill form only) for disposal year round. Call for more information. 3. Contact the [facility] for the next [facility] sponsored prescription drug collection event. , [phone], or [phone]; EXAM: CT/ABPEW ([id number]) PROCEDURE: Abdomen/Pelvis W INDICATIONS: R flank pain CONTRAST: 100ml [id number] TECHNIQUE: After the administration of intravenous contrast, a CT scan of the abdomen and pelvis was performed. Images were recorded and evaluated at appropriate window settings. Reformats: coronal and sagittal. For radiation dose reduction, the following was used: automated exposure control, adjustment of mA and/or kV according to patient size. COMPARISON: CT abdomen and pelvis without contrast 07/11/2022 FINDINGS: Image quality: Diagnostic. Lower chest: Unremarkable. Liver: No solid mass. Gallbladder: No radiopaque stones or wall thickening. Biliary tree: No intrahepatic or extrahepatic dilation, accounting for age. Spleen: No splenomegaly. Pancreas: No pancreatic ductal dilation. Adrenals: No adrenal nodule. Kidneys and ureters: No hydronephrosis. No renal cystic lesion which requires follow up. No solid mass. Stomach, bowel and peritoneum: No gastric or small bowel dilation. No abnormal wall thickening. No pathologic free fluid. Small hiatal hernia Lymph nodes: No central or retroperitoneal adenopathy. Vessels: No infrarenal aortic aneurysm. Patent portal vein. PELVIS Reproductive organs: Unremarkable. Bladder: No abnormal wall thickening, accounting for underdistention. Pelvic lymph nodes: No pelvic adenopathy by size criteria. Bones: No acute fracture or dislocation. Unchanged and mildly scalloped appearance of the inner table of the pubic symphysis (2/135). Mild bilateral sacroiliac joint osteophytes or arthritis. Other: No significant ventral or inguinal hernia. IMPRESSION: 1.No CT evidence of obstructive urolithiasis or hydronephrosis. 2.Nonspecific finding of scalloping along the inner table of the pubic symphysis. This finding may represent sequelae of multiparity, osteitis pubis, or possibly hyperparathyroidism. Discharge Date/Time: 11/20/23 19:00
[2023-11-20 19:06] VITALS: BP 146/99; O2SAT 100
== END 2023-11-20 19:00 | disposition home or self-care (01) ==
LOC: ED 13:43
DX: N30.01 Acute cystitis with hematuria (principal); R10.9 Unspecified abdominal pain; M54.9 Dorsalgia, unspecified; F17.200 Nicotine dependence, unspecified, uncomplicated
CPT/HCPCS: 36415; 74177; 80053; 81001; 83690; 85025; 99284; Q9967; 81003; 87086